=== PATIENT | female | born 1940 | race Caucasian/White ===

== ENCOUNTER → 2020-07-15 12:30 | Outpatient (CLI) | payer MEDICARE, SELFPAY ==
--- NOTE | 2020-07-15 12:41 | XR_ITS ---
PROCEDURE: XR CHEST PORTABLE CLINICAL HISTORY: COVID TESTING COMPARISON: CR CXR CHEST(2 VIEWS-NOT PORTABLE) from 06/22/2014 CR CXR CHEST(2 VIEWS-NOT PORTABLE) from 08/10/2016 FINDINGS: The cardiomediastinal silhouette and pulmonary vascularity are within normal limits. The lungs are clear without infiltrates, suspicious nodules, or pleural effusions. No acute bony abnormalities. There is a metallic plate with multiple threaded screws extending from right humeral head to the proximal humeral shaft IMPRESSION: No acute findings. Dictated by: Dr. Minesh Masters MD 07/15/2020 13:15 Dr. Minesh Masters MD in [place] 07/15/2020 13:15
[2020-07-15 13:06] LABS: Basophils # 0.1 K/mm3 (0-0.2); Basophils % 0.8 % (0.1-2.0); Eosinophils # 0.2 K/mm3 (0.0-0.4); Eosinophils % 2.7 % (0.1-12.0); Hematocrit 47.9 % (37.0-47.0); Hemoglobin 15.1 g/dL (12.2-16.2); Lymphocytes # 2.7 K/mm3 (0.7-4.5); Lymphocytes % 33.4 % (10-50); Mean Corpuscular HGB Conc 31.5 g/dL (31.8-35.4); Mean Corpuscular Hemoglobin 28.3 pg (27.0-31.2); Mean Platelet Volume 7.7 fl (7.4-10.4); Monocytes # 0.6 K/mm3 (0.1-1.0); Neutrophils # 4.5 K/mm3 (1.8-7.8); Neutrophils % 56.1 % (37.0-80.0); Platelet Count 236 K/mm3 (142-424); Red Blood Count 5.33 M/mm3 (4.20-5.40); Red Cell Distribution Width 14.4 % (11.5-17.5)
== END ==
PROVIDERS: PCP Family Medicine; Visit Provider Nurse Practitioner
DX: Z20.822 Contact with and (suspected) exposure to COVID-19 (principal)
CPT/HCPCS: 36415; 71045; 85025; U0003

== ENCOUNTER 2021-01-05 19:22 | Emergency (ER) | payer MEDICARE, SELFPAY ==
[2021-01-05 19:22] VITALS: BP 122/69; PULSE 86; RESP 18; TEMP 36.9; O2SAT 94; BMI 31.1
--- NOTE | 2021-01-05 20:21 | PC.NURSE ---
calling [facility] for Dr. Travis Muniz- ophthalmology.
--- NOTE | 2021-01-05 20:24 | PC.NURSE ---
Dr. Parra s/w Dr. Muniz
--- NOTE | 2021-01-05 20:30 | PC.NURSE ---
Per Dr. Muniz- he'd like pt to do 1drop/hr while awake to R eye of prescribed drops. Pt to see Dr. Muniz's office at 0900 01/06. Pt to use drops up till 1 hr prior to appt.
--- NOTE | 2021-01-05 20:35 | HMH.EDGENADL ---
ED Disposition Clinical Impression: Other acute postprocedural pain Eye pain Qualifiers: Laterality: right Qualified Code(s): H57.11 - Ocular pain, right eye Disposition: Home, Self-Care Condition on Discharge: Good Instructions: DI for Eye Pain Additional Instructions: see opth in am Referrals: Fidel Sabillon MD [Primary Care Provider] - - Critical Care Critical Care Time: No Attestation: On 01/05/21, the high probability of a clinically significant, sudden or life threatening deterioration of the following system(s) required my full and direct attention, intervention and personal management. The time I documented below is in addition to time spent performing reported procedures but includes the following listed in this critical care notation. Medical Decision Making - Medical Records Medical records reviewed: Yes: I reviewed the patient's medical records. - Yandel Inquiry Pt receiving controlled substance: No Vital Signs: 01/05/21 19:22 Temperature 98.4 F Temperature Source Oral Pulse Rate [Apical] 86 Respiratory Rate 18 Blood Pressure [Right Arm] 122/69 Blood Pressure Mean [Right Arm] 86 Blood Pressure Source [Right Arm] Automatic Cuff Blood Pressure Position [Right Arm] Sitting 02 Sat by Pulse Oximetry 94 L Oxygen Delivery Method Room Air - Physician Consults Physician Consulted: eye surg Reason -: Pt condition Medical Decision Narrative: post procedure rt eye pain - use eye drop q1h till asleep and in am and see dr at 0900 General Adult HPI - General Chief complaint: PAIN Stated complaint: R eye pain (laser surgery Dec) Time Seen by Provider: 01/05/21 20:00 Mode of Arrival: Ambulatory Source of Information: Patient, Medical Record Limitations: No Limitations Description of Symptoms (Recalled from ER Triage Doc. by RN): Patient states that she had right sided glaucoma laser surgery today in [place] by . Patient states that her right eye was hurting following the procedure and her vision was blurry so she went to the pharmacy and picked up her prescription eye drops that were ordered and used one. States that the eye drop helped but didn't stop all of her pain. States that she took one of her prescription pain pills that she is ordered, which is a norco 7.5 and it has not alleviated her pain either. States that her vision is also blurry post surgery. - History of Present Illness HPI narrative: had eye procedure this afternoon and about 1 hr later had pain to rt eye with blurred vision and has thrombing pain - has used eye drops- no other sx Onset (ago): hour(s) Location: eyes Severity: moderate Associated symptoms: denies other symptoms Treatments prior to arrival: none - Related Data Home Medications Medication Instructions Recorded Confirmed Amlodipine Besylate [Norvasc 5mg 5 mg PO DAILY 01/05/21 01/05/21 tablet] Amlodipine Besylate [Norvasc 5mg 5 mg PO DAILY 01/05/21 01/05/21 tablet] Beclomethasone Dipropionate [Qvar 10.6 gm IH DAILY 01/05/21 01/05/21 Redihaler] Duloxetine HCl 60 mg PO DAILY 01/05/21 01/05/21 Duloxetine HCl [Cymbalta 30mg 30 mg PO DAILY 01/05/21 01/05/21 capsule] Hydrocodone/Acetaminophen 1 tab PO TID 01/05/21 01/05/21 [Hydrocodone-Acetamin 7.5-325] Montelukast Sodium 10 mg PO DAILY 01/05/21 01/05/21 Pravastatin Sodium 80 mg PO HS 01/05/21 01/05/21 Prednisolone Acetate/Bromfenac 3.5 ml OP QID 01/05/21 01/05/21 [Prednisolone 1%-Bromfen 0.075%] Pregabalin [Lyrica 100mg Cap] 100 mg PO DAILY 01/05/21 01/05/21 lisinopriL [Lisinopril] 20 mg PO DAILY 01/05/21 01/05/21 Allergies Allergy/AdvReac Type Severity Reaction Status Date / Time Sulfa (Sulfonamide Allergy Mild Unverified 02/05/17 14:29 Antibiotics) [SULFA (SULFONAMIDE ANTIBIOTICS)] [facility] History - Hepatitis A Screen Drug use history?: No High risk sexual behaviors?: No History of sexually transmitted infection?: No Curren
[2021-01-05 21:12] VITALS: BP 119/58; PULSE 60; RESP 22; TEMP 36.8; O2SAT 97
== END 2021-01-05 21:15 | disposition home or self-care (01) ==
PROVIDERS: Emergency Provider Emergency Medicine; PCP Family Medicine
DX: G89.18 Other acute postprocedural pain (principal); H57.11 Ocular pain, right eye; H40.9 Unspecified glaucoma; Z88.2 Allergy status to sulfonamides
CPT/HCPCS: 99281

== ENCOUNTER → 2021-07-22 10:21 | Outpatient (CLI) | payer MEDICARE, SELFPAY ==
[2021-07-22 11:06] LABS: Basophils # 0.2 K/mm3 (0-0.2); Basophils % 2.5 % (0.1-2.0); Eosinophils # 0.3 K/mm3 (0.0-0.4); Eosinophils % 3.1 % (0.1-12.0); Lymphocytes # 2.9 K/mm3 (0.7-4.5); Lymphocytes % 33.6 % (10-50); Mean Corpuscular HGB Conc 33.4 g/dL (31.8-35.4); Mean Corpuscular Hemoglobin 29.8 pg (27.0-31.2); Mean Corpuscular Volume 89.1 fl (81-99); Mean Platelet Volume 8.6 fl (7.4-10.4); Monocytes # 0.6 K/mm3 (0.1-1.0); Monocytes % 7.2 % (1.7-9.3); Neutrophils # 4.7 K/mm3 (1.8-7.8); Neutrophils % 53.6 % (37.0-80.0); Platelet Count 227 K/mm3 (142-424); Red Blood Count 5.05 M/mm3 (4.20-5.40); Red Cell Distribution Width 14.7 % (11.5-17.5); White Blood Count 8.7 K/mm3 (4.8-10.8)
[2021-07-22 11:41] LABS: Alanine Aminotransferase 18 U/L (12-78); Albumin Level 4.2 g/dl (3.5-5.0); Albumin/Globulin Ratio 1.8 (1.1-1.8); Alkaline Phosphatase 93 U/L (38-126); Anion Gap 12.3 mEq/L (5-15); Aspartate Amino Transferase 35 U/L (14-36); Blood Urea Nitrogen 19 mg/dl (7-17); Calcium 9.6 mg/dl (8.4-10.2); Carbon Dioxide 29 mmol/L (22.0-30.0); Chloride 102 mmol/L (98-107); Chol/HDL Ratio 2.9 (1-3.5); Cholesterol 159 mg/dl (140-200); Estimated Glomerular Filt Rate 53 ml/min (>60); GFR (African American) 64 ML/MIN (>60); Globulin 2.3 g/dL (1.3-3.2); Glucose 105 mg/dl (74-100); HDL Cholesterol 54 mg/dl (40-60); Potassium 4.3 mmoL/L (3.5-5.1); Sodium 139 mmol/L (136-145); Total Protein,Serum 6.5 g/dl (6.3-8.2); Triglycerides 113 mg/dl (30-150); VLDL Cholesterol 23 mg/dL (0-40)
[2021-07-22 11:43] LABS: Bilirubin,Total 0.1 mg/dl (0.2-1.3)
[2021-07-22 11:52] LABS: Direct LDL Cholesterol 74.76 mg/dL (100-129)
[2021-07-22 11:57] LABS: T4 (Thyroxine) 6.7 ug/dl (5.53-11.0)
[2021-07-22 11:58] LABS: 25-OH Vitamin D, Total 67.3 ng/mL (30-100)
[2021-07-22 12:11] LABS: Thyroid Stimulating Hormone 5.96 uIU/mL (0.465-4.68)
== END ==
PROVIDERS: PCP Family Medicine; Visit Provider Family Medicine
DX: I10 Essential (primary) hypertension (principal); E78.5 Hyperlipidemia, unspecified; E03.9 Hypothyroidism, unspecified; E55.9 Vitamin D deficiency, unspecified; M79.7 Fibromyalgia
CPT/HCPCS: 36415; 80053; 80061; 82306; 84436; 84443; 85025

== ENCOUNTER 2021-09-02 20:48 | Observation (INO) | payer MEDICARE, SELFPAY ==
[2021-09-02 20:48] VITALS: BP 169/78; PULSE 82; RESP 18; TEMP 36.8; O2SAT 95; BMI 30.8
[2021-09-02 20:58] VITALS: BMI 30.8
--- NOTE | 2021-09-02 20:58 | XR_ITS ---
PROCEDURE INFORMATION: Exam: XR Chest Exam date and time: 09/02/2021 10:00 PM Age: 81 years old Clinical indication: Chest pressure; Patient HX: Several recent falls, confusion, neck/back pain; Additional info: Fall TECHNIQUE: Imaging protocol: Radiologic exam of the chest. Views: 4 or more views. COMPARISON: CR XR CHEST PORTABLE 07/15/2020 1:01 PM FINDINGS: Lungs: Well aerated with no evidence of consolidations, interstitial patterns or pulmonary nodules. Pleural spaces: No evidence of effusions or pneumothorax. Heart/Mediastinum: The cardiomediastinal silhouette is normal in size and configuration. There is no evidence of cardiomegaly. Bones/joints: Status post ORIF of the right proximal humerus. No acute fractures identified. IMPRESSION: 1. No radiographic evidence of an acute pulmonary process. 2. Status post ORIF of the right proximal humerus.
--- NOTE | 2021-09-02 20:58 | CT_ITS ---
PROCEDURE INFORMATION: Exam: CT Lumbar Spine Without Contrast Exam date and time: 09/02/2021 9:37 PM Age: 81 years old Clinical indication: Low back pain; Patient HX: Several recent falls, confusion, neck/back pain; Additional info: Fall TECHNIQUE: Imaging protocol: Computed tomography of the lumbar spine without contrast. Radiation optimization: All CT scans at this facility use at least one of these dose optimization techniques: automated exposure control; mA and/or kV adjustment per patient size (includes targeted exams where dose is matched to clinical indication); or iterative reconstruction. COMPARISON: [facility] CT LUMBAR SPINE W/O CONTRAST 03/17/2016 4:57 AM FINDINGS: Bones/joints: No acute fracture. Normal alignment. Levoscoliosis of approximately 31 degrees. Discs/Spinal canal/Neural foramina: Lumbar disc desiccation and bulging annuli. Facet and ligamentum hypertrophy changes, as well as mild dorsal/lateral osteophytes causing multifactorial moderate central canal narrowing at L4-L5 and L5-S1. Foraminal narrowing from the level of L2 to the level of S1. Soft tissues: Unremarkable. IMPRESSION: 1. No acute fractures or listhesis. 2. Levoscoliosis of approximately 31 degrees. 3. Degenerative changes and spondylosis multifactorial moderate central canal narrowing at L4-L5 and L5-S1 and narrowing from the level of L2 to the level of S1.
--- NOTE | 2021-09-02 20:58 | XR_ITS ---
PROCEDURE INFORMATION: Exam: XR Right Knee Exam date and time: 09/02/2021 9:57 PM Age: 81 years old Clinical indication: Knee; Right; Patient HX: Several recent falls, confusion, neck/back pain; Additional info: Fall TECHNIQUE: Imaging protocol: Radiologic exam of the Right knee. Views: 3 views. COMPARISON: No relevant prior studies available. FINDINGS: Bones/joints: The regional bones are intact. No lytic or blastic lesions are identified. There is no evidence of dislocation. Soft tissues: Normal. IMPRESSION: No acute fractures or dislocations.
--- NOTE | 2021-09-02 20:58 | XR_ITS ---
PROCEDURE INFORMATION: Exam: XR Pelvis Exam date and time: 09/02/2021 10:02 PM Age: 81 years old Clinical indication: Pelvic pain; Patient HX: Several recent falls, confusion, neck/back pain; Additional info: Fall TECHNIQUE: Imaging protocol: Radiologic exam of the pelvis. Views: 1 or 2 view. COMPARISON: [facility]/O CT ABD PELVIS W/O CONTRAST 03/17/2016 4:52 AM FINDINGS: Bones/joints: Intact. No acute fractures or dislocations identified. There are no lytic or blastic lesions. Decrease in the hip joint spaces in keeping with the patient's age. Mild lumbar dextroscoliosis, disc desiccation and lumbar spondylosis. Soft tissues: Ortiz catheter in the topography of the urinary bladder. IMPRESSION: 1. No acute fractures or dislocations. 2. Degenerative changes.
--- NOTE | 2021-09-02 20:58 | CT_ITS ---
PROCEDURE INFORMATION: Exam: CT Cervical Spine Without Contrast Exam date and time: 09/02/2021 9:31 PM Age: 81 years old Clinical indication: Neck pain; Patient HX: Several recent falls, confusion, neck/back pain; Additional info: Fall TECHNIQUE: Imaging protocol: Computed tomography of the cervical spine without contrast. Radiation optimization: All CT scans at this facility use at least one of these dose optimization techniques: automated exposure control; mA and/or kV adjustment per patient size (includes targeted exams where dose is matched to clinical indication); or iterative reconstruction. COMPARISON: [facility] CT CERVICAL SPINE W/O CONT 03/17/2016 5:09 AM FINDINGS: Bones/joints: No acute fracture. Normal alignment. Discs/Spinal canal/Neural foramina: Diffuse disc desiccation. Mild dorsal/lateral osteophytes. No evidence of disc herniations, severe spinal canal stenosis. Mild multilevel foraminal narrowing. Lungs: Lung apices are normal. Soft tissues: Unremarkable. IMPRESSION: 1. No acute fractures or listhesis . 2. Degenerative changes.
--- NOTE | 2021-09-02 20:58 | XR_ITS ---
PROCEDURE INFORMATION: Exam: XR Left Knee Exam date and time: 09/02/2021 9:54 PM Age: 81 years old Clinical indication: Knee; Left; Patient HX: Several recent falls, confusion, neck/back pain; Additional info: Fall TECHNIQUE: Imaging protocol: Radiologic exam of the Left knee. Views: 3 views. COMPARISON: No relevant prior studies available. FINDINGS: Bones/joints: The regional bones are intact. No lytic or blastic lesions are identified. There is no evidence of dislocation. Chondrocalcinosis. Soft tissues: Normal. IMPRESSION: 1. No acute fractures or dislocation. 2. Chondrocalcinosis.
--- NOTE | 2021-09-02 20:58 | CT_ITS ---
PROCEDURE INFORMATION: Exam: CT Thoracic Spine Without Contrast Exam date and time: 09/02/2021 9:34 PM Age: 81 years old Clinical indication: Pain in thoracic spine; Patient HX: Several recent falls, confusion, neck/back pain; Additional info: Fall TECHNIQUE: Imaging protocol: Computed tomography of the thoracic spine without contrast. Radiation optimization: All CT scans at this facility use at least one of these dose optimization techniques: automated exposure control; mA and/or kV adjustment per patient size (includes targeted exams where dose is matched to clinical indication); or iterative reconstruction. COMPARISON: [facility] CT THORACIC SPINE W/O CONTRAST 03/17/2016 5:03 AM FINDINGS: Bones/joints: No acute fracture. Normal alignment. Discs/Spinal canal/Neural foramina: No significant disc protrusion. No severe spinal canal stenosis. No significant neural foraminal narrowing. Soft tissues: Unremarkable. IMPRESSION: No acute fractures or listhesis.
--- NOTE | 2021-09-02 20:58 | CT_ITS ---
PROCEDURE INFORMATION: Exam: CT Head Without Contrast Exam date and time: 09/02/2021 9:28 PM Age: 81 years old Clinical indication: Altered mental status/memory loss; Confusion or disorientation; Patient HX: Several recent falls, confusion, neck/back pain; Additional info: Fall TECHNIQUE: Imaging protocol: Computed tomography of the head without contrast. Radiation optimization: All CT scans at this facility use at least one of these dose optimization techniques: automated exposure control; mA and/or kV adjustment per patient size (includes targeted exams where dose is matched to clinical indication); or iterative reconstruction. COMPARISON: [facility] CT CERVICAL SPINE W/O CONT 03/17/2016 5:09 AM FINDINGS: Brain: There is mild enlargement of ventricular system and cortical sulci without evidence of mass effect or midline shift. Patchy areas of hypodensity without mass-effect are noted in the periventricular white matter compatible with chronic microvascular ischemic disease. The monsivais/white matter interfaces are preserved. There are no extra-axial fluid collections.The basal cisterns are patent. Cerebral ventricles: No hydrocephalus. Paranasal sinuses: Well aerated. No fluid levels. Mastoid air cells: Visualized mastoid air cells are well aerated. Bones/joints: Unremarkable. No acute fracture. Soft tissues: Unremarkable. IMPRESSION: 1. No evidence of intracranial hemorrhage, mass effect, midline shift or hydrocephalus. 2. Involutional changes. 3. Findings compatible with chronic microvascular ischemic disease.
--- NOTE | 2021-09-02 21:00 | ECG_ITS ---
APPROVED REPORT Exam: Resting ECG HR:76 bpm ECG Measurements Heart Rate 76 AXES MO 170 P 64 QRSd 89 QRS -5 QT 379 T 67 QTc 410 Conclusion SINUS RHYTHM LOW QRS VOLTAGE IN PRECORDIAL LEADS [QRS DEFLECTION < 1.0 mV IN CHEST LEADS] BORDERLINE ECG UNCONFIRMED REPORT Electronically signed by : Obed Carrington MD 09/03/2021 16:24:15
[2021-09-02 21:01] LABS: Coronavirus 19, PCR Not Detected (NotDetected); Influenza A, PCR Not Detected (NotDetected); Influenza B, PCR Not Detected (NotDetected)
[2021-09-02 21:03] VITALS: BP 172/80; PULSE 76; O2SAT 100
[2021-09-02 21:11] LABS: Basophils # 0.2 K/mm3 (0-0.2); Eosinophils # 0.2 K/mm3 (0.0-0.4); Eosinophils % 3.2 % (0.1-12.0); Hemoglobin 14.8 g/dL (12.2-16.2); Lymphocytes # 2.8 K/mm3 (0.7-4.5); Lymphocytes % 38.2 % (10-50); Mean Corpuscular HGB Conc 32.2 g/dL (31.8-35.4); Mean Corpuscular Hemoglobin 29.4 pg (27.0-31.2); Mean Corpuscular Volume 91.4 fl (81-99); Mean Platelet Volume 8.9 fl (7.4-10.4); Monocytes # 0.5 K/mm3 (0.1-1.0); Monocytes % 6.8 % (1.7-9.3); Neutrophils # 3.7 K/mm3 (1.8-7.8); Neutrophils % 49.8 % (37.0-80.0); Platelet Count 212 K/mm3 (142-424); Red Blood Count 5.03 M/mm3 (4.20-5.40); White Blood Count 7.4 K/mm3 (4.8-10.8)
[2021-09-02 21:24] VITALS: BP 125/105; BP 172/80; BP 177/88; PULSE 76; PULSE 77; PULSE 82
--- NOTE | 2021-09-02 21:28 | PC.NURSE ---
Pt gone to RAD for CT and XRAY
[2021-09-02 21:29] LABS: Alanine Aminotransferase 22 U/L (12-78); Albumin Level 3.9 g/dl (3.5-5.0); Albumin/Globulin Ratio 1.6 (1.1-1.8); Alkaline Phosphatase 82 U/L (38-126); Anion Gap 10.5 mEq/L (5-15); Aspartate Amino Transferase 48 U/L (14-36); Bilirubin,Total 0.2 mg/dl (0.2-1.3); Blood Urea Nitrogen 14 mg/dl (7-17); Calcium 9.1 mg/dl (8.4-10.2); Carbon Dioxide 26 mmol/L (22.0-30.0); Chloride 106 mmol/L (98-107); Creatinine Clearance Estimated 48 mL/min (50-200); Estimated Glomerular Filt Rate 60 ml/min (>60); GFR (African American) 72 ML/MIN (>60); Globulin 2.5 g/dL (1.3-3.2); Glucose 127 mg/dl (74-100); Potassium 4.5 mmoL/L (3.5-5.1); Sodium 138 mmol/L (136-145); Total Protein,Serum 6.4 g/dl (6.3-8.2)
[2021-09-02 21:31] LABS: Microscopic, Urine URINE MICROSCOPIC (MICROSCOPIC)
[2021-09-02 21:32] LABS: Erythrocyte Sedimentation Rate 6 mm/hr (0-30)
[2021-09-02 21:34] LABS: C-Reactive Protein 2.1 mg/L (0-4)
[2021-09-02 21:40] LABS: Lactic Acid 1.1 mmol/L (0.7-2.1)
[2021-09-02 21:44] LABS: Troponin I < 0.01 ng/ml (0.00-0.034)
[2021-09-02 21:44] LABS: Appearance,Urine CLEAR (Clear); Bilirubin,Urine Negative (Negative); Blood, Urine Negative (Negative); Color,Urine YELLOW (Yellow); Glucose,Urine (UA) Negative (Negative); Ketones,Urine Negative (Negative); Leukocyte Esterase,Urine 1+ (Negative); Nitrate,Urine Negative (Negative); Protein,Urine Negative (Negative); Specific Gravity, Urine <= 1.005 (1.005-1.030); Urobilinogen,Urine 0.2 EU/dl (0.2)
[2021-09-02 22:46] VITALS: BP 155/66; PULSE 78; O2SAT 100
--- NOTE | 2021-09-02 22:50 | PC.NURSE ---
[facility]CS 15- NO COMPLAINTS VOICED. NO ACUTE DISTRESS NOTED. FAMILY AT BEDSIDE. PT REPOSITIONED FOR COMFORT.
[2021-09-02 23:00] VITALS: BP 144/73; PULSE 73; O2SAT 97
[2021-09-02 23:30] VITALS: BP 149/68; PULSE 73; O2SAT 95
[2021-09-03] VITALS (16 sets, daily range): BP systolic 105–145; BP diastolic 40–69; PULSE 65–90; RESP 16–18; TEMP 36.6–37; O2SAT 91–96; BMI 31.3
--- NOTE | 2021-09-03 00:48 | HMH.EDFALL ---
ED Disposition Clinical Impression: Weakness Disposition: Admitted as Observation Condition on Discharge: Fair - Critical Care Critical Care Time: No Attestation: On 09/02/21, the high probability of a clinically significant, sudden or life threatening deterioration of the following system(s) required my full and direct attention, intervention and personal management. The time I documented below is in addition to time spent performing reported procedures but includes the following listed in this critical care notation. Medical Decision Making - Medical Records Medical records reviewed: Yes: I reviewed the patient's medical records. - Yandel Inquiry Pt receiving controlled substance: No Vital Signs: 09/02/21 20:48 09/02/21 21:03 09/02/21 21:24 Temperature 98.3 F Temperature Source Oral Pulse Rate 76 Pulse Rate [Left Radial] 82 Pulse Rate [Orthostatic Lying Right] 76 Pulse Rate [Orthostatic Sitting Right] 77 Pulse Rate [Orthostatic Standing Right] 82 Respiratory Rate 18 Blood Pressure 172/80 H Blood Pressure [Orthostatic Lying Right Arm] 172/80 H Blood Pressure [Orthostatic Sitting Right Arm] 177/88 H Blood Pressure [Orthostatic Standing Right Arm] 125/105 H Blood Pressure [Right Arm] 169/78 H Blood Pressure Mean Blood Pressure Mean [Right Arm] 108 Blood Pressure Source [Right Arm] Automatic Cuff Blood Pressure Position Blood Pressure Position [Right Arm] Sitting 02 Sat by Pulse Oximetry 95 100 Oxygen Delivery Method Room Air Room Air 09/02/21 22:46 09/02/21 23:00 09/02/21 23:30 Temperature Temperature Source Pulse Rate 78 73 73 Pulse Rate [Left Radial] Pulse Rate [Orthostatic Lying Right] Pulse Rate [Orthostatic Sitting Right] Pulse Rate [Orthostatic Standing Right] Respiratory Rate Blood Pressure 155/66 H 144/73 H 149/68 H Blood Pressure [Orthostatic Lying Right Arm] Blood Pressure [Orthostatic Sitting Right Arm] Blood Pressure [Orthostatic Standing Right Arm] Blood Pressure [Right Arm] Blood Pressure Mean Blood Pressure Mean [Right Arm] Blood Pressure Source [Right Arm] Blood Pressure Position Blood Pressure Position [Right Arm] 02 Sat by Pulse Oximetry 100 97 95 Oxygen Delivery Method Room Air Room Air Room Air 09/03/21 00:00 09/03/21 00:30 09/03/21 01:00 Temperature Temperature Source Pulse Rate 77 70 73 Pulse Rate [Left Radial] Pulse Rate [Orthostatic Lying Right] Pulse Rate [Orthostatic Sitting Right] Pulse Rate [Orthostatic Standing Right] Respiratory Rate Blood Pressure 144/67 H 145/68 H 145/63 H Blood Pressure [Orthostatic Lying Right Arm] Blood Pressure [Orthostatic Sitting Right Arm] Blood Pressure [Orthostatic Standing Right Arm] Blood Pressure [Right Arm] Blood Pressure Mean Blood Pressure Mean [Right Arm] Blood Pressure Source [Right Arm] Blood Pressure Position Blood Pressure Position [Right Arm] 02 Sat by Pulse Oximetry 94 L 95 95 Oxygen Delivery Method Room Air Room Air Room Air 09/03/21 01:30 09/03/21 02:00 09/03/21 02:30 Temperature 98.3 F Temperature Source Oral Pulse Rate 75 76 74 Pulse Rate [Left Radial] Pulse Rate [Orthostatic Lying Right] Pulse Rate [Orthostatic Sitting Right] Pulse Rate [Orthostatic Standing Right] Respiratory Rate 16 Blood Pressure 117/56 L 105/60 L 130/58 L Blood Pressure [Orthostatic Lying Right Arm] Blood Pressure [Orthostatic Sitting Right Arm] Blood Pressure [Orthostatic Standing Right Arm] Blood Pressure [Right Arm] Blood Pressure Mean 63 Blood Pressure Mean [Right Arm] Blood Pressure Source [Right Arm] Blood Pressure Position Blood Pressure Position [Right Arm] 02 Sat by Pulse Oximetry 94 L 91 L 95 Oxygen Delivery Method Room Air Room Air 09/03/21 02:49 09/03/21 03:31 Temperature 98.3 F Temperature Source Oral Pulse Rate 74 Pulse Rate [Left
[2021-09-03 01:17] LABS: Troponin I 0.02 ng/ml (0.00-0.034)
--- NOTE | 2021-09-03 03:11 | PC.NURSE ---
PT ARRIVED TO FLOOR VIA STRETCHER FROM ED W/STAFF @ [id number]
[2021-09-03 03:51] LABS: Troponin I 0.01 ng/ml (0.00-0.034)
--- NOTE | 2021-09-03 08:27 | P.CONPHA_ITS ---
[facility] Pharmacy VTE Monitoring - Patient Demographics Admission date: 09/03/21 Report Date: 09/03/21 Time: 08:27 Allergies/Adverse Reactions: Patient Allergies Sulfa (Sulfonamide Antibiotics) [SULFA (SULFONAMIDE ANTIBIOTICS)] Allergy (Mild, Verified 01/05/21 21:13) Height: 1.52 m Weight: 72.393 kg Patient Problems: Current Active Problems Weakness (Acute) - VTE Risk Labs: VTE Related Lab Results Hgb 14.8 g/dL (12.2-16.2) 09/02/21 21:03 Hct 46.0 % (37.0-47.0) 09/02/21 21:03 Plt Count 212 K/mm3 (142-424) 09/02/21 21:03 BUN 14 mg/dl (7-17) 09/02/21 21:03 Creatinine 0.90 mg/dl (0.52-1.04) 09/02/21 21:03 Estimated Creat Clear 48 mL/min (50-200) 09/02/21 21:03 Was VTE Risk Assessment Performed: Yes VTE Score: 4 VTE Risk Level: Low Risk Clinical Trial Participant: No - Prophylaxis VTE Prophylaxis Ordered?: Yes Types of VTE Prophylaxis: TEDS Knee High
--- NOTE | 2021-09-03 08:36 | HMH.PHAINT ---
home medication list verified using list from outpatient pharmacy
--- NOTE | 2021-09-03 09:26 | HMH.HP ---
*Admission Date: 09/03/21 *Chief complaint: Fall, leg weakness *History of present illness: Ms. Rizvi is a 81-year-old white female with a history of hypertension, hyperlipidemia, depression, fibromyalgia, and chronic low back pain. She was brought to the emergency room by ambulance in the carbon paper interleafer hours this morning after suffering a fall at home. States she was walking through the house when her legs simply became weak and gave out. She fell forward landing on her knees and thinks she also hit her head. There was no loss of consciousness. She was able to crawl into her chair but could not walk or stand up because of leg weakness. States her arms were also weak at the time. She lives alone but was able to contact her son who arranged for ambulance transport to the ER. She was evaluated in the ER with multiple x-rays, CT scans, and blood work. X-ray showed no acute findings. Laboratory data was within normal limits except her urinalysis showed 1+ leukocytes. She currently is on antibiotics at home for UTI. At the time of my exam this morning, she feels like her arms and legs are getting back to normal although has not been out of bed. She otherwise has no complaints. [facility] History Medical History: Reports:: Asthma, Gastroesophageal Reflux Disease(GERD), Hyperlipidemia, Hypertension Denies:: Cancer, Diabetes Mellitus Type 1, Diabetes Mellitus Type 2, MRSA *Have you ever received a pneumonia vaccine?: Yes *Have you received a flu vaccine this season?: Yes Other Medical History: Reports: Arthritis, Cataracts, Fibromyalgia, Glaucoma, Thyroid Disease, Other (Chronic low back pain, seasonal allergies) Laterality Cases: Bilateral: Cataract Other Surgeries: Yes: Cholecystectomy, Colonoscopy, Hysterectomy-Partial, Other (Right shoulder surgery) Amputation: No Fractures: Yes (both shoulders) - *Social History Last grade of school completed: High school graduate Smoking Status: Never smoker Alcohol Intake: never *Occupational Status:: retired Housing: house Household Members: none *Travel in the last 8 weeks: None Family Hx:: Cancer, Stroke Review of Systems - Constitutional Reports fever(s), Reports weakness, Denies body ache(s) - Eyes Denies change in vision - ENT Denies hearing loss, Denies sore throat - *Cardiovascular Reports rapid, pounding, or irregular heartbeat, Denies chest pain, Denies shortness of breath, Denies leg swelling - *Respiratory Denies chest congestion - *Gastrointestinal Denies abdominal pain, Denies change in bowel habits, Denies black, tarry stools - *Genitourinary Denies difficulty urinating, Denies urinary incontinence - *Musculoskeletal Reports abnormal walking, Reports back pain, Reports muscle weakness - Integumentary/Breasts Denies change in skin color, Denies rash - *Neurologic Reports weakness, Denies dizziness, Denies localized weakness, Denies headache(s), Denies memory loss - Psychiatric Reports anxiety, Denies behavioral changes - Endocrine Denies cold intolerance - Hematologic/Lymphatic Denies easy bruising Meds Home Medications Medication Instructions Recorded Confirmed Type Beclomethasone Dipropionate [Qvar 1 puff IH BID 01/05/21 09/03/21 History Redihaler] Duloxetine HCl 60 mg PO DAILY 01/05/21 09/03/21 History Duloxetine HCl [Cymbalta 30mg 30 mg PO DAILY 01/05/21 09/03/21 History capsule] Hydrocodone/Acetaminophen 1 tab PO TID PRN 01/05/21 09/03/21 History [Hydrocodone-Acetamin 7.5-325] Montelukast Sodium 10 mg PO PM 01/05/21 09/03/21 History Pregabalin [Lyrica 100mg Cap] 100 mg PO TID 01/05/21 09/03/21 History lisinopriL [Lisinopril] 20 mg PO DAILY 01/05/21 09/03/21 History Omeprazole [Omeprazole 20mg 20 mg PO DAILY 09/02/21 09/03/21 History Capsule] Amlodipine Besylate [Norvasc 5mg 5 mg PO DAILY 09/03/21 09/03/21 History tablet] Baclofen [Lioresal 10mg tablet] 10 mg PO TID 09/03/21 09/03/21 History Bimatoprost [Lumigan 0.01%
--- NOTE | 2021-09-03 10:52 | PC.NURSE ---
Rounded on pt, cleaned and straightened room, ice water provided. Pt in bed resting, no needs voiced.
--- NOTE | 2021-09-03 15:58 | HMH.PTEV ---
Physical Therapy Evaluation Rehab PT IP Evaluation Start: 09/03/21 06:29 Freq: ONCE Status: Active Protocol: Document 09/03/21 15:51 PWARIA (Rec: 09/03/21 15:58 PWARIA [id number]) Subjective/History History History This is the initial IP PT evalaution for Dang Rizvi. Pt is an 81 y/o female admitted to [facility] after suffering fall at home. Pt lives alone and became weak at home. Pt reports her legs wouldn't hold her - pt was able to call EMS and was delivered to [facility] ED Subjective Subjective Pt reprots she is feeling better - pt states she uses a chair at to home to ambulate - pt reports she takes a kitchen table chair and turns it around and pushes it to help support her. Rehab PT IP Eval Objective Appearance Patient Behavior Appropriate,Cooperative Patient Orientation Place,Name,Birthday,Year Difficulty following instructions none Speech Pattern Clear,Appropriate Ambulation Patient Able to Ambulate Yes Ambulation Observation IP General Gait Pattern Observation Shuffling Step Ambulation Distance (feet) 10 Ambulation Assistive Device None Ambulation Ability Contact Guard/Hand Hold Balance Ability to Arise Able, uses arms to help Sitting Balance Steady, safe Standing Balance Steady, wide stance Dynamic Sitting Balance Ability Good Dynamic Standing Balance Ability Poor Transfers Bed Transfer Ability Independent Chair Transfer Ability Independent Sit to Stand Bed Transfer Ability Contact Guard/Hand Hold Sit to Stand Chair Transfer Ability Contact Guard/Hand Hold Rehab PT IP prob,goals,plan Problems Date of Evaluation: 09/03/21 PT IP Problems Transfers,Gait,Balance,Self care,Safety Rehab Potential Rehab Potential Fair Equipment Needs Assistive Devices Rolling / Wheeled Walker Plan PT Intervention Plan Transfers,Gait,Balance,Self care,Safety,Therapeutic Exercise PT Plan Frequency BID Duration LOS Discharge Goals Bed Transfer Ability Supervision/Stand by Sit to Stand Chair Transfer Ability Supervision/Stand by Ambulation Assistive Device Rolling Walker Ambulation D
--- NOTE | 2021-09-03 17:34 | PC.NURSE ---
pt was able to transfer with SBA or minor hand holding. She reports being fearful of falling. will continue to monitor.
[2021-09-04] VITALS: BP 109/54; PULSE 87; PULSE 90; RESP 16; TEMP 36.9; O2SAT 91
[2021-09-04 04:00] VITALS: BP 99/54; PULSE 84; PULSE 90; RESP 16; TEMP 37.1; O2SAT 90
[2021-09-04 05:00] VITALS: BMI 31.4
[2021-09-04 06:34] LABS: Basophils % 0.4 % (0.1-2.0); Eosinophils # 0.2 K/mm3 (0.0-0.4); Eosinophils % 2.6 % (0.1-12.0); Hematocrit 40.4 % (37.0-47.0); Hemoglobin 13.1 g/dL (12.2-16.2); Lymphocytes # 2.6 K/mm3 (0.7-4.5); Lymphocytes % 28.8 % (10-50); Mean Corpuscular HGB Conc 32.3 g/dL (31.8-35.4); Mean Corpuscular Hemoglobin 28.2 pg (27.0-31.2); Mean Corpuscular Volume 87.1 fl (81-99); Mean Platelet Volume 8.1 fl (7.4-10.4); Monocytes # 0.7 K/mm3 (0.1-1.0); Monocytes % 7.4 % (1.7-9.3); Neutrophils # 5.4 K/mm3 (1.8-7.8); Neutrophils % 60.9 % (37.0-80.0); Platelet Count 176 K/mm3 (142-424); Red Blood Count 4.64 M/mm3 (4.20-5.40); Red Cell Distribution Width 14.4 % (11.5-17.5); White Blood Count 8.9 K/mm3 (4.8-10.8)
[2021-09-04 06:45] LABS: Anion Gap 6.6 mEq/L (5-15); Blood Urea Nitrogen 10 mg/dl (7-17); Calcium 8.5 mg/dl (8.4-10.2); Carbon Dioxide 27 mmol/L (22.0-30.0); Chloride 110 mmol/L (98-107); Creatinine Clearance Estimated 49 mL/min (50-200); Estimated Glomerular Filt Rate 60 ml/min (>60); GFR (African American) 72 ML/MIN (>60); Glucose 101 mg/dl (74-100); Magnesium 1.9 mg/dl (1.6-2.3); Potassium 3.6 mmoL/L (3.5-5.1); Sodium 140 mmol/L (136-145)
[2021-09-04 08:00] VITALS: BP 146/62; PULSE 87; RESP 16; TEMP 36.6; O2SAT 95
--- NOTE | 2021-09-04 08:59 | PC.NURSE ---
LATE ENTRY - NO ACUTE CHANGES SINCE PREVIOUS ASSESSMENT. PT ALERT AND ORIENTED X 4. MEDICATED PER MAR DURING MY SHIFT FOR PAIN WITH FAVORABLE RESULTS. AROUND BEDTIME - PT RESTLESS AND STATED SHE COULDN'T GO TO SLEEP. MEDICATED PER MAR FOR INSOMNIA. PT ABLE TO REST AFTER MEDICATION ADMINISTRATION. PT HAS BEEN VOIDING PER ABBOTT CATH WITH ADEQUATE URINE OUTPUT. IV INFUSING PER ORDER. PT STATES SHE FEELS MORE RESTED THIS MORNING. NO OTHER NEEDS VOICED AT THIS TIME. CALL LIGHT IN REACH.
--- NOTE | 2021-09-04 09:52 | HMH.ACPN2 ---
<Audrey Joyce - Last Filed: 09/05/21 04:52> Internal Medicine - PN: Subj *Date: 09/05/21 *Time: 04:52 Interval history: She is feeling much better; She is weak but can walk. She is going home. Exam Vital signs and Labs for Last 24 Hours: Temp Pulse Resp BP Pulse Ox 97.9 F 87 16 146/62 H 95 09/04/21 08:00 09/04/21 08:00 09/04/21 08:00 09/04/21 08:00 09/04/21 08:00 Laboratory Results - last 24 hr 09/04/21 06:20: WBC 8.9, RBC 4.64, Hgb 13.1, Hct 40.4, MCV 87.1, MCH 28.2, MCHC 32.3, RDW 14.4, Plt Count 176, MPV 8.1, Neut % (Auto) 60.9, Lymph % (Auto) 28.8, [place] % (Auto) 7.4, Eos % (Auto) 2.6, Baso % (Auto) 0.4, Neut # (Auto) 5.4, Lymph # (Auto) 2.6, [place] # (Auto) 0.7, Eos # (Auto) 0.2, Baso # (Auto) 0.0 09/04/21 06:20: Sodium 140, Potassium 3.6, Chloride 110 H, Carbon Dioxide 27, Anion Gap 6.6, BUN 10 D, Creatinine 0.90, Estimated Creat Clear 49, Estimated GFR 60, Est GFR ( Amer) 72, Glucose 101 H, Calcium 8.5, Magnesium 1.9 I & O for Last 24 hours: Intake & Output 09/01/21 09/02/21 09/03/21 09/04/21 11:59 11:59 11:59 11:59 Intake Total 1000 / 1000 1200 / 1200 Output Total 1400 / 1400 1999 / 1999 Balance -400 / -400 -800 / -800 Weight 159 lb 9.6 oz 160 lb Microbiology Reports for the Last 24 Hours: Microbiology 09/02/21 21:24 Urine,Clean Catch Urine Culture - Preliminary NO GROWTH AFTER 24 HOURS - Constitutional no acute distress Comments: getting in wheelchair to go home - *Routine Respiratory Exam Present: CTA bilaterally (A&P) - *Routine Cardiovascular Exam Present: RRR - *Routine Abdominal Exam Present: soft, normoactive bowel sounds. Absent: tenderness - *Routine Extremities Exam Absent: edema, calf tenderness - *Routine Neurological Exam Present: alert, oriented X3 Assessment and Plan (1) Muscle weakness Status: Acute Category: Medical Code(s): M62.81 - Muscle weakness (generalized) (2) UTI (urinary tract infection) Status: Acute Category: Medical Code(s): N39.0 - Urinary tract infection, site not specified (3) Hypothyroidism Status: Acute Category: Medical Code(s): E03.9 - Hypothyroidism, unspecified (4) Fibromyalgia Status: Acute Category: Medical Code(s): M79.7 - Fibromyalgia (5) Chronic back pain Status: Acute Category: Medical Code(s): M54.9 - Dorsalgia, unspecified; G89.29 - Other chronic pain (6) Depression Status: Acute Category: Medical Code(s): F32.A - Depression, unspecified (7) Hypertension Status: Acute Category: Medical Code(s): I10 - Essential (primary) hypertension - Assessment and plan all Dx Assessment and Plan for all problems:: Discharged to home <Fidel Sabillon - Last Filed: 09/05/21 08:07> Internal Medicine - PN: Subj *Date: 09/04/21 *Time: 08:05 Exam Vital signs and Labs for Last 24 Hours: Temp Pulse Resp BP Pulse Ox 97.9 F 87 16 146/62 H 95 09/04/21 08:00 09/04/21 08:00 09/04/21 08:00 09/04/21 08:00 09/04/21 08:00 I & O for Last 24 hours: Intake & Output 09/02/21 09/03/21 09/04/21 09/05/21 11:59 11:59 11:59 11:59 Intake Total 1000 / 1000 1200 / 1200 Output Total 1400 / 1400 1999 / 1999 Balance -400 / -400 -800 / -800 Weight 159 lb 9.6 oz 159 lb 15.831 oz Microbiology Reports for the Last 24 Hours: Microbiology 09/02/21 21:24 Urine,Clean Catch Urine Culture - Final NO GROWTH AFTER 48 HOURS 09/02/21 21:12 Blood Blood Culture - Preliminary NO GROWTH AFTER 48 HOURS 07/16/22 21:12 Blood Blood Culture - Preliminary NO GROWTH AFTER 48 HOURS Assessment and Plan (1) Muscle weakness Status: Acute Category: Medical Code(s): M62.81 - Muscle weakness (generalized) (2) UTI (urinary tract infection) Status: Acute Category: Medical Code(s): N39.0 - Urinary tract i
[2021-09-04 10:10] VITALS: BMI 31.4
--- NOTE | 2021-09-04 10:14 | SW/DCPLANNER ---
I spoke with this patient this AM regarding plans. Patient lives at home alone and her son checks on her often. I explained options of placement vs home with home health. Patient and son agreed that patient could return home with home health services. Patient prefers to use [facility]: patient information/order has been faxed. Patient has also requested a rollator walker and this will be ordered through [facility]. The plan is for this patient to discharge home today.
--- NOTE | 2021-09-05 22:40 | HMH.DCSUM ---
General - General Admission date:: 09/03/21 <Fidel Sabillon - 09/14/21 22:38> 09/03/21 <Shirley Dean - 09/05/21 22:43> Discharge date: 09/04/21 <Shirley Dean - 09/05/21 22:43> HPI HPI: Ms. Rizvi is a 81-year-old white female with a history of hypertension, hyperlipidemia, depression, fibromyalgia, and chronic low back pain. 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 States she was walking through the house when her legs simply became weak and gave out. She fell forward landing on her knees and thinks she also hit her head. There was no loss of consciousness. She was able to crawl into her chair but could not walk or stand up because of leg weakness. States her arms were also weak at the time. She lives alone but was able to contact her son who arranged for ambulance transport to the ER. She was evaluated in the ER with multiple x-rays, CT scans, and blood work. X-ray showed no acute findings. Laboratory data was within normal limits except her urinalysis showed 1+ leukocytes. She currently is on antibiotics at home for UTI. At the time of my exam this morning, she feels like her arms and legs are getting back to normal although has not been out of bed. She otherwise has no complaints. <Shirley Dean - 09/05/21 22:43> Hospital Course Hospital Course: The patient was admitted for monitoring and further work-up. The etiology of her weakness and fall were not clear. Her work-up was unremarkable for anything except pyuria with a pending urine culture. All of her x-rays were negative. A PT evaluation was ordered and her home medications were resumed. By 09/05/2021, she was feeling much better. She was weak but could walk and wanted to go home. Her urine and blood cultures showed no growth. Dr. Sabillon discussed the need for ongoing therapy with the option of a intermediate facility versus home health, and the patient preferred home health. This was arranged. <Shirley Dean - 09/05/21 22:43> Objective Vital signs: Temp Pulse Resp BP Pulse Ox 97.9 F 87 16 146/62 H 95 09/04/21 08:00 09/04/21 08:00 09/04/21 08:00 09/04/21 08:00 09/04/21 08:00 <RidgeFidel Inocente - 09/14/21 22:38> Temp Pulse Resp BP Pulse Ox 97.9 F 87 16 146/62 H 95 09/04/21 08:00 09/04/21 08:00 09/04/21 08:00 09/04/21 08:00 09/04/21 08:00 <Shirley Dean - 09/05/21 22:43> Narrative: - Constitutional no acute distress Comments: getting in wheelchair to go home - *Routine Respiratory Exam Present: CTA bilaterally (A&P) - *Routine Cardiovascular Exam Present: RRR - *Routine Abdominal Exam Present: soft, normoactive bowel sounds. Absent: tenderness - *Routine Extremities Exam Absent: edema, calf tenderness - *Routine Neurological Exam Present: alert, oriented X3 <Shirley Dean - 09/05/21 22:43> Results Labs on day of discharge: Preliminary micro results at discharge 09/02/21 21:12 Blood Culture - Preliminary Blood NO GROWTH AFTER 48 HOURS 09/02/21 21:12 Blood Culture - Preliminary Blood NO GROWTH AFTER 48 HOURS <Shirley Dean - 09/05/21 22:43> DS: Diagnosis - Discharge Diagnosis (1) Muscle weakness Status: Acute (2) UTI (urinary tract infection) Status: Acute (3) Hypothyroidism Status: Acute (4) Fibromyalgia Status: Acute (5) Chronic back pain Status: Acute (6) Depression Status: Acute (7) Hypertension Status: Acute <Shirley Dean - 09/05/21 22:40> (1) Muscle weakness Status: Acute (2) UTI (urinary tract infection) Status: Acute (3) Hypothyroidism Status: Acute (4) Fibromyalgia Status: Acute (5) Chronic back pain Status: Acute (6) Depression Status: Acute (7) Hypertension Status: Acute <RidgeFidel Inocente - 09/14/21 22:38> Discharge Plan - Mo
== END 2021-09-04 10:05 | disposition home health service (06) ==
LOC: ER 21:54 → 2ND 09-03 04:04
PROVIDERS: Admitting Provider Family Medicine; Emergency Provider Emergency Medicine; PCP Family Medicine; Visit Provider Family Medicine
DX: R53.1 Weakness (principal); I10 Essential (primary) hypertension; N39.0 Urinary tract infection, site not specified; E03.9 Hypothyroidism, unspecified; Z79.899 Other long term (current) drug therapy; Z88.8 Allergy status to other drugs, medicaments and biological substances; K21.9 Gastro-esophageal reflux disease without esophagitis; E78.5 Hyperlipidemia, unspecified; Z20.822 Contact with and (suspected) exposure to COVID-19
CPT/HCPCS: G0378; 51702; 70450; 71045; 72125; 72128; 72131; 72170; 73562; 80048; 80053; 81001; 83605; 83735; 84443; 84484; 85025; 85651; 86140; 87040; 87086; 93005; 97162; 99285; C9803; U0003; U0005

== ENCOUNTER → 2022-01-30 15:03 | Outpatient (CLI) | payer MEDICARE, SELFPAY ==
[2022-01-30 17:27] LABS: Anion Gap 14.1 mEq/L (5-15); Blood Urea Nitrogen 19 mg/dl (7-17); Calcium 10.1 mg/dl (8.4-10.2); Carbon Dioxide 29 mmol/L (22.0-30.0); Chloride 100 mmol/L (98-107); Estimated Glomerular Filt Rate 43 ml/min (>60); GFR (African American) 52 ML/MIN (>60); Glucose 97 mg/dl (74-100); Potassium 5.1 mmoL/L (3.5-5.1); Sodium 138 mmol/L (136-145)
[2022-01-30 18:29] LABS: Vitamin B12 258 pg/mL (239-931)
[2022-01-30 18:33] LABS: Folate 9.13 ng/mL
== END ==
PROVIDERS: PCP Family Medicine; Visit Provider Nurse Practitioner Family
DX: R42 Dizziness and giddiness (principal)
CPT/HCPCS: 36415; 80048; 82607; 82746

== ENCOUNTER → 2022-02-05 13:28 | Outpatient (CLI) | payer MEDICARE, SELFPAY ==
--- NOTE | 2022-02-05 13:29 | MR_ITS ---
FINAL REPORT CLINICAL HISTORY: Eval posterior circ for occlusion, stenosis, aneur. DIZZINESS AND HEADACHE 15ML PROHANCE GIVEN. FINDINGS: Multiple projection images of the neck arterial vasculature were obtained without contrast. The raw data images were also reviewed. The right common carotid artery has an unremarkable appearance without evidence of stenosis or occlusion. The right internal carotid artery has an unremarkable appearance without evidence of stenosis or occlusion. The right external carotid artery is patent. The right vertebral artery is patent without evidence of stenosis. The left common carotid artery has an unremarkable appearance without evidence of stenosis or occlusion. The left internal carotid artery is patent without evidence of stenosis or occlusion. The left external carotid artery is patent. The left vertebral artery is patent without evidence of stenosis. IMPRESSION: Unremarkable MR angiogram of the neck without evidence of stenosis or occlusion. Reviewed, Interpreted and Dictated by Aryan Mckeon III, MD Transcribed by Rambo Tsang Authenticated and [facility]
--- NOTE | 2022-02-05 13:29 | MR_ITS ---
FINAL REPORT CLINICAL HISTORY: Weakness, Fall, Vertigo. DIZZINESS AND HEADACHE 15ML PROHANCE GIVEN. FINDINGS: Multiplanar MR imaging of the brain was performed without and with contrast. There is mild age-appropriate atrophy. Scattered foci of increased T2 signal are seen in the cerebral white matter that have a nonspecific appearance but likely represent mild chronic ischemic/gliotic changes. There is no evidence of intracranial hemorrhage or mass. No abnormal ventricular dilatation is identified. There is no evidence of shift of the midline structures. No abnormal extra-axial fluid collection is seen. No area of abnormal restricted diffusion is identified. The posterior fossa and brainstem have an unremarkable appearance. No abnormal contrast enhancement is seen. Normal major vessel vascular flow voids are seen. IMPRESSION: Mild atrophy and chronic ischemic/gliotic changes. No acute intracranial abnormality. Reviewed, Interpreted and Dictated by Aryan Mckeon III, MD Transcribed by Rambo Tsang Authenticated and [facility]
--- NOTE | 2022-02-05 13:29 | MR_ITS ---
FINAL REPORT CLINICAL HISTORY: Eval posterior circ for occlusion, stenosis, aneur. DIZZINESS AND HEADACHE 15ML PROHANCE GIVEN. FINDINGS: Multiple projection images of the brain arterial vasculature were obtained without contrast. The raw data images were also reviewed. The distal internal carotid, distal vertebral and basilar arteries have an unremarkable appearance without evidence of significant stenosis or occlusion. The proximal anterior, middle and posterior cerebral arteries have an unremarkable appearance. There is no evidence of significant stenosis or major branch occlusion. No aneurysm or vascular malformation is identified. IMPRESSION: Unremarkable MR angiogram of the head. Reviewed, Interpreted and Dictated by Aryan Mckeon III, MD Transcribed by Rambo Tsang Authenticated and [facility]
[2022-02-05 16:53] LABS: Anion Gap 12.3 mEq/L (5-15); Blood Urea Nitrogen 15 mg/dl (7-17); Calcium 9.6 mg/dl (8.4-10.2); Carbon Dioxide 28 mmol/L (22.0-30.0); Chloride 103 mmol/L (98-107); Estimated Glomerular Filt Rate 53 ml/min (>60); GFR (African American) 64 ML/MIN (>60); Glucose 96 mg/dl (74-100); Potassium 4.3 mmoL/L (3.5-5.1); Sodium 139 mmol/L (136-145)
[2022-02-05 18:00] LABS: Vitamin B12 245 pg/mL (239-931)
[2022-02-05 18:12] LABS: Folate 8.51 ng/mL
[2022-02-07 10:20] LABS: Homocyst(e)ine 13.6 umol/L (0.0-21.3)
[2022-02-11 03:05] LABS: Methylmalonic Acid 183 nmol/L (0-378)
== END ==
PROVIDERS: PCP Family Medicine; Visit Provider Nurse Practitioner Family
DX: H02.409 Unspecified ptosis of unspecified eyelid (principal); H91.93 Unspecified hearing loss, bilateral; R25.9 Unspecified abnormal involuntary movements; R42 Dizziness and giddiness; R53.1 Weakness; H93.13 Tinnitus, bilateral; E53.8 Deficiency of other specified B group vitamins; I10 Essential (primary) hypertension
CPT/HCPCS: 36415; 70544; 70547; 70553; 80048; 82131; 82607; 82746; 83090; A9576

== ENCOUNTER 2022-10-16 10:46 | Observation (INO) | payer MEDICARE, SELFPAY ==
[2022-10-16] VITALS (12 sets, daily range): BP systolic 131–178; BP diastolic 66–91; PULSE 66–89; RESP 14–19; TEMP 36.3–36.8; O2SAT 95–98; BMI 25.0; BMI 26.3
--- NOTE | 2022-10-16 | ECG_ITS ---
APPROVED REPORT Exam: Resting ECG HR:85 bpm ECG Measurements Heart Rate 85 AXES [place] 162 P 71 QRSd 73 QRS -16 QT 351 T 46 QTc 394 Conclusion SINUS RHYTHM LOW QRS VOLTAGE IN PRECORDIAL LEADS [QRS DEFLECTION < 1.0 mV IN CHEST LEADS] POSSIBLE ANTERIOR MYOCARDIAL INFARCTION , PROBABLY OLD [30 ms Q WAVE IN V3/V4, OR R < 0.2 mV IN V4] ABNORMAL ECG UNCONFIRMED REPORT Electronically signed by : Obed Carrington MD 10/18/2022 18:45:30
--- NOTE | 2022-10-16 10:41 | XR_ITS ---
FINAL REPORT CLINICAL HISTORY: AMS COMPARISON: 09/03/2019 FINDINGS: The heart size is mildly enlarged. The mediastinum is normal. The lungs are underinflated. There is no focal infiltrate or edema. There are no pleural effusions. There is no pneumothorax. There is a sideplate and screws securing healed fracture deformity of the proximal right humerus. IMPRESSION: No acute cardiopulmonary process Reviewed, Interpreted and Dictated by Jose Allred MD Transcribed by Kamille Purvis Authenticated and [facility]
--- NOTE | 2022-10-16 10:48 | ECG_ITS ---
APPROVED REPORT Exam: Resting ECG HR:83 bpm ECG Measurements Heart Rate 83 AXES [place] 157 P 49 QRSd 69 QRS -22 QT 347 T 40 QTc 387 Conclusion SINUS RHYTHM LOW QRS VOLTAGE IN PRECORDIAL LEADS [QRS DEFLECTION < 1.0 mV IN CHEST LEADS] ABNORMAL ECG UNCONFIRMED REPORT Electronically signed by : Obed Carrington MD 10/18/2022 18:47:12
--- NOTE | 2022-10-16 10:56 | CT_ITS ---
PROCEDURE INFORMATION: Exam: CT Head Without Contrast Exam date and time: 10/16/2022 1:06 PM Age: 82 years old Clinical indication: Altered mental status/memory loss; Confusion or disorientation; Patient HX: AMS, lethargy; Additional info: Episode of AMS TECHNIQUE: Imaging protocol: Computed tomography of the head without contrast. Total images: 267 Radiation optimization: All CT scans at this facility use at least one of these dose optimization techniques: automated exposure control; mA and/or kV adjustment per patient size (includes targeted exams where dose is matched to clinical indication); or iterative reconstruction. REPORTING DATA: Count of CT and Cardiac NM exams in prior 12 months: This patient has received 0 known CTs and 0 known cardiac nuclear medicine studies in the 12 months prior to the current study. COMPARISON: MR HEAD/BRAIN WO/W CON 02/05/2022 1:46 PM FINDINGS: Brain: Area of low attenuation noted within the anterior aspect of the left temporal lobe. 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 Age-related atrophy and chronic white matter ischemic changes, with no evidence of an acute intracranial abnormality. Low attenuation noted within the left basal ganglia consistent with chronic area of infarction. No hemorrhage, mass effect or midline shift. Cerebral ventricles: No ventriculomegaly. Paranasal sinuses: Postoperative changes of the right maxillary sinus. Mastoid air cells: Visualized mastoid air cells are well aerated. Orbital cavities: Postoperative changes of both eyes. Bones/joints: No acute fracture. Soft tissues: No acute changes IMPRESSION: 1. Area of low attenuation noted within the anterior aspect of the left temporal lobe. 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 2. Age-related atrophy and chronic white matter ischemic changes, with no evidence of an acute intracranial abnormality. 3. No hemorrhage, mass effect or midline shift.
[2022-10-16 10:59] LABS: POC Glucose,Bedside 117 (70-110)
[2022-10-16 11:17] LABS: Microscopic, Urine URINE MICROSCOPIC (MICROSCOPIC)
--- NOTE | 2022-10-16 11:18 | PC.NURSE ---
attempted multiple IV with no success at this time. HS attempting US IV
[2022-10-16 11:20] LABS: Appearance,Urine CLEAR (Clear); Bilirubin,Urine Negative (Negative); Blood, Urine Negative (Negative); Color,Urine YELLOW (Yellow); Glucose,Urine (UA) Negative (Negative); Ketones,Urine Negative (Negative); Leukocyte Esterase,Urine Negative (Negative); Nitrate,Urine Negative (Negative); PH,Urine 6.5 (5.0-8.5); Protein,Urine Negative (Negative); Specific Gravity, Urine 1.015 (1.005-1.030)
[2022-10-16 11:34] LABS: Bacteria,Urine Trace /lpf
--- NOTE | 2022-10-16 13:00 | PC.NURSE ---
Assumed patient care
--- NOTE | 2022-10-16 13:22 | PC.NURSE ---
back from CT
--- NOTE | 2022-10-16 14:50 | PC.NURSE ---
spoke with lab
--- NOTE | 2022-10-16 15:00 | PC.NURSE ---
Rounded on patient call ernandez within reach.
[2022-10-16 16:12] LABS: Alanine Aminotransferase 26 U/L (12-78); Albumin Level 3.4 g/dl (3.5-5.0); Albumin/Globulin Ratio 1.2 (1.1-1.8); Alkaline Phosphatase 147 U/L (38-126); Anion Gap 10.4 mEq/L (5-15); Aspartate Amino Transferase 35 U/L (14-36); Bilirubin,Total 0.3 mg/dl (0.2-1.3); Blood Urea Nitrogen 21 mg/dl (7-17); Calcium 8.9 mg/dl (8.4-10.2); Carbon Dioxide 31 mmol/L (22.0-30.0); Chloride 103 mmol/L (98-107); Creatinine Clearance Estimated 41 mL/min (50-200); Estimated Glomerular Filt Rate 47 ml/min (>60); Free T4 (Free Thyroxine) 1.05 ng/dl (0.78-2.19); GFR (African American) 57 ML/MIN (>60); Globulin 2.9 g/dL (1.3-3.2); Glucose 120 mg/dl (74-100); Magnesium 1.9 mg/dl (1.6-2.3); Phosphorous 3.7 mg/dl (2.5-4.5); Potassium 4.4 mmoL/L (3.5-5.1); Sodium 140 mmol/L (136-145); Thyroid Stimulating Hormone 3.38 uIU/mL (0.465-4.68); Total Protein,Serum 6.3 g/dl (6.3-8.2)
[2022-10-16 16:13] LABS: Troponin I 0.04 ng/ml (0.00-0.034)
[2022-10-16 16:18] LABS: Troponin I < 0.01 ng/ml (0.00-0.034)
--- NOTE | 2022-10-16 16:36 | ECG_ITS ---
APPROVED REPORT Exam: Resting ECG HR:88 bpm ECG Measurements Heart Rate 88 AXES [place] 165 P 63 QRSd 69 QRS -19 QT 339 T 38 QTc 384 Conclusion SINUS RHYTHM LOW QRS VOLTAGE IN PRECORDIAL LEADS [QRS DEFLECTION < 1.0 mV IN CHEST LEADS] POSSIBLE ANTERIOR MYOCARDIAL INFARCTION , PROBABLY OLD [30 ms Q WAVE IN V3/V4, OR R < 0.2 mV IN V4] INFERIOR MYOCARDIAL INFARCTION , PROBABLY OLD [40+ ms Q WAVE AND/OR ST/T ABNORMALITY IN II/aVF] ABNORMAL ECG UNCONFIRMED REPORT Electronically signed by : Obed Carrington MD 10/18/2022 18:45:53
--- NOTE | 2022-10-16 16:38 | PC.NURSE ---
Addendum entered by Sarah Herring, EMT 10/16/22 16:39: at 1353 Original Note: Dr Lombardo speaking with Radiologist
--- NOTE | 2022-10-16 16:51 | EXP.HP ---
[facility] Disclaimer: The information contained in this section may have been updated after the patient was seen, as this information can be updated by other users. Family History Other Cancer Coronary artery disease Diabetes Hypertension Social History Smoking Status: Never smoker alcohol intake: never current occupational status: retired Travel in the last 8 weeks: None household members: none housing: house caffeine: Yes Meds Home Medications and Allergies Home Medications Medication Instructions Recorded Confirmed Type beclomethasone dipropionate 40 1 puff inhalation BID Asthma 01/05/21 07/31/22 History mcg/actuation HFA breath activated aerosol lisinopril 20 mg tablet 20 mg PO DAILY High blood pressure 01/05/21 07/31/22 History montelukast 10 mg tablet 10 mg PO PM Allergy symptoms 01/05/21 07/31/22 History omeprazole 20 mg capsule,delayed 20 mg PO DAILY acid reflux 09/02/21 07/31/22 History release bimatoprost 0.01 % eye drops 1 drp ophthalmic (eye) HS 09/03/21 07/31/22 History intraocular pressure levothyroxine 25 mcg tablet 25 mcg PO DAILY hypothyroidism 09/03/21 07/31/22 History pravastatin 80 mg tablet 80 mg PO HS Cholesterol 09/03/21 07/31/22 History ropinirole 0.25 mg tablet 0.25 mg PO HS restless leg syndrome 09/03/21 07/31/22 History albuterol sulfate 90 mcg/actuation 2 puff inhalation Q6H PRN 01/30/22 07/31/22 History aerosol inhaler (ProAir HFA) beclomethasone dipropionate 80 1 inh inhalation Q12H 01/30/22 07/31/22 History mcg/actuation HFA breath activated aerosol (Qvar RediHaler) estradiol 0.01% (0.1 mg/gram) 1 g vaginal PRN 01/30/22 07/31/22 History vaginal cream linaclotide 72 mcg capsule 72 mcg PO DAILY 01/30/22 07/31/22 History (Linzess) meclizine 12.5 mg tablet 12.5 mg PO PRN 01/30/22 07/31/22 History multivitamin 1 tab PO DAILY 01/30/22 07/31/22 History triamcinolone acetonide 0.025 % 1 applic topical DAILY 01/30/22 07/31/22 History topical cream vitamins A,C,I-famn-vttwll 2,148 2 tab PO BID 01/30/22 07/31/22 History mcg-113 mg-45 mg-17.4 mg tablet (PreserVision AREDS) amlodipine 5 mg tablet 5 mg PO QAM Hypertension #90 tabs 09/27/22 Rx aspirin 81 mg chewable tablet 81 mg PO DAILY #90 tabs 09/27/22 Rx atorvastatin 40 mg tablet 40 mg PO QHS #90 tabs 09/27/22 Rx baclofen 10 mg tablet 10 mg PO QHS muscle spasms #90 tabs 09/27/22 Rx brimonidine 0.1 % eye drops 1 drp Eye-Both BID #15 mL 09/27/22 Rx (Alphagan P) duloxetine 30 mg capsule,delayed 30 mg PO DAILY Depression #90 caps 09/27/22 Rx release duloxetine 60 mg capsule,delayed 60 mg PO DAILY Depression #90 caps 09/27/22 Rx release hydrocodone 7.5 mg-acetaminophen 1 tab PO TID PRN pain #90 tabs 09/27/22 Rx 325 mg tablet zolpidem 5 mg tablet 5 mg PO QHS PRN Insomnia #30 tabs 09/27/22 Rx pregabalin 100 mg capsule (Lyrica) 100 mg PO TID #90 caps 09/29/22 Rx New Prescriptions to Start Prescriptions: Allergies Allergy/AdvReac Type Severity Reaction Status Date / Time Sulfa (Sulfonamide Allergy Mild Verified 07/31/22 15:18 Antibiotics) [SULFA (SULFONAMIDE ANTIBIOTICS)] Exam Data for Last 24 hours Vital signs and Labs for Last 24 Hours: Temp Pulse Resp BP Pulse Ox O2 Del Method 97.4 F L 87 19 131/66 97 Room Air 10/16/22 10:55 10/16/22 11:34 10/16/22 10:55 10/16/22 11:34 10/16/22 11:34 10/16/22 11:34 Laboratory Results - last 24 hr 10/16/22 10:52: POC Glucose 117 H 10/16/22 11:08: Urine Color Yellow, Urine Appearance Clear, Urine pH 6.5, Ur Specific [place] 1.015, Urine Protein Negative, Urine Glucose (UA) Negative, Urine Ketones Negative, Urine Blood Negative, Urine Nitrate Negative, Urine Bilirubin Negative, Urine Urobilinogen 1.0, Ur Leukocyte Esterase Negative, Urine RBC None, Urine WBC None, Ur Squamous Epith C
[2022-10-16 17:39] LABS: Hemoglobin 13.1 g/dL (12.2-16.2); Mean Corpuscular HGB Conc 33.7 g/dL (31.8-35.4); Mean Corpuscular Hemoglobin 30.7 pg (27.0-31.2); Mean Corpuscular Volume 91.2 fl (81-99); Mean Platelet Volume 8.7 fl (7.4-10.4); Platelet Count 107 K/mm3 (142-424); Red Blood Count 4.27 M/mm3 (4.20-5.40); Red Cell Distribution Width 16.7 % (11.5-17.5); White Blood Count 8.7 K/mm3 (4.8-10.8)
[2022-10-16 17:40] LABS: Basophils % 0.5 % (0.1-2.0); Eosinophils # 0.2 K/mm3 (0.0-0.4); Eosinophils % 2.7 % (0.1-12.0); Lymphocytes # 2.1 K/mm3 (0.7-4.5); Lymphocytes % 24.3 % (10-50); Monocytes # 0.6 K/mm3 (0.1-1.0); Neutrophils # 5.6 K/mm3 (1.8-7.8)
--- NOTE | 2022-10-16 18:09 | HMH.EDGENADL ---
Discharge Plan Disposition Patient Disposition: Admitted Chief Complaint: Neuro Symptoms/Deficit Clinical Impressions Clinical Impression: Weakness, Elevated troponin Discharge ED Provider: Benjamin Lombardo General Adult HPI <Benjamin Lombardo MD - Last Filed: 10/16/22 18:26> General Chief complaint: Neuro Symptoms/Deficit Stated complaint: weakness Time Seen by Provider: 10/16/22 10:56 Mode of Arrival: EMS Source of Information: EMS Limitations: Physical Limitations Description of Symptoms (Recalled from ER Triage Doc. by RN): 82 yo F presents to ED via EMS. pt is resident at [facility]. EMS staff reports last known well time approx 8 am this morning. nursing staff state they went to get pts medications and come back to pts room and pt was slumped over in her wheelchair and was unresponsive. upaon arrival to ED pt is alert and able to answer questions. pt does have baseline difficulties talking. and does have residual deficits on right side from previous stroke History of Present Illness HPI narrative: Patient presents for evaluation of episode of unresponsiveness which occurred earlier this morning, resolved spontaneously, history is limited as patient is minimally verbal at baseline however additional history was obtained by son who presents later at bedside. Patient is a shelter patient with last known well approximately 8:00 this morning, patient was in her normal state of health at that time, was rounded on later that morning and was found reportedly unresponsive in wheelchair. Symptoms of since resolved spontaneously. It is unclear whether patient recollects this incident but denies any pain at this time or pain during that time. Present at bedside patient has had similar episodes before attributed to her stroke or fibromyalgia. No new motor weakness or sensory deficits. Roard-qk-imrd glucose at that time was within normal limits. No reported head trauma. No changes in medications or new medications. No associated fevers or chills or nausea or vomiting. No associated fevers or chills or nausea or vomiting. No visual complaints at this time. No reported blood thinner usage. Of note, this history was initially obtained during downtime of electronic medical record so I was unable to verify patient's medical history with those on record. Related Data Home Medications Medication Instructions Recorded Confirmed beclomethasone dipropionate 40 1 puff inhalation BID Asthma 01/05/21 07/31/22 mcg/actuation HFA breath activated aerosol lisinopril 20 mg tablet 20 mg PO DAILY High blood pressure 01/05/21 07/31/22 montelukast 10 mg tablet 10 mg PO PM Allergy symptoms 01/05/21 07/31/22 omeprazole 20 mg capsule,delayed 20 mg PO DAILY acid reflux 09/02/21 07/31/22 release bimatoprost 0.01 % eye drops 1 drp ophthalmic (eye) HS 09/03/21 07/31/22 intraocular pressure levothyroxine 25 mcg tablet 25 mcg PO DAILY hypothyroidism 09/03/21 07/31/22 pravastatin 80 mg tablet 80 mg PO HS Cholesterol 09/03/21 07/31/22 ropinirole 0.25 mg tablet 0.25 mg PO HS restless leg syndrome 09/03/21 07/31/22 albuterol sulfate 90 mcg/actuation 2 puff inhalation Q6H PRN 01/30/22 07/31/22 aerosol inhaler (ProAir HFA) beclomethasone dipropionate 80 1 inh inhalation Q12H 01/30/22 07/31/22 mcg/actuation HFA breath activated aerosol (Qvar RediHaler) estradiol 0.01% (0.1 mg/gram) 1 g vaginal PRN 01/30/22 07/31/22 vaginal cream linaclotide 72 mcg capsule 72 mcg PO DAILY 01/30/22 07/31/22 (Linzess) meclizine 12.5 mg tablet 12.5 mg PO PRN 01/30/22 07/31/22 multivitamin 1 tab PO DAILY 01/30/22 07/31/22 triamcinolone acetonide 0.025 % 1 applic topical DAILY 01/30/22 07/31/22 topical cream vitamins A,C,G-bhkb-pvuyrk 2,148 2 tab PO BID 01/30/22 07/31/22 mcg-113 mg-45 mg-17.4 mg tablet (PreserVision AREDS) Previous Rx's Medication Instructions Recorded amlodipine 5 mg tablet 5 mg PO QAM Hypertension #90 tabs
--- NOTE | 2022-10-16 18:30 | PC.NURSE ---
ROUNDED ON PATIENT; CALL BEAL WITHIN REACH
[2022-10-16 19:41] LABS: Troponin I < 0.01 ng/ml (0.00-0.034)
--- NOTE | 2022-10-16 19:41 | PC.NURSE ---
pt arrived to floor at this time
--- NOTE | 2022-10-16 20:33 | EXP.HP ---
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 Pt is resident at [facility]. Because of history of dementia, history is very limited. Data was obtained by EMS staff who reported last known well time approx 8 am this morning. Nursing staff stated they went to get pts medications and come back to pts room and pt was slumped over in her wheelchair and was unresponsive. Upon arrival to ED pt is alert and able to answer questions. pt does have baseline difficulties talking. and does have residual deficits on right side from previous stroke. Admitted for further work up. [facility] Disclaimer: The information contained in this section may have been updated after the patient was seen, as this information can be updated by other users. Medical History (Updated 10/16/22 @ 21:09 by Neal Gonzalez APRN) Anxiety Aphasia Cerebral infarction due to thrombosis of left middle cerebral artery Dysphasia Polyneuropathy Family History Other Cancer Coronary artery disease Diabetes Hypertension Social History (Updated 10/16/22 @ 20:41 by Lavonne Maguire RN) Smoking Status: Never smoker alcohol intake: never current occupational status: retired Travel in the last 8 weeks: None household members: none housing: house caffeine: Yes Review of Systems Review of Systems Review of systems:: unable to obtain Meds Home Medications and Allergies Home Medications Medication Instructions Recorded Confirmed Type lisinopril 20 mg tablet 20 mg PO DAILY High blood pressure 01/05/21 10/16/22 History montelukast 10 mg tablet 10 mg PO HS Allergy symptoms 01/05/21 10/16/22 History levothyroxine 25 mcg tablet 25 mcg PO DAILY hypothyroidism 09/03/21 10/16/22 History pravastatin 80 mg tablet 20 mg PO HS Cholesterol 09/03/21 10/16/22 History ropinirole 0.25 mg tablet 0.25 mg PO HS restless leg syndrome 09/03/21 10/16/22 History albuterol sulfate 90 mcg/actuation 2 puff inhalation Q6H PRN Asthma 01/30/22 10/16/22 History aerosol inhaler (ProAir HFA) multivitamin 1 tab PO DAILY Supplement 01/30/22 10/16/22 History amlodipine 5 mg tablet 5 mg PO QAM Hypertension #90 tabs 09/27/22 10/16/22 Rx baclofen 10 mg tablet 10 mg PO QHS muscle spasms #90 tabs 09/27/22 10/16/22 Rx duloxetine 30 mg capsule,delayed 30 mg PO DAILY Depression #90 caps 09/27/22 10/16/22 Rx release aspirin 81 mg chewable tablet 81 mg PO DAILY heat health 10/16/22 10/16/22 History atorvastatin 40 mg tablet 40 mg PO QHS Cholesterol 10/16/22 10/16/22 History brimonidine 0.1 % eye drops 1 drp Eye-Both BID Glaucoma 10/16/22 10/16/22 History (Alphagan P) duloxetine 60 mg capsule,delayed 60 mg PO HS Depression 10/16/22 10/16/22 History release enoxaparin 40 mg/0.4 mL 40 mg SQ DAILY Blood Thinner 10/16/22 10/16/22 History subcutaneous syringe kit pantoprazole 40 mg tablet,delayed 40 mg PO DAILY GERD 10/16/22 10/16/22 History release pregabalin 100 mg capsule (Lyrica) 100 mg PO TID nerve bay 10/16/22 10/16/22 History New Prescriptions to Start Prescriptions: Allergies Allergy/AdvReac Type Severity Reaction Status Date / Time Sulfa (Sulfonamide Allergy Mild Verified 07/31/22 15:18 Antibiotics) [SULFA (SULFONAMIDE ANTIBIOTICS)] Exam Data for Last 24 hours Vital signs and Labs for Last 24 Hours: Temp Pulse Resp BP Pulse Ox O2 Del Method 97.4 F L 79 16 163/77 H 97 Room Air 10/16/22 19:15 10/16/22 19:15 10/16/22 19:15 10/16/22 19:15 10/16/22 18:00 10/16/22 19:15 Laboratory Results - last 24 hr 10/16/22 10:52: POC Glucose 117 H 0
--- NOTE | 2022-10-16 20:52 | PC.NURSE ---
Pt son states pt is a pureed diet with honey thick liquids at half-way.
[2022-10-17] VITALS: BP 150/66; PULSE 80; PULSE 88; RESP 17; TEMP 36.7; O2SAT 94
[2022-10-17 04:00] VITALS: BP 148/78; PULSE 80; RESP 18; TEMP 36.7; O2SAT 96; BMI 26.3
--- NOTE | 2022-10-17 04:30 | PC.NURSE ---
Patient slept well this shift. No complaints voiced. Patient remains on RA and NSR on tele. Bed alarm on and call ernandez and personal items in reach. POC ongoing.
[2022-10-17 05:00] VITALS: PULSE 80
[2022-10-17 07:17] LABS: Basophils % 0.4 % (0.1-2.0); Eosinophils # 0.4 K/mm3 (0.0-0.4); Eosinophils % 5.4 % (0.1-12.0); Hematocrit 39.8 % (37.0-47.0); Hemoglobin 12.9 g/dL (12.2-16.2); Lymphocytes # 2.2 K/mm3 (0.7-4.5); Lymphocytes % 33.5 % (10-50); Mean Corpuscular HGB Conc 32.4 g/dL (31.8-35.4); Mean Corpuscular Hemoglobin 29.4 pg (27.0-31.2); Mean Platelet Volume 8.8 fl (7.4-10.4); Monocytes # 0.5 K/mm3 (0.1-1.0); Monocytes % 7.5 % (1.7-9.3); Neutrophils # 3.5 K/mm3 (1.8-7.8); Neutrophils % 53.1 % (37.0-80.0); Platelet Count 226 K/mm3 (142-424); Red Blood Count 4.38 M/mm3 (4.20-5.40); Red Cell Distribution Width 16.7 % (11.5-17.5); White Blood Count 6.6 K/mm3 (4.8-10.8)
[2022-10-17 07:20] LABS: Blood Urea Nitrogen 19 mg/dl (7-17); Calcium 9.2 mg/dl (8.4-10.2); Carbon Dioxide 31 mmol/L (22.0-30.0); Chloride 104 mmol/L (98-107); Creatinine Clearance Estimated 47 mL/min (50-200); Estimated Glomerular Filt Rate 53 ml/min (>60); GFR (African American) 64 ML/MIN (>60); Glucose 98 mg/dl (74-100); Sodium 142 mmol/L (136-145)
--- NOTE | 2022-10-17 07:50 | HMH.PHAINT1 ---
Pharmacy Intervention Comments: Medication history complete, medications verified with list from facility - Kenia Castellon PharmD Candidate 2023
[2022-10-17 08:00] VITALS: BP 153/73; PULSE 90; PULSE 94; RESP 16; TEMP 36.7; O2SAT 95
--- NOTE | 2022-10-17 08:01 | SW/DCPLANNER ---
Addendum entered by Carmen Emanuel 10/17/22 13:21: I have updated Delia garg/ ROMAIN that patient will return today. Addendum entered by Carmen Emanuel 10/17/22 08:27: Updated patient information has been faxed to Delia garg/ ROMAIN. Original Note: This patient currently resides at [facility]. Delia HOYOS confirmed patient is SNF level of care. I will continue to follow up with patient, [facility] and [facility] until patient is medically stable for discharge. Discharge date is unknown at this time.
--- NOTE | 2022-10-17 08:16 | CA_ITS ---
APPROVED REPORT EXAM: Limited 2D Echocardiogram Spacecraft Systems Engineer: Kathy Pereira RVT Ht: 5 ft 4 in Wt: 158lbs BSA: 1.77 BP: 163/77 mmHg Indications: ELEVATED TROP,HTN,HLD,GERD VERY TDS-VERY LIMITED WINDOWS, NO APICAL WINDOWS,SCANNED BY 2 TECHS 2D Dimensions IVSd 0.78 cm F: 0.6-1.0 LVEF (Visual) 77.70 % PWd 0.61 cm F: 0.6 - 1.0 LVDd 3.48 cm F: 3.9 - 5.3 LVDs 1.90 cm F: 2.2 - 3.5 LVOT 2.08 cm (M/F) 1.5-2.5 M-Mode Dimensions LA Diam 2.72 cm (1.9-4.0) Ao Diam 3.01 cm (2.0-3.7) Pulmonary Valve PV Peak Velocity 114.00 (50-150 cm/s) Left Ventricle The left ventricle is normal size. The left ventricular systolic function is normal. The left ventricular ejection fraction is within the normal range. There is increased LV wall thickness. LV garvin motion is difficult to estimate due to technically difficult study, but grossly there is normal LV segmental wall motion. Diastolic function is not evaluated in this study. LVEF is 60%. Right Ventricle The right ventricle is difficult to visualize, but is grossly normal in size. The right ventricular systolic function is grossly normal. There is increased RV wall thickness. Atria The left atrium size is normal. The right atrium size is normal. Aortic Valve The aortic valve opens well. There is no aortic valvular stenosis. No aortic regurgitation is present. Mitral Valve The mitral valve is normal in structure. No evidence of mitral valve stenosis. There is no mitral valve regurgitation noted. Tricuspid Valve The tricuspid valve leaflets are thin and pliable. Trace tricuspid regurgitation.There is insufficient TR jet to estimate RVSP. Pulmonic Valve The pulmonary valve is normal in structure. Trace pulmonic regurgitation. Great Vessels The aortic root is normal in size. The ascending aorta is not well visualized. The IVC is not well visualized. Pericardium There is no pericardial effusion. Other Information Study Quality: Technically Difficult Conclusion This was a technically difficult study due to poor accoustic windows. Normal biventricular systolic function. No significant valvular disease. Electronically signed by : Kaila Sims, 10/17/2022 13:15:41
--- NOTE | 2022-10-17 08:31 | EXP.CARD.CON ---
History of Present Illness History of Present Illness Consult date: 10/17/22 Requesting physician: Modesto Magaña Chief complaint: elevated troponin, transient unresponsiveness Additional Medical History:: 1. History of CVA 2. History of dementia 3. intermediate resident 4. Hypertension 5. Hyperlipidemia 6. History of GERD 7. Hypothyroidism 8. History of asthma 9. Chronic back pain History of present illness: Patient unable to provide history. Information obtained from the chart. 82-year-old white female resident of [facility] reportedly found unresponsive in wheelchair. Patient was jqedj-ea-[id number] glucose noted to be unremarkable. Patient was transferred to the emergency department for further evaluation please see those notes. Work-up in the ER essentially unremarkable including MRI of the head and neck arteries with notation of patient returning to baseline status prior to arrival in the ER. No complaints of chest pain. Single elevated troponin was noted on the second draw with third troponin being back to normal. Patient was admitted for observation and evaluation. Cardiology consulted for evaluation. EKGs shows sinus rhythm with low voltage, poor R wave progression anteriorly and nonspecific ST-T abnormalities with questionable evidence of inferior infarct unchanged compared to 2021 tracing. Patient knows she is in the hospital but thinks it is 1976 and is unable to answer who is the president [facility] Disclaimer: The information contained in this section may have been updated after the patient was seen, as this information can be updated by other users. Medical History (Updated 10/17/22 @ 08:39 by JUANPABLO Metzger) Anxiety Aphasia Cerebral infarction due to thrombosis of left middle cerebral artery Dysphasia Polyneuropathy Family History Other Cancer Coronary artery disease Diabetes Hypertension Social History (Updated 10/16/22 @ 20:41 by Lavonne Maguire RN) Smoking Status: Never smoker alcohol intake: never current occupational status: retired Travel in the last 8 weeks: None household members: none housing: house caffeine: Yes Review of Systems Review of Systems Review of systems:: unable to obtain Exam Data for Last 24 hours Vital signs and Labs for Last 24 Hours: Temp Pulse Resp BP Pulse Ox O2 Del Method 98.1 F 94 H 16 153/73 H 95 Room Air 10/17/22 08:00 10/17/22 08:00 10/17/22 08:00 10/17/22 08:00 10/17/22 08:00 10/17/22 08:00 Laboratory Results - last 24 hr 10/16/22 10:52: POC Glucose 117 H 10/16/22 10:56: WBC 8.7, RBC 4.27, Hgb 13.1, Hct 39.0, MCV 91.2, MCH 30.7, MCHC 33.7, RDW 16.7, Plt Count 107 L, MPV 8.7, Neut % (Auto) 64.0, Lymph % (Auto) 24.3, [place] % (Auto) 7.0, Eos % (Auto) 2.7, Baso % (Auto) 0.5, Neut # (Auto) 5.6, Lymph # (Auto) 2.1, [place] # (Auto) 0.6, Eos # (Auto) 0.2, Baso # (Auto) 0.0 10/16/22 11:08: Urine Color Yellow, Urine Appearance Clear, Urine pH 6.5, Ur Specific [place] 1.015, Urine Protein Negative, Urine Glucose (UA) Negative, Urine Ketones Negative, Urine Blood Negative, Urine Nitrate Negative, Urine Bilirubin Negative, Urine Urobilinogen 1.0, Ur Leukocyte Esterase Negative, Urine RBC None, Urine WBC None, Ur Squamous Epith Cells 3-5, Urine Bacteria Trace 10/16/22 12:00: Sodium 140, Potassium 4.4, Chloride 103, Carbon Dioxide 31 H, Anion Gap 10.4, BUN 21 H, Creatinine 1.10 H, Estimated Creat Clear 41, Estimated GFR 47 L, Est GFR ( Amer) 57 L, Glucose 120 H, Calcium 8.9, Phosphorus 3.7, Magnesium 1.9, Total Bilirubin 0.3, AST 35, ALT 26, Alkaline Phosphatase 147 H, Troponin I < 0.01, Total Protein 6.3, Albumin 3.4 L, Globulin 2.9, Albumin/Globulin Ratio 1.2, TSH 3.38, Free T4 1.05 10/16/22 14:30: Troponin I 0.04 H 10/16/22 18:50: Troponin I < 0.01 10/17/22 06:37: WBC 6.6, RBC 4.38, Hgb 12.9, Hct 39.8, MCV 91.0, MCH 29.4, MCHC 32.4, RDW 16.7, Plt Count 226 D, MPV 8.8,
[2022-10-17 08:45] LABS: VBG Base Excess 1.1 mmol/L (-2.4-2.3); VBG Oxygen Saturation 94.6 % (50-70); VBG PH 7.39 mmol/L (7.31-7.41); VBG Total CO2 27.4 mmol/L (23-27)
--- NOTE | 2022-10-17 09:44 | HMH.SLDYSPHA ---
Speech & Language Evaluation Speech/Language Dysphagia Evaluation Start: 10/17/22 09:32 Freq: ONCE Status: Active Protocol: Document 10/17/22 09:32 IMMANUEL (Rec: 10/17/22 09:44 BALDEMAROCTAVIABRITTANI [id number]) Dysphagia Assess/Goals/Plan Assessment Date of Evaluation: 10/17/22 Evaluation Type Initial Certification Assessment/Problems dysphagia hx per MD order. Does Patient Qualify for Service No Qualify/Failure Comment Based on results of clinical bedside swallow evaluation, Ms Tom Rizvi is tolerate her diet well and oropharyngeal phase of the swallow is functional, swallowing and mastication are WFL given age. Skilled speech therapy services are not warranted at this time. Recommendations PHYSICIAN CERTIFICATION: The specified therapy services are required, authorized, and reviewed every 30 days. Diet Recommendations Pureed Liquid Type Recommendations Honey Consistency SL Swallow Guidelines Standard Aspiration Prec. Dysphagia Swallow Precautions/Strategies Sitting Upright (90 deg),Small Bites and Sips,Alternate Liquids/Solids Plan Pt/Guardian verbally ack understanding Yes of dx/prognosis/goals G -code Required No Education Instructions provided Discussed CSE results and continuing current diet with nursing,pt, and care management all of which expressed understanding. 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 Per ER report, nursing staff at [facility] stated they went to get pts medications and come back to pts room and pt was slumped over in her wheelchair and was unresponsive. At baseline, pt has facial droop,
[2022-10-17 10:22] VITALS: BMI 26.3
--- NOTE | 2022-10-17 10:59 | HMH.PTEV ---
Physical Therapy Evaluation Rehab PT IP Evaluation Start: 10/16/22 21:23 Freq: ONCE Status: Active Protocol: Document 10/17/22 10:50 DEREK (Rec: 10/17/22 10:59 PHOKARTHIKEYAN [id number]) Subjective/History History History 82 yowf adm to [facility] after being found unresponsive at the SNF where she resides. 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 She remains very confused at this time and unknown baseline mental status. Subjective Subjective Pt appears alert, but is unable to answer any history questions at this time. Rehab PT IP Eval Objective Appearance Patient Behavior Confused Difficulty following instructions moderate Speech Pattern Clear Ambulation Patient Able to Ambulate No Balance Ability to Arise Unable Sitting Balance Leans or slides in chair Dynamic Sitting Balance Ability Poor Transfers Bed Transfer Ability Maximum x 2 (75% assist) MMT RLE PT MMT ABN Abnormal MMT Grade flaccid RUE PT MMT ABN Abnormal MMT Grade flaccid Rehab PT IP prob,goals,plan Problems Date of Evaluation: 10/17/22 PT IP Problems Bed Mobility,Transfers Rehab Potential Rehab Potential Fair Plan PT Intervention Plan Bed Mobility,Transfers, Therapeutic Exercise PT Plan Frequency Daily Duration LOS Discharge Goals Bed Transfer Ability Maximum x 1 (75% assist) Sit to Stand Chair Transfer Ability Maximum x 2 (75% assist) Discharge Plan PT Discharge Plan Pt is currently most appropriate to return to SNF for rehab placement once medically stable for d/c. G -code Required No Eval Complexity Eval Charge Codes 66755 - High Complexity PHYSICIAN CERTIFICATION: I certify the specified therapy services for Dang Rizvi are required, authorized, and reviewed every 30 days.
[2022-10-17 11:29] VITALS: BP 120/58; PULSE 99; RESP 17; TEMP 36.8; O2SAT 95
[2022-10-17 12:00] VITALS: PULSE 100
--- NOTE | 2022-10-17 13:09 | EXP.DC.SUM ---
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 Pt is resident at [facility]. Because of history of dementia, history is very limited. Data was obtained by EMS staff who reported last known well time approx 8 am this morning. Nursing staff stated they went to get pts medications and come back to pts room and pt was slumped over in her wheelchair and was unresponsive. Upon arrival to ED pt is alert and able to answer questions. pt does have baseline difficulties talking. and does have residual deficits on right side from previous stroke. Admitted for further work up. Hospital Course Hospital Course Hospital Course: The patient's troponin level trended <0.01 - 0.04 - <0.01. EKG did not reveal any significant acute change when compared to EKG from 2021. Cardiology was consulted and decreased the dose of the patient's lisinopril and started metoprolol. A limited echocardiogram was obtained, which revealed normal biventricular systolic function and no significant valvular disease; the study was technically difficult due to poor acoustic windows. The patient's transient unresponsiveness may be related to her severe dementia. On day of discharge son at bedside stated that the patient's mental status is at baseline and states that she often cannot recognize family members. The patient will discharge back to [facility]. Exam Data for Last 24 hours Vital signs and Labs for Last 24 Hours: Temp Pulse Resp BP Pulse Ox O2 Del Method 98.2 F 99 H 17 120/58 L 95 Room Air 10/17/22 11:29 10/17/22 11:29 10/17/22 11:29 10/17/22 11:29 10/17/22 11:29 10/17/22 11:29 Laboratory Results - last 24 hr 10/16/22 10:56: WBC 8.7, RBC 4.27, Hgb 13.1, Hct 39.0, MCV 91.2, MCH 30.7, MCHC 33.7, RDW 16.7, Plt Count 107 L, MPV 8.7, Neut % (Auto) 64.0, Lymph % (Auto) 24.3, [place] % (Auto) 7.0, Eos % (Auto) 2.7, Baso % (Auto) 0.5, Neut # (Auto) 5.6, Lymph # (Auto) 2.1, [place] # (Auto) 0.6, Eos # (Auto) 0.2, Baso # (Auto) 0.0 10/16/22 12:00: Sodium 140, Potassium 4.4, Chloride 103, Carbon Dioxide 31 H, Anion Gap 10.4, BUN 21 H, Creatinine 1.10 H, Estimated Creat Clear 41, Estimated GFR 47 L, Est GFR ( Amer) 57 L, Glucose 120 H, Calcium 8.9, Phosphorus 3.7, Magnesium 1.9, Total Bilirubin 0.3, AST 35, ALT 26, Alkaline Phosphatase 147 H, Troponin I < 0.01, Total Protein 6.3, Albumin 3.4 L, Globulin 2.9, Albumin/Globulin Ratio 1.2, TSH 3.38, Free T4 1.05 10/16/22 12:50: VBG pH 7.39, VBG pCO2 44.0, VBG pO2 70.0 H, VBG HCO3 26.0, VBG Total CO2 27.4 H, VBG O2 Saturation 94.6 H, VBG Base Excess 1.1 10/16/22 14:30: Troponin I 0.04 H 10/16/22 18:50: Troponin I < 0.01 10/17/22 06:37: WBC 6.6, RBC 4.38, Hgb 12.9, Hct 39.8, MCV 91.0, MCH 29.4, MCHC 32.4, RDW 16.7, Plt Count 226 D, MPV 8.8, Neut % (Auto) 53.1, Lymph % (Auto) 33.5, [place] % (Auto) 7.5, Eos % (Auto) 5.4, Baso % (Auto) 0.4, Neut # (Auto) 3.5, Lymph # (Auto) 2.2, [place] # (Auto) 0.5, Eos # (Auto) 0.4, Baso # (Auto) 0.0, Sodium 142, Potassium 4.0, Chloride 104, Carbon Dioxide 31 H, Anion Gap 11.0, BUN 19 H, Creatinine 1.00, Estimated Creat Clear 47, Estimated GFR 53 L, Est GFR ( Amer) 64, Glucose 98, Calcium 9.2 I & O for Last 24 hours: Intake & Output 10/14/22 10/15/22 10/16/22 10/17/22 23:59 23:59 23:59 23:59 Intake Total 470 / 470 Balance 470 / 470 Weight 71.668 kg 71.6 kg Constitutional Constitutional: no acute distress *Routine HEENT Exam Head: Present normocephalic Eye: Present EOMI and PERRL ENT: Present mucous membranes moist *Routine Neck Exam Neck: Present supple; Absent lymphadenopathy *Routine Respiratory Exam Respiratory: Present CTA bilaterally *Routine Cardiov
--- NOTE | 2022-10-17 13:23 | HMH.OTEV ---
OT Inpatient Evaluation Rehab OT IP Evaluation Start: 10/16/22 21:23 Freq: ONCE Status: Active Protocol: Document 10/17/22 12:59 BRENDA (Rec: 10/17/22 13:19 [email or web address] [id number]) Rehab OT IP Assessment Subjective History 69 yowm adm to [facility] with general weakness and several recent falls. Hx of IDDM, hypertension, Heart failure, Afib, HLD, CAD status post stenting, lung/ esophageal cancer status post radiation therapy. He reports he is generally independent with all mobility without AD and is independent with all ADLs. He lives with his spouse. Subjective Yeah. 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 Unknown the level of independence with ADLs and fx'l mobility. Hx of R UE/LE CVA. Objective Patient Orientation Person Upper Extremity Gross ROM Sev Limitation >75% Bed Mobility bed mobility - supine/sit Assist Level Maximum x 2 (75% assist) Rehab OT IP prob,goals,plan Problems Date of Evaluation: 10/17/22 OT IP Problems Bed Mobility,Transfers,Balance ,Self care,Safety Rehab Potential Rehab Potential Good Plan OT intervention Plan Bed Mobility,Transfers,Balance ,Self care,Safety,Therapeutic Exercise OT Plan Frequency Daily Duration LOS Discharge Goals Bed Mobility Ability Assistance x1 Sit to Stand Chair Transfer Ability Maximum x 1 (75% assist) Chair Transfer Ability Maximum x 1 (75% assist) Chair Transfer Technique Sit to/from Ambulatory Discharge Plan OT Discharge Plan Once patient is medically stable, Patient may return back to SNF for skilled rehabiitation and nursing assistance. Patient will continue to be seen here for skilled IP services til return back to SNF. Eval Complexity Eval Charge Codes 58611 - Low Complexity G Codes G -code Required No PHYSICIAN CERTIFICATI
== END 2022-10-17 14:35 ==
LOC: ER 11:03 → 2ND 18:46
PROVIDERS: Admitting Provider Internal Medicine; Emergency Provider Emergency Medicine; PCP Family Medicine; Visit Provider Internal Medicine
DX: G20 Parkinson's disease (principal); R77.8 Other specified abnormalities of plasma proteins; F02.80 Dementia in other diseases classified elsewhere, unspecified severity, without behavioral disturbance, psychotic disturbance, mood disturbance, and anxiety; R53.1 Weakness; I10 Essential (primary) hypertension; E78.5 Hyperlipidemia, unspecified; K21.9 Gastro-esophageal reflux disease without esophagitis; E03.9 Hypothyroidism, unspecified; R25.9 Unspecified abnormal involuntary movements; I69.319 Unspecified symptoms and signs involving cognitive functions following cerebral infarction; Z79.899 Other long term (current) drug therapy; I69.322 Dysarthria following cerebral infarction; I69.391 Dysphagia following cerebral infarction; I69.351 Hemiplegia and hemiparesis following cerebral infarction affecting right dominant side; R13.10 Dysphagia, unspecified
CPT/HCPCS: 36415; 70450; 71045; 80048; 80053; 81001; 82803; 82962; 83735; 84100; 84439; 84443; 84484; 85025; 92610; 93005; 93306; 93308; 97163; 97165; 99285; G0378; J2405; Q9967

== ENCOUNTER 2023-01-18 02:33 | Emergency (ER) | payer MEDICARE, SELFPAY ==
--- NOTE | 2023-01-18 02:27 | CT_ITS ---
PROCEDURE INFORMATION: Exam: CTA Neck With Contrast Exam date and time: 01/18/2023 2:44 AM Age: 82 years old Clinical indication: Stroke-like symptoms; Altered mental status/memory loss; Additional info: EVELIN, lnk 0000 TECHNIQUE: Imaging protocol: Computed tomographic angiography of the neck with contrast. Exam focused on the cervical segments of the vasculature. 3D rendering (Not supervised by radiologist): MIP and/or 3D reconstructed images were created by the technologist. Radiation optimization: All CT scans at this facility use at least one of these dose optimization techniques: automated exposure control; mA and/or kV adjustment per patient size (includes targeted exams where dose is matched to clinical indication); or iterative reconstruction. Contrast material: ISOUVE; Contrast volume: 90 ml; Contrast route: INTRAVENOUS (IV); REPORTING DATA: Count of CT and Cardiac NM exams in prior 12 months: This patient has received [address] and 0 known cardiac nuclear medicine studies in the 12 months prior to the current study. COMPARISON: MR ANGIO NECK WO CON 02/05/2022 1:46 PM FINDINGS: Right common carotid artery: No stenosis. No dissection or occlusion. Right internal carotid artery: No stenosis of the extracranial segment. No dissection or occlusion. Right external carotid artery: No occlusion or stenosis of the origin. Left common carotid artery: No stenosis. No dissection or occlusion. Left internal carotid artery: No stenosis of the extracranial segment. No dissection or occlusion. Left external carotid artery: No occlusion or stenosis of the origin. Right vertebral artery: No stenosis. No dissection or occlusion. Left vertebral artery: No stenosis. No dissection or occlusion. Soft tissues: Normal. No significant soft tissue swelling. Bones/joints: No acute fracture. IMPRESSION: No occlusion or hemodynamically significant stenosis of the extracranial carotid systems and vertebral arteries. REFERENCES: NASCET CRITERIA. The degree of stenosis in the cervical segment of the internal carotid artery is based on NASCET criteria. Normal is no stenosis. Mild is less than 50% stenosis. Moderate is 50-69% stenosis. Severe is 70% to 99% stenosis. Total occlusion is no detectable patent lumen.
--- NOTE | 2023-01-18 02:27 | CT_ITS ---
PROCEDURE INFORMATION: Exam: CT Head Without Contrast Exam date and time: 01/18/2023 2:31 AM Age: 82 years old Clinical indication: Stroke-like symptoms; Altered mental status/memory loss; Additional info: AMS, lnk 0000 TECHNIQUE: Imaging protocol: Computed tomography of the head without contrast. Radiation optimization: All CT scans at this facility use at least one of these dose optimization techniques: automated exposure control; mA and/or kV adjustment per patient size (includes targeted exams where dose is matched to clinical indication); or iterative reconstruction. Other technique: STROKE PROTOCOL was implemented. REPORTING DATA: Count of CT and Cardiac NM exams in prior 12 months: This patient has received [address] and 0 known cardiac nuclear medicine studies in the 12 months prior to the current study. COMPARISON: CT HEAD/BRAIN WO CON 10/16/2022 1:06 PM FINDINGS: Brain: There is mild enlargement of the cortical sulci compatible with compatible with involutional changes . No evidence of mass effect or midline shift. Chronic lacunar infarcts on the left thalamus, basal ganglia and left jarrett radiata unchanged. Patchy areas of hypodensity without mass-effect are noted in the periventricular white matter . The monsivais/white matter interfaces are preserved. There are no extra-axial fluid collections.The basal cisterns are patent. Cerebral ventricles: No hydrocephalus. Paranasal sinuses: Well aerated. No fluid levels. Mastoid air cells: Visualized mastoid air cells are well aerated. Orbital cavities: Postsurgical changes in the right ocular globe. Bones/joints: Unremarkable. No acute fracture. Soft tissues: Unremarkable. IMPRESSION: 1. No evidence of intracranial hemorrhage, mass effect, midline shift or hydrocephalus. 2. Involutional changes. 3. Chronic lacunar infarcts on the left , basal ganglia and left jarrett radiata unchanged. Findings are non-specific but compatible with chronic microvascular ischemic disease. 4. No acute, discernible, transcortical territorial infarction identified. 5. Postsurgical changes in the right ocular globe. ASSESSMENT: ASPECTS ([place] Stroke Program Early CT Score) is 10.
--- NOTE | 2023-01-18 02:27 | CT_ITS ---
PROCEDURE INFORMATION: Exam: CTA Head With Contrast, Arteriography Exam date and time: 01/18/2023 2:44 AM Age: 82 years old Clinical indication: Stroke-like symptoms; Altered mental status/memory loss; Additional info: AMS, lnk 0000 TECHNIQUE: Imaging protocol: Computed tomographic angiography of the head with contrast. Exam focused on the arteries. 3D rendering (Not supervised by radiologist): MIP and/or 3D reconstructed images were created by the technologist. Radiation optimization: All CT scans at this facility use at least one of these dose optimization techniques: automated exposure control; mA and/or kV adjustment per patient size (includes targeted exams where dose is matched to clinical indication); or iterative reconstruction. Contrast material: ISOVUE; Contrast volume: 90 ml; Contrast route: INTRAVENOUS (IV); REPORTING DATA: Count of CT and Cardiac NM exams in prior 12 months: This patient has received [address] and 0 known cardiac nuclear medicine studies in the 12 months prior to the current study. COMPARISON: MR ANGIO HEAD WO CON 02/05/2022 1:46 PM FINDINGS: ANTERIOR CIRCULATION: Right internal carotid artery: Intracranial segment is patent with no significant stenosis. No aneurysm. Right middle cerebral artery: No occlusion or significant stenosis. No aneurysm. Right anterior cerebral artery: No occlusion or significant stenosis. No aneurysm. Left internal carotid artery: Intracranial segment is patent with no significant stenosis. No aneurysm. Left middle cerebral artery: No occlusion or significant stenosis. No aneurysm. Left anterior cerebral artery: No occlusion or significant stenosis. No aneurysm. POSTERIOR CIRCULATION: Right vertebral artery: No occlusion or significant stenosis. No aneurysm. Left vertebral artery: No occlusion or significant stenosis. No aneurysm. Basilar artery: No occlusion or significant stenosis. No aneurysm. Right posterior cerebral artery: No occlusion or significant stenosis. No aneurysm. Left posterior cerebral artery: No occlusion or significant stenosis. No aneurysm. Brain: Involutional changes. No evidence of mass effect or midline shift. Chronic lacunar infarcts on the left thalamus, basal ganglia and left jarrett radiata unchanged. Patchy areas of hypodensity without mass-effect are noted in the periventricular white matter . The monsivais/white matter interfaces are preserved. There are no extra-axial fluid collections.The basal cisterns are patent. Cerebral ventricles: No ventriculomegaly. Bones/joints: Unremarkable. No acute fracture. Soft tissues: Unremarkable. IMPRESSION: 1. No large vessel stenosis or occlusion. 2. Chronic lacunar infarcts on the left , basal ganglia and left jarrett radiata unchanged. Findings are non-specific but compatible with chronic microvascular ischemic disease.
--- NOTE | 2023-01-18 02:29 | PC.NURSE ---
stroke alert @ 0228 and BGL of 117mL/dL
[2023-01-18 02:36] LABS: POC Glucose,Bedside 117 (70-110)
--- NOTE | 2023-01-18 02:43 | XR_ITS ---
PROCEDURE INFORMATION: Exam: XR Chest Exam date and time: 01/18/2023 3:01 AM Age: 82 years old Clinical indication: Other: AMS TECHNIQUE: Imaging protocol: Radiologic exam of the chest. Views: 1 view. COMPARISON: CR XR CHEST PORTABLE 10/16/2022 1:13 PM FINDINGS: Lungs: Unremarkable. No consolidation. Pleural spaces: Unremarkable. No pleural effusion. No pneumothorax. Heart/Mediastinum: Unremarkable. No cardiomegaly. Bones/joints: Unremarkable. IMPRESSION: No acute findings.
[2023-01-18 02:46] VITALS: BMI 32.3
--- NOTE | 2023-01-18 02:55 | HMH.ITSTN ---
Stroke Alert; GFR completion/results were overrode for the use of contrast media by the Physician on a risk vs. benefit situation with this patient.
--- NOTE | 2023-01-18 03:01 | ECG_ITS ---
APPROVED REPORT Exam: Resting ECG HR:67 bpm ECG Measurements Heart Rate 67 AXES SD 173 P 49 QRSd 75 QRS 5 QT 378 T 28 QTc 393 Conclusion SINUS RHYTHM LOW QRS VOLTAGE IN PRECORDIAL LEADS [QRS DEFLECTION < 1.0 mV IN CHEST LEADS] BORDERLINE ECG UNCONFIRMED REPORT Electronically signed by : Obed Carrington MD 01/18/2023 16:29:49
[2023-01-18 03:05] VITALS: BP 137/68; PULSE 67; RESP 14; TEMP 36.1; O2SAT 100; BMI 30.4
[2023-01-18 03:15] VITALS: BP 137/68; PULSE 62; RESP 14; O2SAT 100
[2023-01-18 03:24] LABS: Microscopic, Urine URINE MICROSCOPIC (MICROSCOPIC)
[2023-01-18 03:25] LABS: Appearance,Urine CLEAR (Clear); Bilirubin,Urine Negative (Negative); Blood, Urine Negative (Negative); Color,Urine YELLOW (Yellow); Glucose,Urine (UA) Negative (Negative); Ketones,Urine TRACE (Negative); Leukocyte Esterase,Urine Negative (Negative); Nitrate,Urine Negative (Negative); Protein,Urine Negative (Negative); Specific Gravity, Urine 1.025 (1.005-1.030); Urobilinogen,Urine 0.2 EU/dl (0.2)
--- NOTE | 2023-01-18 03:26 | PC.NURSE ---
[address] Provider at bedside. Reassessment complete. See NIH scale.
[2023-01-18 03:33] LABS: VBG Base Excess 2.3 mmol/L (-2.4-2.3); VBG HCO3 27.9 mmol/L (23-30); VBG Oxygen Saturation 71.5 % (50-70); VBG PH 7.35 mmol/L (7.31-7.41); VBG PO2 38.4 mmol/L (28-40); VBG Total CO2 29.5 mmol/L (23-27)
[2023-01-18 03:34] VITALS: PULSE 59; PULSE 60
[2023-01-18 03:38] LABS: VBG PCO2 51.7 mmol/L (35-51)
[2023-01-18 03:40] LABS: Mucus,Urine Trace /lpf
--- NOTE | 2023-01-18 03:44 | HMH.EDGENADL ---
Discharge Plan Disposition Patient Disposition: Home, Self-Care Condition: Good Prescriptions Prescriptions: No Action albuterol sulfate [ProAir HFA] 90 mcg/actuation HFA aerosol inhaler 2 puff inhalation Q4HP PRN (Reason: Asthma) multivitamin Tablet 1 tab PO DAILY aripiprazole [Abilify] 5 mg tablet 5 mg PO DAILY Alphagan P 0.1 % drops 1 drp ophthalmic (eye) Q8H menthol-zinc oxide [Calmoseptine] 0.44-20.6 % ointment 1 applic topical QID PRN docusate sodium [Colace] 100 mg capsule 100 mg PO DAILY omeprazole 20 mg capsule,delayed release(DR/EC) 20 mg PO DAILY lisinopril 20 mg tablet 20 mg PO DAILY Qty: 30 2RF baclofen 10 mg tablet 10 mg PO QHS Qty: 90 0RF duloxetine 30 mg capsule,delayed release(DR/EC) 30 mg PO DAILY Qty: 90 0RF pregabalin [Lyrica] 100 mg capsule 100 mg PO TID Qty: 90 5RF hydrocodone-acetaminophen 7.5-325 mg tablet 1 tab PO Q6H Qty: 120 0RF zolpidem [Ambien] 5 mg tablet 5 mg PO HS Qty: 30 5RF montelukast 10 MG tablet 10 mg PO HS levothyroxine 25 MCG tablet 25 mcg PO DAILY ropinirole 0.25 MG tablet 0.25 mg PO HS enoxaparin 40 mg/0.4 mL Syringe Kit 40 mg SQ DAILY atorvastatin 40 mg tablet 40 mg PO QHS aspirin 81 mg tablet,chewable 81 mg PO DAILY duloxetine 60 mg capsule,delayed release(DR/EC) 60 mg PO HS polyethylene glycol 3350 17 gram Powder In Packet 17 g PO DAILY acetaminophen 500 mg Tablet 500 mg PO Q6HP PRN (Reason: Pain or fever) metoprolol succinate 25 mg capsule,sprinkle,ER 24hr 25 mg PO DAILY Qty: 30 1RF Referrals Follow up/Referrals: Provider,Referral, MD [Primary Care Provider] - See instructions Activity Restrictions/Add. Instructions Additional Instructions/Restrictions: You were evaluated in the emergency department today. Please follow-up closely with your primary care provider. Return to the emergency department for new or worsening symptoms. Avoid sedating medications. Clinical Impressions Clinical Impression: Transient alteration of awareness Discharge ED Provider: Morales,Delia N General Adult HPI General Chief complaint: Neuro Symptoms/Deficit Stated complaint: AMS Time Seen by Provider: 01/18/23 02:35 Mode of Arrival: EMS Source of Information: EMS and Medical Record Limitations: Physical Limitations Description of Symptoms (Recalled from ER Triage Doc. by RN): Per nurse @ Nursing facility, Pt last known normal was at 1900 last night. Nurse reports she went into pts room around 0030 to give scheduled [place] and reported pt was lethargic at that time. Pt took 1/2 dose Highwood at that time. [facility] called stroke alert. Pt was assessed immediately upon arrival. FSBS 117. Pt taken to CT on EMS stretcher. Provider at bedside. 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 According to the nursing facility, she was last seen normal at 1900 last night. They went back into check on her around 12:30 AM to give her her scheduled [place], and they noted that she was lethargic at that time. They only gave her half the dose of Highwood given this. [facility] brought in the patient by EMS with concern for stroke alert with an acute change in her mental status. Per them, she was hemodynamically stable en route with a normal blood glucose, however she was unresponsive. She would open her eyes to verbal stimulation but would not communicate or follow commands. Patient does not contribute to history given altered mental status. Related Data Home Medications Medication Instructions Recorded Confirmed montelukast 10 mg tablet 10 mg PO HS Asthma 01/05/21 11/15/22 levothyroxine 25 mcg t
[2023-01-18 03:59] LABS: Basophils # 0.1 K/mm3 (0-0.2); Basophils % 0.7 % (0.1-2.0); Eosinophils # 0.7 K/mm3 (0.0-0.4); Eosinophils % 9.7 % (0.1-12.0); Hematocrit 42.5 % (37.0-47.0); Hemoglobin 13.8 g/dL (12.2-16.2); Lymphocytes # 2.9 K/mm3 (0.7-4.5); Lymphocytes % 38.4 % (10-50); Mean Corpuscular HGB Conc 32.5 g/dL (31.8-35.4); Mean Corpuscular Hemoglobin 29.9 pg (27.0-31.2); Mean Corpuscular Volume 91.9 fl (81-99); Mean Platelet Volume 8.8 fl (7.4-10.4); Monocytes # 0.6 K/mm3 (0.1-1.0); Monocytes % 7.7 % (1.7-9.3); Neutrophils # 3.3 K/mm3 (1.8-7.8); Neutrophils % 43.5 % (37.0-80.0); Platelet Count 185 K/mm3 (142-424); Red Blood Count 4.62 M/mm3 (4.20-5.40); Red Cell Distribution Width 15.1 % (11.5-17.5); White Blood Count 7.5 K/mm3 (4.8-10.8)
[2023-01-18 04:05] LABS: Alanine Aminotransferase 34 U/L (12-78); Albumin/Globulin Ratio 1.4 (1.1-1.8); Alkaline Phosphatase 92 U/L (38-126); Anion Gap 10.1 mEq/L (5-15); Aspartate Amino Transferase 39 U/L (14-36); Bilirubin,Total 0.3 mg/dl (0.2-1.3); Blood Urea Nitrogen 17 mg/dl (7-17); Carbon Dioxide 29 mmol/L (22.0-30.0); Chloride 103 mmol/L (98-107); Creatinine Clearance Estimated 60 mL/min (50-200); Estimated Glomerular Filt Rate 60 ml/min (>60); GFR (African American) 72 ML/MIN (>60); Globulin 2.9 g/dL (1.3-3.2); Glucose 113 mg/dl (74-100); Potassium 4.1 mmoL/L (3.5-5.1); Sodium 138 mmol/L (136-145); Total Protein,Serum 6.9 g/dl (6.3-8.2)
[2023-01-18 04:09] LABS: Lactic Acid 2.1 mmol/L (0.7-2.1)
[2023-01-18 04:21] LABS: Activated Partial Thrombo Time 20.2 seconds (22.8-30.6); Prothrombin Time 9.8 seconds (10.1-12.5); Troponin I < 0.01 ng/ml (0.00-0.034)
[2023-01-18 04:22] LABS: T4 (Thyroxine) 8.1 ug/dl (5.53-11.0)
--- NOTE | 2023-01-18 04:33 | PC.NURSE ---
notified [facility] that pt is ready for transport to [facility]
[2023-01-18 04:35] VITALS: BP 168/97; PULSE 61; RESP 20; TEMP 36.6; O2SAT 98
[2023-01-18 04:36] LABS: Thyroid Stimulating Hormone 4.52 uIU/mL (0.465-4.68)
== END 2023-01-18 05:00 | disposition home or self-care (01) ==
PROVIDERS: Emergency Provider Emergency Medicine
DX: R41.82 Altered mental status, unspecified (principal); I69.351 Hemiplegia and hemiparesis following cerebral infarction affecting right dominant side; I69.320 Aphasia following cerebral infarction; I10 Essential (primary) hypertension; E78.5 Hyperlipidemia, unspecified; E03.9 Hypothyroidism, unspecified; E66.9 Obesity, unspecified; M79.7 Fibromyalgia; F41.9 Anxiety disorder, unspecified; G62.9 Polyneuropathy, unspecified; Z79.01 Long term (current) use of anticoagulants
CPT/HCPCS: 36415; 70450; 70496; 70498; 71045; 80053; 81001; 82803; 82962; 83605; 84436; 84443; 84484; 85025; 85610; 85730; 93005; 99285; Q9967

== ENCOUNTER 2024-03-08 14:23 | Observation (INO) | payer MEDICARE, SELFPAY ==
[2024-03-08] VITALS (10 sets, daily range): BP systolic 114–146; BP diastolic 48–75; PULSE 72–100; RESP 16–25; TEMP 36.7–37; O2SAT 92–100; BMI 29.9
--- NOTE | 2024-03-08 14:26 | XR_ITS ---
PROCEDURE INFORMATION: Exam: XR Chest Exam date and time: 03/08/2024 2:36 PM Age: 83 years old Clinical indication: Shortness of breath; Additional info: Cough, SOA TECHNIQUE: Imaging protocol: Radiologic exam of the chest. Views: 1 view. Total images: 1 COMPARISON: CR XR CHEST PORTABLE 01/18/2023 3:01 AM FINDINGS: Lungs: Atelectatic changes within both lung bases. No focal pneumonia. Pleural spaces: PICC no effusions No evidence of pneumothorax. Heart/Mediastinum: Heart demonstrates mild diffuse enlargement. Diaphragm: There is nonspecific elevation of the right hemidiaphragm. Bones/joints: Postoperative changes of the right proximal humerus. IMPRESSION: 1. Mild cardiomegaly. 2. Atelectatic changes within both lung bases. 3. No focal pneumonia.
--- NOTE | 2024-03-08 14:31 | ECG_ITS ---
APPROVED REPORT Exam: Resting ECG HR:86 bpm ECG Measurements Heart Rate 86 AXES ND 164 P 44 QRSd 84 QRS -24 QT 350 T 8 QTc 393 Conclusion SINUS RHYTHM LOW QRS VOLTAGE IN PRECORDIAL LEADS [QRS DEFLECTION < 1.0 mV IN CHEST LEADS] POSSIBLE ANTERIOR MYOCARDIAL INFARCTION , PROBABLY OLD [30 ms Q WAVE IN V3/V4, OR R < 0.2 mV IN V4] No STEMI Electronically signed by : KAE BORDEN, 03/08/2024 15:40:46
--- NOTE | 2024-03-08 14:38 | [facility].EDGENADL ---
Discharge Plan Disposition Patient Disposition: Admitted Prescriptions Prescriptions: No Action albuterol sulfate [ProAir HFA] 90 mcg/actuation HFA aerosol inhaler 2 puff inhalation Q4HP PRN (Reason: Asthma) multivitamin Tablet 1 tab PO DAILY Alphagan P 0.1 % drops 1 drp ophthalmic (eye) Q8H menthol-zinc oxide [Calmoseptine] 0.44-20.6 % ointment 1 applic topical QID PRN docusate sodium [Colace] 100 mg capsule 100 mg PO DAILY omeprazole 20 mg capsule,delayed release(DR/EC) 20 mg PO DAILY lisinopril 10 mg tablet 10 mg PO DAILY Qty: 90 3RF clopidogrel [Plavix] 75 mg tablet 75 mg PO DAILY Qty: 90 3RF escitalopram oxalate 10 mg tablet 10 mg PO DAILY aripiprazole 2 mg tablet 2 mg PO DAILY Qty: 30 2RF baclofen 10 mg tablet 10 mg PO QHS Qty: 90 0RF duloxetine 30 mg capsule,delayed release(DR/EC) 30 mg PO DAILY Qty: 90 0RF diphenhydramine HCl [Benadryl Allergy] 12.5 mg/5 mL liquid 12.5 mg PO Q6H PRN (Reason: rash) pregabalin [Lyrica] 100 mg capsule 100 mg PO TID Qty: 90 5RF tobramycin-dexamethasone [TobraDex] 0.3-0.1 % drops,suspension 1 drp ophthalmic (eye) QID Qty: 5 0RF prednisone 20 mg tablet 20 mg PO DAILY Qty: 3 0RF codeine-guaifenesin 10-100 mg/5 mL liquid 5 ml PO Q6H PRN (Reason: cough) Qty: 120 1RF tramadol 50 mg tablet 50 mg PO QID Qty: 120 0RF montelukast 10 MG tablet 10 mg PO HS levothyroxine 25 MCG tablet 25 mcg PO DAILY ropinirole 0.25 MG tablet 0.25 mg PO HS atorvastatin 40 mg tablet 40 mg PO QHS aspirin 81 mg tablet,chewable 81 mg PO DAILY polyethylene glycol 3350 17 gram Powder In Packet 17 g PO DAILY acetaminophen 500 mg Tablet 500 mg PO Q6HP PRN (Reason: Pain or fever) metoprolol succinate 25 mg capsule,gurpreet,ER 24hr 25 mg PO DAILY Qty: 30 1RF Referrals Follow up/Referrals: Blanco,Jb [Primary Care Provider] - See instructions Clinical Impressions Clinical Impression: Asthma exacerbation, Arm pain, left, Pulmonary embolism, Cellulitis of arm, left, Acute encephalopathy Print Language Print Language: Maori Discharge ED Provider: Delia Morales General Adult HPI <Delia Morales DO - Last Filed: 03/08/24 15:20> General Chief complaint: Shortness of Breath/Dyspnea Stated complaint: SOA, cellulitis LA Time Seen by Provider: 03/08/24 14:26 History of Present Illness HPI narrative: This patient is an 83-year-old female with a history of asthma not on home oxygen, 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 She arrives from [facility] via EMS. According to nursing facility report that was called, the patient was started on antibiotics for cellulitis at this left upper extremity. They sent a current medication list for the patient, and it looks like the patient was started on Keflex. This was initiated 03/06/2024. According to EMS, they were called to the nursing facility with regards to the patient's wheezing and respiratory difficulties. They note that she was hypoxic on room air requiring 2 L nasal cannula en route. They also note the patient felt very warm and diaphoretic. Patient does not contribute to history given her cognitive impairment. Related Data Home Medications ?Medication ?Instructions ?Recorded ?Confirmed montelukast 10 mg tablet 10 mg PO HS Asthma 01/05/21 12/03/23 levothyroxine 25 mcg tablet 25 mcg PO DAILY Thyroid 09/03/21 12/03/23 ropinirole 0.25 mg tablet 0.25 mg PO HS restless leg syndrome 09/03/21 12/03/23 albuterol sulfate 90 mcg/actuation 2 puff inhalation Q4HP PRN Asthma 01/30/22 12/03/23 aerosol inhaler (ProAir HFA) multivitamin 1 tab PO DAILY Supplement 01/30/22 12/03/23 aspirin 81 mg chewable tablet 81 mg PO DAILY heat health 10/16/22 12/03/23 atorvastatin 40 mg tablet 40 mg PO QHS Cholesterol 10/16/22 12/03/23 acetaminophen 500 mg tablet 500 mg PO Q6HP PRN Pain or fever 10/17/22 12/03/23 polyethylene glycol 3350 17 gram 17 g PO DAILY Constipation 10/17/22 12/03/23 oral powder packet brimonidine 0.1 % eye drops 1 drp ophthalmic (eye) Q8H 11/15/22 12/03/23 (Alphagan P) docusate sodium 100 mg capsule 100 mg PO DAILY 11/15/22 12/03/23 (Colace) menthol 0.44 %-zinc oxide 20.6 % 1 applic topical QID PRN 11/15/22 12/03/23 topical ointment (Calmoseptine) omeprazole 20 mg capsule,delayed 20 mg PO DAILY 11/15/22 12/03/23 release diphenhydramine HCl 12.5 mg/5 mL 12.5 mg PO Q6H PRN rash 02/08/23 12/03/23 oral liquid (Benadryl Allergy) escitalopram oxalate 10 mg tablet 10 mg PO DAILY 03/27/23 12/03/23 Previous Rx's ?Medication ?Instructions ?Recorded baclofen 10 mg tablet 10 mg PO QHS muscle spasms #90 tabs 09/27/22 duloxetine 30 mg capsule,delayed 30 mg PO DAILY Depression #90 caps 09/27/22 release metoprolol succinate 25 mg capsule 25 mg PO DAILY #30 ea 10/17/22 sprinkle, ext. release 24 hr lisinopril 10 mg tablet 10 mg PO DAILY #90 tabs 05/28/23 clopidogrel 75 mg tablet (Plavix) 75 mg PO DAILY #90 tabs 05/29/23 pregabalin 100 mg capsule (Lyrica) 100 mg PO TID nerve bay #90 caps 10/05/23 tobramycin 0.3 %-dexamethasone 0.1 1 drp ophthalmic (eye) QID #5 mL 11/07/23 % eye drops,suspension (TobraDex) aripiprazole 2 mg tablet 2 mg PO DAILY #30 tabs 12/05/23 prednisone 20 mg tablet 20 mg PO DAILY wheezing #3 tabs 12/12/23 codeine 10 mg-guaifenesin 100 mg/5 5 ml PO Q6H PRN cough #120 mL 12/13/23 mL oral liquid tramadol 50 mg tablet 50 mg PO QID pain #120 tabs 12/16/23 Allergies Allergy/AdvReac Type Severity Reaction Status Date / Time Sulfa (Sulfonamide Allergy Mild unkno Verified 03/08/24 15:06 Antibiotics) (SULFA (SULFONAMIDE ANTIBIOTICS)) <Jose Patel MD - Last Filed: 03/08/24 16:46> History of Present Illness HPI narrative: This patient is an 83-year-old female with a history of asthma not on home oxygen, 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 She arrives from [facility] via EMS. According to nursing facility report that was called, the patient was started on antibiotics for cellulitis at this left upper extremity. They sent a current medication list for the patient, and it looks like the patient was started on Keflex. This was initiated 03/06/2024. According to EMS, they were called to the nursing facility with regards to the patient's wheezing and respiratory difficulties. They note that she was hypoxic on room air requiring 2 L nasal cannula en route. They also note the patient felt very warm and diaphoretic. Patient does not contribute to history given her cognitive impairment. [facility] <Delia Morales DO - Last Filed: 03/08/24 15:20> [facility] Disclaimer: The information contained in this section may have been updated after the patient was seen, as this information can be updated by other users. Medical History Cerebral infarction due to thrombosis of left middle cerebral artery Polyneuropathy Anxiety Aphasia Dysphasia Family History Other Cancer Coronary artery disease Diabetes Hypertension Social History Smoking Status: Never smoker second hand exposure: No alcohol intake: never substance use type: denies use current occupational status: retired Travel in the last 8 weeks: None household members: none housing: senior living caffeine: Yes Have you lived/traveled outside [place] in past 30 days?: No Contact w/someone who lives/traveled outside US past 30 days?: No Exposure to someone with infectious disease in past 14 days?: No Do you have a fever (greater than 100.4 F or 38 C)?: No Have you tested positive for COVID-19: No Exposed to someone with COVID-19 in past 14 days?: No Do you have a sore throat?: No Do you have a cough?: No Do you have any weakness?: No Do you have any diarrhea?: No Are you experiencing any unusual bleeding?: No Do you have any muscle aches/pain?: No Do you have any abdominal pain?: No Are you experiencing loss of taste or smell?: No Other Medical History Have you received the Flu Vaccine for this season: No Have you received the Pneumonia Vaccine: Yes <Delia Morales DO - Last Filed: 03/08/24 15:20> ROS Obtained: Yes All systems reviewed & no additional complaints except as documented Physical Exam <Delia Morales DO - Last Filed: 03/08/24 15:20> General General appearance: alert Comment: Ill-appearing, diaphoretic Head Head exam: atraumatic and normocephalic Eye Eye exam: Present normal appearance, PERRL and EOMI ENT ENT exam: Present normal exam, normal oropharynx, mucous membranes moist and normal external ear exam Neck Neck exam: Present normal inspection, full ROM and trachea midline; Absent tenderness Chest Chest inspection: Present normal inspection and symmetric chest wall rise; Absent tenderness Respiratory Respiratory exam: Present respiratory distress, wheezes, accessory muscle use, prolonged expiratory phase and other (Bilateral inspiratory and expiratory wheezing noted from across the room. Tachypnea with accessory muscle use and prolonged expiratory phase.); Absent stridor Cardiovascular Cardiovascular exam: Present regular rate and normal rhythm Abdominal Exam Abdominal exam: Present soft; Absent distention, tenderness or guarding Extremities Exam Extremities exam: Present tenderness, normal capillary refill, edema and other (Redness, warmth, and tenderness to the left upper extremity with good pulses distally. All compartments soft.) Neurological Exam Neurological exam: Present alert and other (Reportedly at her neurologic baseline) Skin Skin exam: Present warm and diaphoresis Medical Decision Making <Delia Morales DO - Last Filed: 03/08/24 15:20> Medical Records Medical records reviewed: Yes I reviewed the patient's medical records. Screening: Per USPSTF and CDC recommendations, given the prevalence of disease in our region, it is our hospital?s policy to screen for HIV and viral Hepatitis for all patients aged 18 and over and those with ongoing risk factors. Yandel Inquiry Pt receiving controlled substance: No Vital Signs: 03/08/24 14:23 03/08/24 14:54 03/08/24 15:00 Temperature 98.4 F Temperature Source Oral Pulse Rate 85 87 Pulse Rate [Left Radial] 88 Respiratory Rate 20 16 25 H Blood Pressure 139/69 136/68 Blood Pressure [Right Arm] 146/74 H Blood Pressure Mean Blood Pressure Mean [Right Arm] 98 Blood Pressure Source [Right Arm] Automatic Cuff Blood Pressure Position [Right Arm] Sitting 02 Sat by Pulse Oximetry 92 L 97 96 Oxygen Delivery Method Room Air Nasal Cannula Nasal Cannula Oxygen Flow Rate (LPM) 2 2 03/08/24 15:15 03/08/24 15:30 03/08/24 16:00 Temperature Temperature Source Pulse Rate 84 84 88 Pulse Rate [Left Radial] Respiratory Rate 23 23 18 Blood Pressure 130/75 142/75 H Blood Pressure [Right Arm] Blood Pressure Mean 97 Blood Pressure Mean [Right Arm] Blood Pressure Source [Right Arm] Blood Pressure Position [Right Arm] 02 Sat by Pulse Oximetry 100 100 100 Oxygen Delivery Method Nasal Cannula Oxygen Flow Rate (LPM) 2 03/08/24 16:30 Temperature Temperature Source Pulse Rate 91 H Pulse Rate [Left Radial] Respiratory Rate 18 Blood Pressure 114/48 L Blood Pressure [Right Arm] Blood Pressure Mean 70 Blood Pressure Mean [Right Arm] Blood Pressure Source [Right Arm] Blood Pressure Position [Right Arm] 02 Sat by Pulse Oximetry 93 L Oxygen Delivery Method Oxygen Flow Rate (LPM) Lab Data Lab results reviewed: Yes I reviewed the patient's lab results. Lab Results 03/08/24 14:35: WBC 10.4, RBC 4.09 L, Hgb 11.4 L, Hct 35.9 L, MCV 87.8, MCH 27.9, MCHC 31.8, RDW 17.0, Plt Count 296, MPV 10.4, Neut % (Auto) 59.0, Lymph % (Auto) 22.7, Lyon % (Auto) 12.7 H, Eos % (Auto) 4.7, Baso % (Auto) 0.5, Neut # (Auto) 6.1, Lymph # (Auto) 2.4, Lyon # (Auto) 1.3 H, Eos # (Auto) 0.5 H, Baso # (Auto) 0.1, D-Dimer 1.15 H, Sodium 141, Potassium 4.0, Chloride 104, Carbon Dioxide 31 H, Anion Gap 10.0, BUN 23 H, Creatinine 0.90, Estimated Creat Clear 53, Estimated GFR 60, Est GFR ( Amer) 72, Glucose 121 H, Lactate 1.1, Calcium 8.8, Magnesium 2.1, Total Bilirubin 0.2, AST 37 H, ALT 21, Alkaline Phosphatase 116, Troponin I < 0.01, C-Reactive Protein 131.2 H, NT-Pro-B Natriuret Pep 929 H, Total Protein 6.4, Albumin 3.2 L, Globulin 3.2, Albumin/Globulin Ratio 1.0 L, Procalcitonin 0.188, TSH 2.18 03/08/24 14:44: VBG pH 7.41, VBG pCO2 41.3, VBG pO2 96.1 H, VBG HCO3 25.7, VBG Total CO2 26.9, VBG O2 Saturation 97.1 H, VBG Base Excess 1.0, VBG Lactic Acid 1.1 03/08/24 14:47: Urine Color Yellow, Urine Appearance Clear, Urine pH 6.0, Ur Specific [place] >= 1.030, Urine Protein Trace, Urine Glucose (UA) Negative, Urine Ketones Negative, Urine Blood Negative, Urine Nitrate Negative, Urine Bilirubin Negative, Urine Urobilinogen 0.2, Ur Leukocyte Esterase Negative, Urine RBC None, Urine WBC 5-10, Ur Squamous Epith Cells 3-5, Urine Bacteria Trace 03/08/24 14:35 03/08/24 14:35 Orders (Tests/Meds): ED MEDICATIONS Generic Name Dose Route Start Last Admin Trade Name Freq PRN Reason Stop Dose Admin Enoxaparin Sodium 80 mg 03/08/24 16:45 Enoxaparin 100mg/Ml Syringe 1 mg/kg (80 mg) 04/07/24 16:44 SUBCUT Q12H ANJU Ceftriaxone Sodium 1 gm/ 50 mls @ 100 mls/hr 03/08/24 16:37 Sodium Chloride IV 03/08/24 17:06 ONCE ONE Vancomycin HCl 2,000 mg/ 250 mls @ 125 mls/hr 03/08/24 16:45 Sodium Chloride IV 03/08/24 18:44 ONCE ONE Miscellaneous 1 each 03/08/24 16:45 Vancomycin Consult Request NOTAPPLIC 04/07/24 16:44 CONSULT PHARMACY [facility] Sodium Chloride 10 ml 03/08/24 16:09 03/08/24 16:11 Sodium Chloride 0.9% 10ml Syr (Rad Only) IV 04/07/24 16:08 10 ml NEEDED PRN Administration Maintain IV Site Discontinued Medications Generic Name Dose Route Start Last Admin Trade Name Freq PRN Reason Stop Dose Admin Albuterol/Ipratropium 9 ml 03/08/24 14:28 03/08/24 15:02 Ipratropium/Albuterol 3 Ml Neb IH 03/08/24 14:29 9 ml ONCE ONE Administration Magnesium Sulfate 2 gm in 50 mls @ 50 mls/hr 03/08/24 14:42 03/08/24 15:02 Magnesium Sulfate 2gm/50ml Premix IV 03/08/24 15:41 50 mls/hr ONCE ONE Administration Azithromycin 500 mg/ Sodium 250 mls @ 250 mls/hr 03/08/24 16:37 Chloride IV 03/08/24 16:38 ONCE ONE Iopamidol 70 ml 03/08/24 16:09 03/08/24 16:11 Iopamidol-370 (76%);100ml Bottle IV 03/08/24 16:10 70 ml ONCE ONE Administration Methylprednisolone Sodium Succinate 125 mg 03/08/24 14:42 03/08/24 15:02 Methylprednisolone Sod Succ 125mg Vial IV 03/08/24 14:43 125 mg ONCE ONE Administration Sodium Chloride 50 ml 03/08/24 16:09 03/08/24 16:10 0.9 % Sodium Chloride 50 Ml Vial IV 03/08/24 16:10 50 ml ONCE ONE Administration ORDERS Category Date Time Status CT angio chest PE protocol Stat Cat Scan 03/08/24 15:19 Completed CXR --portable [XR chest portable] Stat Exams 03/08/24 14:26 Completed Elbow XR left mininum 3 views [XR elbow LT min 3V] Stat Exams 03/08/24 15:13 Completed Forearm XR left 2 views [XR forearm LT 2V] Stat Exams 03/08/24 15:13 Completed POCUS Point of Care (ER Only) Stat Exams 03/08/24 14:50 Taken Wrist XR left minimum 3 views [XR wrist LT min 3V] Stat Exams 03/08/24 15:13 Completed BNP [NT Pro Brain Natriuretic Pep.] Stat Lab 03/08/24 14:35 Completed CRP [C-Reactive Protein] Stat Lab 03/08/24 14:35 Completed Complete Blood Count Auto Diff Stat Lab 03/08/24 14:35 Completed Comprehensive Metabolic Panel Stat Lab 03/08/24 14:35 Completed D-Dimer Stat Lab 03/08/24 14:35 Completed Full Resp Panel w/COVID ([facility]) Routine Lab 03/08/24 16:43 Ordered HIV Combo Stat Lab 03/08/24 14:35 Received Hepatitis C Ab Qual. W/ RFX Stat Lab 03/08/24 14:35 Received Lactic Acid Stat Lab 03/08/24 14:35 Completed Magnesium Stat Lab 03/08/24 14:35 Completed Procalcitonin Stat Lab 03/08/24 14:35 Completed TSH [Thyroid Stimulating Hormone] Stat Lab 03/08/24 14:35 Completed Trop I [Troponin I] Stat Lab 03/08/24 14:35 Completed Troponin I Q3H Lab 03/08/24 17:30 Ordered Troponin I Q3H Lab 03/08/24 20:30 Ordered UA [Urinalysis and Microscopic] Stat Lab 03/08/24 14:47 Completed Blood Culture Stat Micro 03/08/24 14:38 Received Urine Culture Stat Micro 03/08/24 14:50 Received VBG [Venous Blood Gas] Stat RT 03/08/24 14:44 Completed ECG Data Tracing #1: I reviewed this ECG and interpreted as documented below: Normal sinus rhythm with a ventricular rate of 86 bpm. Nonspecific T wave changes without acute STEMI. Normal intervals ECG initial impression date: 03/08/24 ECG initial impression time: 14:45 Medical Decision Narrative: In summary, this patient is a 83-year-old female presenting to the Emergency Department for evaluation of increased work of breathing and redness, warmth, and swelling of her left upper extremity with recent initiation of treatment for cellulitis. Differential diagnoses considered include but are not limited to cellulitis, sepsis, pneumonia, PE, asthma exacerbation, respiratory failure. Ruling out the most morbid conditions drove assessment. It should be noted patient's history includes asthma, hypertension, hyperlipidemia, hypothyroidism which may or may not be at goal therapy. This complicates all aspects of care by increasing patient's risk for morbidity. I reviewed patient's past medical records and noted most recent evaluation which was from the senior living visit November 2023. I also reviewed the packet that came with her and noted that she is currently on Keflex to treat the cellulitis of her left upper extremity. On exam, the patient is ill-appearing, diaphoretic, and in mild respiratory distress. She has wheezing audible from across the room. She is in acute respiratory failure requiring 2 L nasal cannula. She has redness, warmth, and tenderness of her left upper extremity but all compartments are soft and she is neurovascularly intact distally. No open wounds. Workup included broad lab evaluation to evaluate for infectious, metabolic, cardiac causes of the patient's symptoms including blood cultures, troponins, BNP. I also obtained a chest x-ray. Given the redness, warmth, and swelling of her left upper extremity as well as the respiratory failure, I did order a D-dimer to risk stratify for DVT/ PE, however I feel infection is much more likely given current clinical presentation. I cannot use PERC criteria to exclude given the patient's age greater than 50. I had an interactive discussion with EMS who brought the patient to obtain history, as detailed in HPI. EKG obtained is reassuring without acute ST changes concerning for ischemia. Interventions included DuoNebs x 3, IV methylprednisolone, and IV magnesium with concern for asthma with acute exacerbation and acute respiratory distress. I performed a DVT ultrasound and soft tissue ultrasound of the left upper extremity and noted cobblestoning consistent with cellulitis, however I did not see a large focal abscess, subcutaneous gas, or evidence of DVT. Patient did have significant pain with range of motion of the left upper extremity, so I did order x-rays of the left elbow, forearm, wrist. Initial labs are significant for elevated D-dimer at 1.15. CBC demonstrates a mild anemia at 11.4 from a baseline of 13.8. Patient's white blood cell count is not significantly elevated at 10.4. Chemistry demonstrates no significant changes from the patient's baseline. Her inflammatory markers are elevated, again supporting infectious etiology of the patient's left upper extremity pain/swelling. Patient's son arrived and I did have a discussion with him regarding her care, and he states that she does not seem all from her baseline, and she typically has more difficulty communicating when sick. He also notes that when her lung sounds bad, it usually an asthma flare as opposed to pneumonia. He states that she typically looks worse than she is as far as her respiratory status goes. Patient care signed out to the oncoming provider, Dr. Patel, at 1515 at shift change. CTA PE protocol for elevated D-dimer and respiratory failure as well as reassessment after interventions pending at time of signout. <Jose Patel MD - Last Filed: 03/08/24 16:46> Vital Signs: 03/08/24 14:23 03/08/24 14:54 03/08/24 15:00 Temperature 98.4 F Temperature Source Oral Pulse Rate 85 87 Pulse Rate [Left Radial] 88 Respiratory Rate 20 16 25 H Blood Pressure 139/69 136/68 Blood Pressure [Right Arm] 146/74 H Blood Pressure Mean Blood Pressure Mean [Right Arm] 98 Blood Pressure Source [Right Arm] Automatic Cuff Blood Pressure Position [Right Arm] Sitting 02 Sat by Pulse Oximetry 92 L 97 96 Oxygen Delivery Method Room Air Nasal Cannula Nasal Cannula Oxygen Flow Rate (LPM) 2 2 03/08/24 15:15 03/08/24 15:30 03/08/24 16:00 Temperature Temperature Source Pulse Rate 84 84 88 Pulse Rate [Left Radial] Respiratory Rate 23 23 18 Blood Pressure 130/75 142/75 H Blood Pressure [Right Arm] Blood Pressure Mean 97 Blood Pressure Mean [Right Arm] Blood Pressure Source [Right Arm] Blood Pressure Position [Right Arm] 02 Sat by Pulse Oximetry 100 100 100 Oxygen Delivery Method Nasal Cannula Oxygen Flow Rate (LPM) 2 03/08/24 16:30 Temperature Temperature Source Pulse Rate 91 H Pulse Rate [Left Radial] Respiratory Rate 18 Blood Pressure 114/48 L Blood Pressure [Right Arm] Blood Pressure Mean 70 Blood Pressure Mean [Right Arm] Blood Pressure Source [Right Arm] Blood Pressure Position [Right Arm] 02 Sat by Pulse Oximetry 93 L Oxygen Delivery Method Oxygen Flow Rate (LPM) Lab Data Lab results reviewed: Yes I reviewed the patient's lab results. Lab Results 03/08/24 14:35: WBC 10.4, RBC 4.09 L, Hgb 11.4 L, Hct 35.9 L, MCV 87.8, MCH 27.9, MCHC 31.8, RDW 17.0, Plt Count 296, MPV 10.4, Neut % (Auto) 59.0, Lymph % (Auto) 22.7, Lyon % (Auto) 12.7 H, Eos % (Auto) 4.7, Baso % (Auto) 0.5, Neut # (Auto) 6.1, Lymph # (Auto) 2.4, [place] # (Auto) 1.3 H, Eos # (Auto) 0.5 H, Baso # (Auto) 0.1, D-Dimer 1.15 H, Sodium 141, Potassium 4.0, Chloride 104, Carbon Dioxide 31 H, Anion Gap 10.0, BUN 23 H, Creatinine 0.90, Estimated Creat Clear 53, Estimated GFR 60, Est GFR ( Amer) 72, Glucose 121 H, Lactate 1.1, Calcium 8.8, Magnesium 2.1, Total Bilirubin 0.2, AST 37 H, ALT 21, Alkaline Phosphatase 116, Troponin I < 0.01, C-Reactive Protein 131.2 H, NT-Pro-B Natriuret Pep 929 H, Total Protein 6.4, Albumin 3.2 L, Globulin 3.2, Albumin/Globulin Ratio 1.0 L, Procalcitonin 0.188, TSH 2.18 03/08/24 14:44: VBG pH 7.41, VBG pCO2 41.3, VBG pO2 96.1 H, VBG HCO3 25.7, VBG Total CO2 26.9, VBG O2 Saturation 97.1 H, VBG Base Excess 1.0, VBG Lactic Acid 1.1 03/08/24 14:47: Urine Color Yellow, Urine Appearance Clear, Urine pH 6.0, Ur Specific [place] >= 1.030, Urine Protein Trace, Urine Glucose (UA) Negative, Urine Ketones Negative, Urine Blood Negative, Urine Nitrate Negative, Urine Bilirubin Negative, Urine Urobilinogen 0.2, Ur Leukocyte Esterase Negative, Urine RBC None, Urine WBC 5-10, Ur Squamous Epith Cells 3-5, Urine Bacteria Trace Orders (Tests/Meds): ED MEDICATIONS Generic Name Dose Route Start Last Admin Trade Name Freq PRN Reason Stop Dose Admin Enoxaparin Sodium 80 mg 03/08/24 16:45 Enoxaparin 100mg/Ml Syringe 1 mg/kg (80 mg) 04/07/24 16:44 SUBCUT Q12H [facility] Ceftriaxone Sodium 1 gm/ 50 mls @ 100 mls/hr 03/08/24 16:37 Sodium Chloride IV 03/08/24 17:06 ONCE ONE Vancomycin HCl 2,000 mg/ 250 mls @ 125 mls/hr 03/08/24 16:45 Sodium Chloride IV 03/08/24 18:44 ONCE ONE Miscellaneous 1 each 03/08/24 16:45 Vancomycin Consult Request NOTAPPLIC 04/07/24 16:44 CONSULT PHARMACY [facility] Sodium Chloride 10 ml 03/08/24 16:09 03/08/24 16:11 Sodium Chloride 0.9% 10ml Syr (Rad Only) IV 04/07/24 16:08 10 ml NEEDED PRN Administration Maintain IV Site Discontinued Medications Generic Name Dose Route Start Last Admin Trade Name Freq PRN Reason Stop Dose Admin Albuterol/Ipratropium 9 ml 03/08/24 14:28 03/08/24 15:02 Ipratropium/Albuterol 3 Ml Neb IH 03/08/24 14:29 9 ml ONCE ONE Administration Magnesium Sulfate 2 gm in 50 mls @ 50 mls/hr 03/08/24 14:42 03/08/24 15:02 Magnesium Sulfate 2gm/50ml Premix IV 03/08/24 15:41 50 mls/hr ONCE ONE Administration Azithromycin 500 mg/ Sodium 250 mls @ 250 mls/hr 03/08/24 16:37 Chloride IV 03/08/24 16:38 ONCE ONE Iopamidol 70 ml 03/08/24 16:09 03/08/24 16:11 Iopamidol-370 (76%);100ml Bottle IV 03/08/24 16:10 70 ml ONCE ONE Administration Methylprednisolone Sodium Succinate 125 mg 03/08/24 14:42 03/08/24 15:02 Methylprednisolone Sod Succ 125mg Vial IV 03/08/24 14:43 125 mg ONCE ONE Administration Sodium Chloride 50 ml 03/08/24 16:09 03/08/24 16:10 0.9 % Sodium Chloride 50 Ml Vial IV 03/08/24 16:10 50 ml ONCE ONE Administration ORDERS Category Date Time Status CT angio chest PE protocol Stat Cat Scan 03/08/24 15:19 Completed CXR --portable [XR chest portable] Stat Exams 03/08/24 14:26 Completed Elbow XR left mininum 3 views [XR elbow LT min 3V] Stat Exams 03/08/24 15:13 Completed Forearm XR left 2 views [XR forearm LT 2V] Stat Exams 03/08/24 15:13 Completed POCUS Point of Care (ER Only) Stat Exams 03/08/24 14:50 Taken Wrist XR left minimum 3 views [XR wrist LT min 3V] Stat Exams 03/08/24 15:13 Completed BNP [NT Pro Brain Natriuretic Pep.] Stat Lab 03/08/24 14:35 Completed CRP [C-Reactive Protein] Stat Lab 03/08/24 14:35 Completed Complete Blood Count Auto Diff Stat Lab 03/08/24 14:35 Completed Comprehensive Metabolic Panel Stat Lab 03/08/24 14:35 Completed D-Dimer Stat Lab 03/08/24 14:35 Completed Full Resp Panel w/COVID ([facility]) Routine Lab 03/08/24 16:43 Ordered HIV Combo Stat Lab 03/08/24 14:35 Received Hepatitis C Ab Qual. W/ RFX Stat Lab 03/08/24 14:35 Received Lactic Acid Stat Lab 03/08/24 14:35 Completed Magnesium Stat Lab 03/08/24 14:35 Completed Procalcitonin Stat Lab 03/08/24 14:35 Completed TSH [Thyroid Stimulating Hormone] Stat Lab 03/08/24 14:35 Completed Trop I [Troponin I] Stat Lab 03/08/24 14:35 Completed Troponin I Q3H Lab 03/08/24 17:30 Ordered Troponin I Q3H Lab 03/08/24 20:30 Ordered UA [Urinalysis and Microscopic] Stat Lab 03/08/24 14:47 Completed Blood Culture Stat Micro 03/08/24 14:38 Received Urine Culture Stat Micro 03/08/24 14:50 Received VBG [Venous Blood Gas] Stat RT 03/08/24 14:44 Completed Medical Decision Narrative: In summary, this patient is a 83-year-old female presenting to the Emergency Department for evaluation of increased work of breathing and redness, warmth, and swelling of her left upper extremity with recent initiation of treatment for cellulitis. Differential diagnoses considered include but are not limited to cellulitis, sepsis, pneumonia, PE, asthma exacerbation, respiratory failure. Ruling out the most morbid conditions drove assessment. It should be noted patient's history includes asthma, hypertension, hyperlipidemia, hypothyroidism which may or may not be at goal therapy. This complicates all aspects of care by increasing patient's risk for morbidity. I reviewed patient's past medical records and noted most recent evaluation which was from the senior living visit November 2023. I also reviewed the packet that came with her and noted that she is currently on Keflex to treat the cellulitis of her left upper extremity. On exam, the patient is ill-appearing, diaphoretic, and in mild respiratory distress. She has wheezing audible from across the room. She is in acute respiratory failure requiring 2 L nasal cannula. She has redness, warmth, and tenderness of her left upper extremity but all compartments are soft and she is neurovascularly intact distally. No open wounds. Workup included broad lab evaluation to evaluate for infectious, metabolic, cardiac causes of the patient's symptoms including blood cultures, troponins, BNP. I also obtained a chest x-ray. Given the redness, warmth, and swelling of her left upper extremity as well as the respiratory failure, I did order a D-dimer to risk stratify for DVT/ PE, however I feel infection is much more likely given current clinical presentation. I cannot use PERC criteria to exclude given the patient's age greater than 50. I had an interactive discussion with EMS who brought the patient to obtain history, as detailed in HPI. EKG obtained is reassuring without acute ST changes concerning for ischemia. Interventions included DuoNebs x 3, IV methylprednisolone, and IV magnesium with concern for asthma with acute exacerbation and acute respiratory distress. I performed a DVT ultrasound and soft tissue ultrasound of the left upper extremity and noted cobblestoning consistent with cellulitis, however I did not see a large focal abscess, subcutaneous gas, or evidence of DVT. Patient did have significant pain with range of motion of the left upper extremity, so I did order x-rays of the left elbow, forearm, wrist. Initial labs are significant for elevated D-dimer at 1.15. CBC demonstrates a mild anemia at 11.4 from a baseline of 13.8. Patient's white blood cell count is not significantly elevated at 10.4. Chemistry demonstrates no significant changes from the patient's baseline. Her inflammatory markers are elevated, again supporting infectious etiology of the patient's left upper extremity pain/swelling. Patient's son arrived and I did have a discussion with him regarding her care, and he states that she does not seem all from her baseline, and she typically has more difficulty communicating when sick. He also notes that when her lung sounds bad, it usually an asthma flare as opposed to pneumonia. He states that she typically looks worse than she is as far as her respiratory status goes. Patient care signed out to the oncoming provider, Dr. Patel, at 1515 at shift change. CTA PE protocol for elevated D-dimer and respiratory failure as well as reassessment after interventions pending at time of signout. Reassessment this is Dr. Patel took over from Dr. Morales following outpatient CT PE. I personally interpreted the patient's CT scan and I do not appreciate a pulmonary embolism there is some atelectasis versus pneumonia on the right dependent areas of the lung. With her respiratory symptoms we will go ahead and treat for possible infectious etiologies and azithromycin and Rocephin have been administered. Additionally with a left upper extremity swelling and erythema and tenderness we will treat this as cellulitis particularly with Dr. Morales seeing cobblestoning on the bedside ultrasound and no definitive DVT. However radiology called me regarding the PE study and stated that they do feel that there is a filling defect consistent with a pulmonary embolism therefore we will further anticoagulate with Lovenox. I discussed this with the patient's son who is at the bedside and he is agreeable. I also spoke to hospital medicine who agreed to admit the patient for worsening encephalopathy on top of her chronic mental status in addition to cellulitis versus left upper extremity DVT and pulmonary embolism. Procedures <Delia Morales, DO - Last Filed: 03/08/24 15:20> Limited Ultrasound Findings:: Limited soft tissue ultrasound Indication: Left upper extremity swelling, redness, pain Identified structures: Location: Left upper extremity soft tissue Findings: Cobblestoning consistent with cellulitis, no obvious subcutaneous air, no obvious foreign body or abscess Impression: Cellulitis of soft tissue Images were saved to permanent archive The study was technically adequate Soft Tissue CPT Codes: CPT Upper extremity: 29019-61 This study was performed by me, and I personally interpreted all images/videos. Based on my clinical judgement, these images were adequate and did not necessitate further imaging. Interpretation:: Limited DVT ultrasound Indication: Limited compression ultrasonography of the left upper extremity was performed to evaluate for non-compressibility of the deep veins in the patient. The ultrasound was performed with the following indications, as noted in the H&P: Left arm pain and swelling Identified structures: Left [Ulnar vein, radial vein, cephalic vein, basilic vein, axillary vein.] Findings: Upper extremity: Left UV good compressibility Left RV: Good compressibility Left Cephalic vein: Good compressibility Left Basilic vein: Good compressibility Left Axillary vein: Good compressibility Impression: Normal left upper extremity DVT ultrasound Images were saved to permanent archive The study was technically adequate [id number] This study was performed by me, and I personally interpreted all images/videos. Based on my clinical judgement, these images were adequate and did not necessitate further imaging. Critical Care <Delia Morales DO - Last Filed: 03/08/24 15:20> Critical Care Time Critical Care Time: Yes Attestation: On 03/08/24, the high probability of a clinically significant, sudden or life threatening deterioration of the following system(s) required my full and direct attention, intervention and personal management. The time I documented below is in addition to time spent performing reported procedures but includes the following listed in this critical care notation. Total Time Total Critical Care Time: 30 <Jose Patel MD - Last Filed: 03/08/24 16:46> Total Time Total Critical Care Time: 35
[2024-03-08 14:45] LABS: Lactate Venous 1.1 mmol/L (0.4-2.0); VBG HCO3 25.7 mmol/L (23-30); VBG Oxygen Saturation 97.1 % (50-70); VBG PCO2 41.3 mmol/L (35-51); VBG PH 7.41 mmol/L (7.31-7.41); VBG PO2 96.1 mmol/L (28-40); VBG Total CO2 26.9 mmol/L (23-27)
[2024-03-08 14:49] LABS: Basophils # 0.1 K/mm3 (0-0.2); Basophils % 0.5 % (0.1-2.0); Eosinophils # 0.5 K/mm3 (0.0-0.4); Eosinophils % 4.7 % (0.1-12.0); Hematocrit 35.9 % (37.0-47.0); Hemoglobin 11.4 g/dL (12.2-16.2); Lymphocytes # 2.4 K/mm3 (0.7-4.5); Lymphocytes % 22.7 % (10-50); Mean Corpuscular HGB Conc 31.8 g/dL (31.8-35.4); Mean Corpuscular Hemoglobin 27.9 pg (27.0-31.2); Mean Corpuscular Volume 87.8 fl (81-99); Mean Platelet Volume 10.4 fl (7.4-10.4); Monocytes # 1.3 K/mm3 (0.1-1.0); Monocytes % 12.7 % (1.7-9.3); Neutrophils # 6.1 K/mm3 (1.8-7.8); Platelet Count 296 K/mm3 (142-424); Red Blood Count 4.09 M/mm3 (4.20-5.40); White Blood Count 10.4 K/mm3 (4.8-10.8)
[2024-03-08 14:53] LABS: Microscopic, Urine URINE MICROSCOPIC (MICROSCOPIC)
[2024-03-08] MEDS: IPRATROPIUM/ALBUTEROL 3 ML NEB 9 ML IH (15:02)
[2024-03-08] MEDS: METHYLPREDNISOLONE SOD SUCC 125MG VIAL 125 MG IV (15:02)
[2024-03-08] MEDS: MAGNESIUM SULFATE IN WATER 2 GM/50 ML PIGGYBACK IV (15:02)
[2024-03-08 15:06] LABS: Alanine Aminotransferase 21 U/L (12-78); Albumin Level 3.2 g/dl (3.5-5.0); Alkaline Phosphatase 116 U/L (38-126); Aspartate Amino Transferase 37 U/L (14-36); Bilirubin,Total 0.2 mg/dl (0.2-1.3); Blood Urea Nitrogen 23 mg/dl (7-17); Calcium 8.8 mg/dl (8.4-10.2); Carbon Dioxide 31 mmol/L (22.0-30.0); Chloride 104 mmol/L (98-107); Creatinine Clearance Estimated 53 mL/min (50-200); Estimated Glomerular Filt Rate 60 ml/min (>60); GFR (African American) 72 ML/MIN (>60); Globulin 3.2 g/dL (1.3-3.2); Glucose 121 mg/dl (74-100); Lactic Acid 1.1 mmol/L (0.7-2.1); Sodium 141 mmol/L (136-145); Total Protein,Serum 6.4 g/dl (6.3-8.2)
[2024-03-08 15:11] LABS: C-Reactive Protein 131.2 mg/L (0-4); D-Dimer 1.15 ug/mL (0.0-0.5)
--- NOTE | 2024-03-08 15:13 | XR_ITS ---
PROCEDURE INFORMATION: Exam: XR Left Forearm Exam date and time: 03/08/2024 4:14 PM Age: 83 years old Clinical indication: Other: Pain, limited rom TECHNIQUE: Imaging protocol: Radiologic exam of the left forearm. Views: 2 views. Total images: 2 COMPARISON: CR XR FOREARM LT 2V 03/08/2024 4:14 PM FINDINGS: Bones/joints: No evidence of acute fracture or dislocation. Soft tissues: Soft tissues are within normal limits. IMPRESSION: No evidence of acute fracture or dislocation.
--- NOTE | 2024-03-08 15:13 | XR_ITS ---
PROCEDURE INFORMATION: Exam: XR Left Elbow Exam date and time: 03/08/2024 4:14 PM Age: 83 years old Clinical indication: Other: Pain, limited rom TECHNIQUE: Imaging protocol: Radiologic exam of the left elbow. Views: 3 or more views. Total images: 3 COMPARISON: CR XR ELBOW LT MIN 3V 03/08/2024 4:14 PM FINDINGS: Bones/joints: No evidence of acute fracture or dislocation. Soft tissues: Soft tissues are within normal limits. IMPRESSION: No evidence of acute fracture or dislocation.
--- NOTE | 2024-03-08 15:13 | XR_ITS ---
PROCEDURE INFORMATION: Exam: XR Left Wrist Exam date and time: 03/08/2024 4:14 PM Age: 83 years old Clinical indication: Other: Pain, limited rom TECHNIQUE: Imaging protocol: Radiologic exam of the left wrist. Views: 3 or more views. Total images: 3 COMPARISON: CR XR FOREARM LT 2V 03/08/2024 4:14 PM FINDINGS: Bones/joints: Cystic changes noted within the proximal 1st metacarpal with moderate degenerative changes of the 1st carpometacarpal joint. No evidence of acute fracture or dislocation. Soft tissues: Mild soft tissue swelling. IMPRESSION: 1. Cystic changes noted within the proximal 1st metacarpal with moderate degenerative changes of the 1st carpometacarpal joint. 2. Mild soft tissue swelling. 3. No evidence of acute fracture or dislocation.
--- NOTE | 2024-03-08 15:19 | CT_ITS ---
PROCEDURE INFORMATION: Exam: CTA Chest With Contrast Exam date and time: 03/08/2024 4:09 PM Age: 83 years old Clinical indication: Other: Resp failure, elevated d-dimer TECHNIQUE: Imaging protocol: Computed tomographic angiography of the chest with contrast. Exam focused on the arteries. 3D rendering (Not supervised by radiologist): MIP and/or 3D reconstructed images were created by the technologist. Total images: 795 Radiation optimization: All CT scans at this facility use at least one of these dose optimization techniques: automated exposure control; mA and/or kV adjustment per patient size (includes targeted exams where dose is matched to clinical indication); or iterative reconstruction. Contrast material: ISO 370; Contrast volume: 70 ml; Contrast route: INTRAVENOUS (IV); COMPARISON: CR XR CHEST PORTABLE 03/08/2024 2:36 PM FINDINGS: Pulmonary arteries: Filling defect is present (series 1003, image 94 through 99) within the pulmonary artery to the right middle lobe consistent with pulmonary embolism. Aorta: Unremarkable. No aortic aneurysm. No aortic dissection. Lungs: Atelectatic changes noted within the right middle lobe. Granulomatous calcification noted within the left lung. Atelectatic changes left lung base. Pleural spaces: Unremarkable. No pneumothorax. No pleural effusion. Heart: No evidence of right heart strain. Heart size is within normal limits. Lymph nodes: Unremarkable. No enlarged lymph nodes. Diaphragm: There is nonspecific elevation of the right hemidiaphragm. Bones/joints: The thoracic spine demonstrates mild degenerative changes at multiple levels. Soft tissues: Unremarkable. IMPRESSION: 1. Filling defect within the pulmonary artery to the right middle lobe consistent with pulmonary embolism. 2. Atelectatic changes noted within the right middle lobe. 3. No evidence of right heart strain.
[2024-03-08 15:21] LABS: NT Pro Brain Natriuretic Pep. 929 pg/mL (0-450); Troponin I < 0.01 ng/ml (0.00-0.034)
[2024-03-08 15:25] LABS: Procalcitonin 0.188 ng/mL (0.0-2.0)
[2024-03-08 15:35] LABS: Appearance,Urine CLEAR (Clear); Bilirubin,Urine Negative (Negative); Blood, Urine Negative (Negative); Color,Urine YELLOW (Yellow); Glucose,Urine (UA) Negative (Negative); Ketones,Urine Negative (Negative); Leukocyte Esterase,Urine Negative (Negative); Nitrate,Urine Negative (Negative); Protein,Urine TRACE (Negative); Specific Gravity, Urine >= 1.030 (1.005-1.030); Urobilinogen,Urine 0.2 EU/dl (0.2)
[2024-03-08 15:38] LABS: Magnesium 2.1 mg/dl (1.6-2.3)
[2024-03-08 15:49] LABS: Bacteria,Urine Trace /lpf
--- NOTE | 2024-03-08 16:01 | PC.NURSE ---
pt transported to radiology via stretcher
[2024-03-08 16:04] LABS: Thyroid Stimulating Hormone 2.18 uIU/mL (0.465-4.68)
[2024-03-08] MEDS: 0.9 % SODIUM CHLORIDE 50 ML VIAL IV (16:10)
[2024-03-08] MEDS: IOPAMIDOL-370 (76%);100ML BOTTLE 70 ML IV (16:11)
[2024-03-08] MEDS: SODIUM CHLORIDE 0.9% 10ML SYR (RAD ONLY) 10 ML IV (16:11)
--- NOTE | 2024-03-08 16:20 | PC.NURSE ---
pt returned from radiology
--- NOTE | 2024-03-08 16:32 | PC.NURSE ---
dr east is speaking to [employer]ad
--- NOTE | 2024-03-08 16:35 | PC.NURSE ---
dr east at bedside
--- NOTE | 2024-03-08 16:40 | PC.NURSE ---
dr east is speaking to hospitalist at this time
[2024-03-08] MEDS: AZITHROMYCIN 500 MG in 0.9 % SODIUM CHLORIDE 250 ML 250 MG IV (16:46)
[2024-03-08] MEDS: ENOXAPARIN 100MG/ML SYRINGE 80 MG SUBCUT (16:46)
[2024-03-08] MEDS: CEFTRIAXONE SODIUM 1 GM in 0.9 % SODIUM CHLORIDE 50 ML IV (16:46)
[2024-03-08 17:04] LABS: Adenovirus,PCR Not Detected (NotDetected); Bordetella Pertussis Not Detected (NotDetected); Chlamydophila Pneumoniae, PCR Not Detected (NotDetected); Coronavirus 19, PCR Not Detected (NotDetected); Coronavirus 229E Not Detected (NotDetected); Coronavirus NL63 Not Detected (NotDetected); Coronavirus OC43 Not Detected (NotDetected); Coronovirus HKU1,PCR Not Detected (NotDetected); Human Metapneumovirus Not Detected (NotDetected); Influenza A, PCR Not Detected (NotDetected); Influenza AH1, 2009 Not Detected (NotDetected); Influenza AH1, PCR Not Detected (NotDetected); Influenza AH3,PCR Not Detected (NotDetected); Influenza B, PCR Not Detected (NotDetected); Mycoplasma Pneumoniae, PCR Not Detected (NotDetected); Parainfluenza 1, PCR Not Detected (NotDetected); Parainfluenza 2, PCR Not Detected (NotDetected); Parainfluenza 3, PCR Not Detected (NotDetected); Parainfluenza 4, PCR Not Detected (NotDetected); Respiratory Syncytial Virus Not Detected (NotDetected); Rhinovirus/Enterovirus Not Detected (NotDetected)
--- NOTE | 2024-03-08 17:07 | PC.NURSE ---
called report to adrianna roldan
--- NOTE | 2024-03-08 17:19 | EXP.HP ---
History of Present Illness *History of present illness: Adapted from Dr. 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 She arrives from [facility] via EMS. According to nursing facility report that was called, the patient was started on antibiotics for cellulitis at this left upper extremity. They sent a current medication list for the patient, and it looks like the patient was started on Keflex. This was initiated 03/06/2024. According to EMS, they were called to the nursing facility with regards to the patient's wheezing and respiratory difficulties. They note that she was hypoxic on room air requiring 2 L nasal cannula en route. They also note the patient felt very warm and diaphoretic. Patient does not contribute to history given her cognitive impairment. CTA chest in the ED revealed pulmonary embolism in the right middle lobe with no evidence of heart strain. Upon my examination of the patient, she was having spells where she had increased work of breathing with wheezing that self resolved. Oxygen saturation was normal at this time. Case discussed with ED provider and decision was made to admit patient for PE, left arm swelling, and possible asthma exacerbation. [facility] Disclaimer: The information contained in this section may have been updated after the patient was seen, as this information can be updated by other users. Medical History Cerebral infarction due to thrombosis of left middle cerebral artery Polyneuropathy Anxiety Aphasia Dysphasia Family History Other Cancer Coronary artery disease Diabetes Hypertension Social History Smoking Status: Never smoker second hand exposure: No alcohol intake: never substance use type: denies use current occupational status: retired Travel in the last 8 weeks: None household members: none housing: long term caffeine: Yes Have you lived/traveled outside [place] in past 30 days?: No Contact w/someone who lives/traveled outside US past 30 days?: No Exposure to someone with infectious disease in past 14 days?: No Do you have a fever (greater than 100.4 F or 38 C)?: No Have you tested positive for COVID-19: No Exposed to someone with COVID-19 in past 14 days?: No Do you have a sore throat?: No Do you have a cough?: No Do you have any weakness?: No Do you have any diarrhea?: No Are you experiencing any unusual bleeding?: No Do you have any muscle aches/pain?: No Do you have any abdominal pain?: No Are you experiencing loss of taste or smell?: No Other Medical History Have you received the Flu Vaccine for this season: No Have you received the Pneumonia Vaccine: Yes Meds Home Medications and Allergies Home Medications ?Medication ?Instructions ?Recorded ?Confirmed ?Type montelukast 10 mg tablet 10 mg PO HS 01/05/21 03/08/24 History levothyroxine 25 mcg tablet 25 mcg PO DAILY 09/03/21 03/08/24 History ropinirole 0.25 mg tablet 0.25 mg PO HS 09/03/21 03/08/24 History albuterol sulfate 90 mcg/actuation 2 puff inhalation Q4HP PRN Asthma 01/30/22 03/08/24 History aerosol inhaler (ProAir HFA) multivitamin 1 tab PO DAILY 01/30/22 03/08/24 History aspirin 81 mg chewable tablet 81 mg PO DAILY 10/16/22 03/08/24 History atorvastatin 40 mg tablet 40 mg PO HS 10/16/22 03/09/24 History acetaminophen 500 mg tablet 500 mg PO Q6HP PRN Pain or fever 10/17/22 03/08/24 History metoprolol succinate 25 mg capsule 25 mg PO DAILY #30 ea 10/17/22 03/08/24 Rx sprinkle, ext. release 24 hr polyethylene glycol 3350 17 gram 17 g PO DAILY 10/17/22 03/08/24 History oral powder packet brimonidine 0.1 % eye drops 1 drp ophthalmic (eye) BID 11/15/22 03/09/24 History (Alphagan P) docusate sodium 100 mg capsule 100 mg PO DAILY 11/15/22 03/08/24 History (Colace) menthol 0.44 %-zinc oxide 20.6 % 1 applic topical QID PRN MOISTURE 11/15/22 03/08/24 History topical ointment (Calmoseptine) omeprazole 20 mg capsule,delayed 20 mg PO DAILY 11/15/22 03/08/24 History release lisinopril 10 mg tablet 10 mg PO DAILY #90 tabs 05/28/23 03/08/24 Rx clopidogrel 75 mg tablet (Plavix) 75 mg PO DAILY #90 tabs 05/29/23 03/08/24 Rx tramadol 50 mg tablet 50 mg PO QID pain #120 tabs 12/16/23 03/08/24 Rx nystatin 100,000 unit/gram topical 100,000 unit topical BID 03/08/24 03/08/24 History powder ondansetron 4 mg disintegrating 4 mg PO Q6HP PRN Nausea 03/08/24 03/09/24 History tablet allopurinol 100 mg tablet 100 mg PO DAILY #30 tabs 03/09/24 Rx amoxicillin 500 mg-potassium 1 tab PO TID 3 days #9 tabs 03/09/24 Rx clavulanate 125 mg tablet (Augmentin) apixaban 5 mg tablet (Eliquis) 5 mg PO BID #30 tabs 03/09/24 Rx apixaban 5 mg tablet (Eliquis) 10 mg (2 x 5 mg) PO BID 9 days #36 03/09/24 Rx tabs aripiprazole 5 mg tablet 2.5 mg PO DAILY 03/09/24 03/09/24 History baclofen 10 mg tablet 10 mg PO HS 03/09/24 03/09/24 History duloxetine 30 mg capsule,delayed 30 mg PO DAILY 03/09/24 03/08/24 History release escitalopram oxalate 5 mg tablet 5 mg PO DAILY 03/09/24 03/09/24 History loratadine 10 mg tablet 10 mg PO DAILY 03/09/24 03/09/24 History prednisone 10 mg tablet 30 mg (3 x 10 mg) PO DAILY 3 days 03/09/24 Rx #9 tabs pregabalin 100 mg capsule 100 mg PO TID 03/09/24 03/09/24 History vit C 250 mg-vit E 90 mg-zinc 40 1 tab PO DAILY 03/09/24 03/09/24 History mg-copper 1 [id number] capsule (PreserVision AREDS-2) New Prescriptions to Start Prescriptions: allopurinol [place] amoxicillin-pot clavulanate [Augmentin] [place] apixaban [Eliquis] [place] apixaban [Eliquis] [place] prednisone [place] Allergies Allergy/AdvReac Type Severity Reaction Status Date / Time Sulfa (Sulfonamide Allergy Mild unkno Verified 03/08/24 15:06 Antibiotics) (SULFA (SULFONAMIDE ANTIBIOTICS)) Exam Data for Last 24 hours Vital signs and Labs for Last 24 Hours: Temp Pulse Resp BP Pulse Ox O2 Del Method O2 Flow Rate 98.0 F 72 20 130/67 94 L Nasal Cannula 2 03/08/24 17:08 03/08/24 17:08 03/08/24 17:08 03/08/24 17:08 03/08/24 17:00 03/08/24 17:08 03/08/24 17:08 Laboratory Results - last 24 hr 03/08/24 14:35: WBC 10.4, RBC 4.09 L, Hgb 11.4 L, Hct 35.9 L, MCV 87.8, MCH 27.9, MCHC 31.8, RDW 17.0, Plt Count 296, MPV 10.4, Neut % (Auto) 59.0, Lymph % (Auto) 22.7, [place] % (Auto) 12.7 H, Eos % (Auto) 4.7, Baso % (Auto) 0.5, Neut # (Auto) 6.1, Lymph # (Auto) 2.4, [place] # (Auto) 1.3 H, Eos # (Auto) 0.5 H, Baso # (Auto) 0.1, D-Dimer 1.15 H, Sodium 141, Potassium 4.0, Chloride 104, Carbon Dioxide 31 H, Anion Gap 10.0, BUN 23 H, Creatinine 0.90, Estimated Creat Clear 53, Estimated GFR 60, Est GFR ( Amer) 72, Glucose 121 H, Lactate 1.1, Calcium 8.8, Magnesium 2.1, Total Bilirubin 0.2, AST 37 H, ALT 21, Alkaline Phosphatase 116, Troponin I < 0.01, C-Reactive Protein 131.2 H, NT-Pro-B Natriuret Pep 929 H, Total Protein 6.4, Albumin 3.2 L, Globulin 3.2, Albumin/Globulin Ratio 1.0 L, Procalcitonin 0.188, TSH 2.18 03/08/24 14:44: VBG pH 7.41, VBG pCO2 41.3, VBG pO2 96.1 H, VBG HCO3 25.7, VBG Total CO2 26.9, VBG O2 Saturation 97.1 H, VBG Base Excess 1.0, VBG Lactic Acid 1.1 03/08/24 14:47: Urine Color Yellow, Urine Appearance Clear, Urine pH 6.0, Ur Specific [place] >= 1.030, Urine Protein Trace, Urine Glucose (UA) Negative, Urine Ketones Negative, Urine Blood Negative, Urine Nitrate Negative, Urine Bilirubin Negative, Urine Urobilinogen 0.2, Ur Leukocyte Esterase Negative, Urine RBC None, Urine WBC 5-10, Ur Squamous Epith Cells 3-5, Urine Bacteria Trace I & O for Last 24 hours: Intake & Output 03/05/24 03/06/24 03/07/24 03/08/24 23:59 23:59 23:59 23:59 Weight 81.556 kg Constitutional Constitutional: no acute distress Comments: Pleasantly demented. *Routine HEENT Exam Head: Present normocephalic Eye: Present EOMI and PERRL ENT: Present mucous membranes moist *Routine Neck Exam Neck: Present supple; Absent lymphadenopathy *Routine Respiratory Exam Respiratory: Present CTA bilaterally *Routine Cardiovascular Exam Cardiovascular: Present RRR *Routine Abdominal Exam Abdominal: Present soft and normoactive bowel sounds; Absent tenderness *Routine Rectal Exam Rectal:: deferred *Routine Genitalia Exam Genitalia:: deferred *Routine Extremities Exam Extremities: Absent cyanosis, clubbing or edema *Routine Skin Exam Skin: Present warm; Absent rash *Routine Neurological Exam Neurological: Present alert Comments: Right upper and lower extremity residual weakness from CVA. 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 She arrives from [facility] via EMS. According to nursing facility report that was called, the patient was started on antibiotics for cellulitis at this left upper extremity. They sent a current medication list for the patient, and it looks like the patient was started on Keflex. This was initiated 03/06/2024. According to EMS, they were called to the nursing facility with regards to the patient's wheezing and respiratory difficulties. They note that she was hypoxic on room air requiring 2 L nasal cannula en route. They also note the patient felt very warm and diaphoretic. Patient does not contribute to history given her cognitive impairment. CTA chest in the ED revealed pulmonary embolism in the right middle lobe with no evidence of heart strain. Upon my examination of the patient, she was having spells where she had increased work of breathing with wheezing that self resolved. Oxygen saturation was normal at this time. Case discussed with ED provider and decision was made to admit patient for PE, left arm swelling, and possible asthma exacerbation. #Right middle lobe pulmonary embolism #Acute hypoxic respiratory failure ? CTA revealed PE in the right middle lobe. Currently requiring 2 L nasal cannula. ? Does have intermittent episodes of increased work of breathing with wheezing that self resolved. - Continue therapeutic Lovenox. #Left upper extremity swelling, erythema ? Seems to be more consistent with DVT than cellulitis. ? Follow-up venous Doppler to rule out DVT. ? Ceftriaxone until then. #History of CVA with right-sided weakness #Functional paraplegic ? Cognitive decline since stroke. Bedbound at long term. - Aspirin, statin. FULL CODE Lovenox 40mg
--- NOTE | 2024-03-08 17:40 | PC.NURSE ---
pt arrived on floor by stretcher from ed
[2024-03-08 18:55] LABS: Troponin I < 0.01 ng/ml (0.00-0.034)
[2024-03-08] MEDS: PANTOPRAZOLE 40MG TABLET 40 MG PO (20:00)
[2024-03-08] MEDS: TRAMADOL 50MG TABLET 50 MG PO (20:00)
[2024-03-08] MEDS: PREGABALIN 100MG CAPSULE 100 MG PO (20:01)
[2024-03-08] MEDS: ROPINIROLE HCL 0.25 MG TABLET PO (20:01)
[2024-03-08 20:49] LABS: Troponin I < 0.01 ng/ml (0.00-0.034)
[2024-03-09] VITALS (8 sets, daily range): BP systolic 102–144; BP diastolic 50–70; PULSE 70–92; RESP 16–20; TEMP 36.6–36.7; O2SAT 95–99; BMI 30.2
[2024-03-09 04:21] LABS: HIV Combo NEGATIVE (Negative)
[2024-03-09 04:28] LABS: Hepatitis C Ab Qual. W/ RFX NEGATIVE (Negative)
[2024-03-09] MEDS: ENOXAPARIN 100MG/ML SYRINGE 80 MG SUBCUT (05:52)
--- NOTE | 2024-03-09 06:53 | PC.NURSE ---
Pt. alert to self, cognitive impairment at baseline from previous CVA. Pt.sleept well overnight. Ortiz cath in place. Pt. on 2 liters O2 via NC. VSS. call light in reach but pt. not able to use, checked frequently for any needs.
[2024-03-09 07:39] LABS: Basophils % 0.2 % (0.1-2.0); Lymphocytes # 1.6 K/mm3 (0.7-4.5); Lymphocytes % 19.2 % (10-50); Mean Corpuscular HGB Conc 30.6 g/dL (31.8-35.4); Mean Corpuscular Hemoglobin 26.7 pg (27.0-31.2); Mean Corpuscular Volume 87.4 fl (81-99); Mean Platelet Volume 10.3 fl (7.4-10.4); Monocytes # 0.4 K/mm3 (0.1-1.0); Monocytes % 4.8 % (1.7-9.3); Neutrophils # 6.1 K/mm3 (1.8-7.8); Neutrophils % 75.4 % (37.0-80.0); Platelet Count 313 K/mm3 (142-424); Red Blood Count 4.12 M/mm3 (4.20-5.40); Red Cell Distribution Width 16.7 % (11.5-17.5); White Blood Count 8.1 K/mm3 (4.8-10.8)
[2024-03-09 07:59] LABS: Alanine Aminotransferase 22 U/L (12-78); Albumin Level 3.2 g/dl (3.5-5.0); Alkaline Phosphatase 123 U/L (38-126); Aspartate Amino Transferase 32 U/L (14-36); Blood Urea Nitrogen 23 mg/dl (7-17); Calcium 9.2 mg/dl (8.4-10.2); Carbon Dioxide 29 mmol/L (22.0-30.0); Chloride 105 mmol/L (98-107); Creatinine Clearance Estimated 54 mL/min (50-200); Estimated Glomerular Filt Rate 68 ml/min (>60); GFR (African American) 82 ML/MIN (>60); Globulin 3.3 g/dL (1.3-3.2); Glucose 154 mg/dl (74-100); Magnesium 2.8 mg/dl (1.6-2.3); Sodium 141 mmol/L (136-145); Total Protein,Serum 6.5 g/dl (6.3-8.2)
[2024-03-09 08:07] LABS: Bilirubin,Total 0.1 mg/dl (0.2-1.3)
[2024-03-09 08:19] LABS: Anion Gap 11.3 mEq/L (5-15); Potassium 4.3 mmoL/L (3.5-5.1)
--- NOTE | 2024-03-09 08:21 | HMH.PHAINT1 ---
Pharmacy Intervention Comments: HOME MEDICATION LIST VERIFIED USING LIST FROM [facility]
--- NOTE | 2024-03-09 08:48 | DIET.NUTRFU ---
Verified diet with nursing staff- low sodium, CCD, regular thin. She does take gravy with meats and supervision with meals. Added to order. Wt hx indicates gaining weight. Nursing at indicated she has improved since RD last saw her in 2022
--- NOTE | 2024-03-09 09:10 | SW/DCPLANNER ---
Addendum entered by Carmen Emanuel 03/09/24 10:38: I have updated Rhonda garg/ [facility] that patient could return today I[facility] level of care. Original Note: Patient currently resides at [facility] I[facility] level of care. Updated patient information has been faxed to Angelika garg/ [facility]. I will continue to follow up until patient is medically stable for discharge. Discharge date is unknown at this time.
[2024-03-09] MEDS: BRIMONIDINE 0.2% OPHTH SOLN 5ML BOTTLE OP (09:24)
[2024-03-09] MEDS: LISINOPRIL 10MG TABLET 10 MG PO (09:25)
[2024-03-09] MEDS: LEVOTHYROXINE 25MCG (0.025MG) TAB 25 MCG PO (09:25)
[2024-03-09] MEDS: CITALOPRAM 10MG TABLET 10 MG PO (09:25)
[2024-03-09] MEDS: DOCUSATE SODIUM 100 MG CAPSULE PO (09:25)
[2024-03-09] MEDS: METOPROLOL SUCCINATE XL 25MG TABLET 25 MG PO (09:25)
[2024-03-09] MEDS: CLOPIDOGREL 75MG TAB 75 MG PO (09:25)
[2024-03-09] MEDS: ASPIRIN 81MG CHEWABLE TABLET 81 MG PO (09:25)
[2024-03-09] MEDS: ARIPiprazole 10MG TABLET 2.5 MG PO (09:26)
[2024-03-09] MEDS: POLYETHYLENE GLYCOL 3350 17 GM PACKET PO (09:26)
[2024-03-09] MEDS: PREGABALIN 100MG CAPSULE 100 MG PO (09:47)
[2024-03-09] MEDS: TRAMADOL 50MG TABLET 50 MG PO ×2 (09:48→15:02)
[2024-03-09] MEDS: CEFTRIAXONE SODIUM 1 GM in 0.9 % SODIUM CHLORIDE 50 ML IV (11:44)
--- NOTE | 2024-03-09 12:07 | CT_ITS ---
FINAL REPORT TECHNIQUE: Thin section axial images were obtained of the left forearm after the administration of contrast. This study was performed with techniques to keep radiation doses as low as reasonably achievable, (ALARA). Individualized dose reduction techniques using automated exposure control or adjustment of mA and/or kV according to the patient's size were employed. CLINICAL HISTORY: Erythema, swelling COMPARISON: None FINDINGS: There is subcutaneous soft tissue edema posterior to the olecranon. Subcutaneous soft tissue edema continues along the posterior margin of the ulna, probably related to cellulitis. There is no evidence of abscess. No bony erosions are seen. IMPRESSION: Subcutaneous soft tissue edema posterior to the olecranon along the posterior margin of the ulna consistent with cellulitis. Reviewed, Interpreted and Dictated by Jose Allred MD Transcribed by Kamille Purvis Authenticated and [facility][1]
[2024-03-09] MEDS: SODIUM CHLORIDE 0.9% 10ML SYR (RAD ONLY) 10 ML IV (13:15)
[2024-03-09] MEDS: IOPAMIDOL-370 (76%);100ML BOTTLE 150 ML IV (13:15)
[2024-03-09 13:52] LABS: C-Reactive Protein 153.3 mg/L (0-4)
[2024-03-09 14:34] LABS: Uric Acid 7.7 mg/dl (2.5-6.2)
--- NOTE | 2024-03-09 14:45 | P.DS_ITS ---
General Admission date:: 03/08/24 HPI HPI HPI: Adapted from Dr. 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 She arrives from [facility] via EMS. According to nursing facility report that was called, the patient was started on antibiotics for cellulitis at this left upper extremity. They sent a current medication list for the patient, and it looks like the patient was started on Keflex. This was initiated 03/06/2024. According to EMS, they were called to the nursing facility with regards to the patient's wheezing and respiratory difficulties. They note that she was hypoxic on room air requiring 2 L nasal cannula en route. They also note the patient felt very warm and diaphoretic. Patient does not contribute to history given her cognitive impairment. CTA chest in the ED revealed pulmonary embolism in the right middle lobe with no evidence of heart strain. Upon my examination of the patient, she was having spells where she had increased work of breathing with wheezing that self resolved. Oxygen saturation was normal at this time. Case discussed with ED provider and decision was made to admit patient for PE, left arm swelling, and possible asthma exacerbation. 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 She arrives from [facility] via EMS. According to nursing facility report that was called, the patient was started on antibiotics for cellulitis at this left upper extremity. They sent a current medication list for the patient, and it looks like the patient was started on Keflex. This was initiated 03/06/2024. According to EMS, they were called to the nursing facility with regards to the patient's wheezing and respiratory difficulties. They note that she was hypoxic on room air requiring 2 L nasal cannula en route. They also note the patient felt very warm and diaphoretic. Patient does not contribute to history given her cognitive impairment. CTA chest in the ED revealed pulmonary embolism in the right middle lobe with no evidence of heart strain. Upon my examination of the patient, she was having spells where she had increased work of breathing with wheezing that self resolved. Oxygen saturation was normal at this time. Case discussed with ED provider and decision was made to admit patient for PE, left arm swelling, and possible asthma exacerbation. #Right middle lobe pulmonary embolism #Acute hypoxic respiratory failure ? CTA revealed PE in the right middle lobe. Currently requiring 2 L nasal cannula, will wean as tolerated. ? Does have intermittent episodes of increased work of breathing with wheezing when sleeping that self resolved. Will benefit from outpatient sleep study. - Transition to Eliquis 10 mg twice daily for 9 more days then 5 mg thereafter, discontinued Lovenox. ? Referred to pulmonology for further evaluation and management of PE and possible sleep apnea. #Left upper extremity swelling, erythema #Suspected cellulitis versus gout ? At this time no leukocytosis, tachycardia, fevers. No purulent drainage. ? Left upper extremity venous Doppler negative for DVT. ? Left upper extremity CT suggestive of cellulitis. ? Clinically improved with broad-spectrum antibiotics, weaned to ceftriaxone. But also given steroids for suspected gout. Uric acid elevated to 7.7. ? Discharged with Augmentin for 3 more days to cover cellulitis. ? Discharged with prednisone 30 mg for 3 more days. ? Start allopurinol 100 mg once erythema resolves. #History of CVA with right-sided weakness with contractures ? Cognitive decline since stroke. Bedbound at [facility]. ? Continue stroke care, aspirin, Plavix, statin. ? Resume home baclofen, pregabalin. #Hypothyroidism ? Resume home levothyroxine 25 mcg. #Hypertension ? Resume home regimen. #Restless leg syndrome ? Resume home regimen. Exam Data for Last 24 hours Vital signs and Labs for Last 24 Hours: Temp Pulse Resp BP Pulse Ox O2 Del Method O2 Flow Rate 97.9 F 70 20 102/50 L 98 Nasal Cannula 2 03/09/24 11:17 03/09/24 12:00 03/09/24 07:32 03/09/24 11:17 03/09/24 11:17 03/09/24 13:00 03/09/24 13:00 Laboratory Results - last 24 hr 03/08/24 14:35: WBC 10.4, RBC 4.09 L, Hgb 11.4 L, Hct 35.9 L, MCV 87.8, MCH 27.9, MCHC 31.8, RDW 17.0, Plt Count 296, MPV 10.4, Neut % (Auto) 59.0, Lymph % (Auto) 22.7, [place] % (Auto) 12.7 H, Eos % (Auto) 4.7, Baso % (Auto) 0.5, Neut # (Auto) 6.1, Lymph # (Auto) 2.4, [place] # (Auto) 1.3 H, Eos # (Auto) 0.5 H, Baso # (Auto) 0.1, D-Dimer 1.15 H, Sodium 141, Potassium 4.0, Chloride 104, Carbon Dioxide 31 H, Anion Gap 10.0, BUN 23 H, Creatinine 0.90, Estimated Creat Clear 53, Estimated GFR 60, Est GFR ( Amer) 72, Glucose 121 H, Lactate 1.1, Calcium 8.8, Magnesium 2.1, Total Bilirubin 0.2, AST 37 H, ALT 21, Alkaline Phosphatase 116, Troponin I < 0.01, C-Reactive Protein 131.2 H, NT-Pro-B Natriuret Pep 929 H, Total Protein 6.4, Albumin 3.2 L, Globulin 3.2, Albumin/Globulin Ratio 1.0 L, Procalcitonin 0.188, TSH 2.18, HCV Ab LADY w/Rflx PCR Qn Negative, HIV Ag/Ab Combo Qual Negative 03/08/24 14:44: VBG pH 7.41, VBG pCO2 41.3, VBG pO2 96.1 H, VBG HCO3 25.7, VBG Total CO2 26.9, VBG O2 Saturation 97.1 H, VBG Base Excess 1.0, VBG Lactic Acid 1.1 03/08/24 14:47: Urine Color Yellow, Urine Appearance Clear, Urine pH 6.0, Ur Specific [place] >= 1.030, Urine Protein Trace, Urine Glucose (UA) Negative, Urine Ketones Negative, Urine Blood Negative, Urine Nitrate Negative, Urine Bilirubin Negative, Urine Urobilinogen 0.2, Ur Leukocyte Esterase Negative, Urine RBC None, Urine WBC 5-10, Ur Squamous Epith Cells 3-5, Urine Bacteria Trace 03/08/24 17:01: Chlamy pneumoniae PCR Not detected, Adenovirus (PCR) Not detected, B. pertussis DNA (PCR) Not detected, Coronavirus OC43 (PCR) Not detected, Coronavirus HKU1 (PCR) Not detected, Coronavirus 229E (PCR) Not detected, SARS-CoV-2 (PCR) Not detected, Coronavirus NL63 (PCR) Not detected, Human Metapneumovir PCR Not detected, Influenza A (H1) PCR Not detected, Influ A (H1N1/09) PCR Not detected, Influenza A (H3) PCR Not detected, Influenza Type A (PCR) Not detected, Influenza Type B (PCR) Not detected, M. pneumoniae (PCR) Not detected, Parainfluenza 1 (PCR) Not detected, Parainfluenza 2 (PCR) Not detected, Parainfluenza 3 (PCR) Not detected, Parainfluenza 4 (PCR) Not detected, RSV (PCR) Not detected, Entero/Rhino (PCR) Not detected 03/08/24 18:05: Troponin I < 0.01 03/08/24 20:05: Troponin I < 0.01 03/09/24 07:24: WBC 8.1, RBC 4.12 L, Hgb 11.0 L, Hct 36.0 L, MCV 87.4, MCH 26.7 L, MCHC 30.6 L, RDW 16.7, Plt Count 313, MPV 10.3, Neut % (Auto) 75.4, Lymph % (Auto) 19.2, [place] % (Auto) 4.8, Eos % (Auto) 0.0 L, Baso % (Auto) 0.2, Neut # (Auto) 6.1, Lymph # (Auto) 1.6, [place] # (Auto) 0.4, Eos # (Auto) 0.0, Baso # (Auto) 0.0, Sodium 141, Potassium 4.3, Chloride 105, Carbon Dioxide 29, Anion Gap 11.3, BUN 23 H, Creatinine 0.80, Estimated Creat Clear 54, Estimated GFR 68, Est GFR ( Amer) 82, Glucose 154 H D, Uric Acid 7.7 H, Calcium 9.2, Magnesium 2.8 H D, Total Bilirubin 0.1 L, AST 32, ALT 22, Alkaline Phosphatase 123, Total Protein 6.5, Albumin 3.2 L, Globulin 3.3 H, Albumin/Globulin Ratio 1.0 L 03/09/24 : C-Reactive Protein 153.3 H I & O for Last 24 hours: Intake & Output 03/06/24 03/07/24 03/08/24 03/09/24 23:59 23:59 23:59 23:59 Intake Total 740 / 740 Output Total 350 / 350 Balance 390 / 390 Weight 81.556 kg 82.463 kg Results Data Completed and Pending Labs on day of discharge: Labs from last 24 hours 03/09/24 03/09/24 03/08/24 Unknown 07:24 20:05 WBC 8.1 RBC 4.12 L Hgb 11.0 L Hct 36.0 L MCV 87.4 MCH 26.7 L MCHC 30.6 L RDW 16.7 Plt Count 313 MPV 10.3 Neut % (Auto) 75.4 Lymph % (Auto) 19.2 [place] % (Auto) 4.8 Eos % (Auto) 0.0 L Baso % (Auto) 0.2 Neut # (Auto) 6.1 Lymph # (Auto) 1.6 [place] # (Auto) 0.4 Eos # (Auto) 0.0 Baso # (Auto) 0.0 D-Dimer VBG pH VBG pCO2 VBG pO2 VBG HCO3 VBG Total CO2 VBG O2 Saturation VBG Base Excess VBG Lactic Acid Sodium 141 Potassium 4.3 Chloride 105 Carbon Dioxide 29 Anion Gap 11.3 BUN 23 H Creatinine 0.80 Estimated Creat Clear 54 Estimated GFR 68 Est GFR ( Amer) 82 Glucose 154 H D Lactate Uric Acid 7.7 H Calcium 9.2 Magnesium 2.8 H D Total Bilirubin 0.1 L AST 32 ALT 22 Alkaline Phosphatase 123 Troponin I < 0.01 C-Reactive Protein 153.3 H NT-Pro-B Natriuret Pep Total Protein 6.5 Albumin 3.2 L Globulin 3.3 H Albumin/Globulin Ratio 1.0 L Procalcitonin TSH Urine Color Urine Appearance Urine pH Ur Specific [place] Urine Protein Urine Glucose (UA) Urine Ketones Urine Blood Urine Nitrate Urine Bilirubin Urine Urobilinogen Ur Leukocyte Esterase Urine RBC Urine WBC Ur Squamous Epith Cells Urine Bacteria Chlamy pneumoniae PCR Adenovirus (PCR) B. pertussis DNA (PCR) Coronavirus OC43 (PCR) Coronavirus HKU1 (PCR) Coronavirus 229E (PCR) SARS-CoV-2 (PCR) Coronavirus NL63 (PCR) HCV Ab LADY w/Rflx PCR Qn HIV Ag/Ab Combo Qual Human Metapneumovir PCR Influenza A (H1) PCR Influ A (H1N1/09) PCR Influenza A (H3) PCR Influenza Type A (PCR) Influenza Type B (PCR) M. pneumoniae (PCR) Parainfluenza 1 (PCR) Parainfluenza 2 (PCR) Parainfluenza 3 (PCR) Parainfluenza 4 (PCR) RSV (PCR) Entero/Rhino (PCR) 03/08/24 03/08/24 03/08/24 18:05 17:01 14:47 WBC RBC Hgb Hct MCV MCH MCHC RDW Plt Count MPV Neut % (Auto) Lymph % (Auto) [place] % (Auto) Eos % (Auto) Baso % (Auto) Neut # (Auto) Lymph # (Auto) [place] # (Auto) Eos # (Auto) Baso # (Auto) D-Dimer VBG pH VBG pCO2 VBG pO2 VBG HCO3 VBG Total CO2 VBG O2 Saturation VBG Base Excess VBG Lactic Acid Sodium Potassium Chloride Carbon Dioxide Anion Gap BUN Creatinine Estimated Creat Clear Estimated GFR Est GFR ( Amer) Glucose Lactate Uric Acid Calcium Magnesium Total Bilirubin AST ALT Alkaline Phosphatase Troponin I < 0.01 C-Reactive Protein NT-Pro-B Natriuret Pep Total Protein Albumin Globulin Albumin/Globulin Ratio Procalcitonin TSH Urine Color Yellow Urine Appearance Clear Urine pH 6.0 Ur Specific [place] >= 1.030 Urine Protein Trace Urine Glucose (UA) Negative Urine Ketones Negative Urine Blood Negative Urine Nitrate Negative Urine Bilirubin Negative Urine Urobilinogen 0.2 Ur Leukocyte Esterase Negative Urine RBC None Urine WBC 5-10 Ur Squamous Epith Cells 3-5 Urine Bacteria Trace Chlamy pneumoniae PCR Not detected Adenovirus (PCR) Not detected B. pertussis DNA (PCR) Not detected Coronavirus OC43 (PCR) Not detected Coronavirus HKU1 (PCR) Not detected Coronavirus 229E (PCR) Not detected SARS-CoV-2 (PCR) Not detected Coronavirus NL63 (PCR) Not detected HCV Ab LADY w/Rflx PCR Qn HIV Ag/Ab Combo Qual Human Metapneumovir PCR Not detected Influenza A (H1) PCR Not detected Influ A (H1N1/09) PCR Not detected Influenza A (H3) PCR Not detected Influenza Type A (PCR) Not detected Influenza Type B (PCR) Not detected M. pneumoniae (PCR) Not detected Parainfluenza 1 (PCR) Not detected Parainfluenza 2 (PCR) Not detected Parainfluenza 3 (PCR) Not detected Parainfluenza 4 (PCR) Not detected RSV (PCR) Not detected Entero/Rhino (PCR) Not detected 03/08/24 03/08/24 14:44 14:35 WBC 10.4 RBC 4.09 L Hgb 11.4 L Hct 35.9 L MCV 87.8 MCH 27.9 MCHC 31.8 RDW 17.0 Plt Count 296 MPV 10.4 Neut % (Auto) 59.0 Lymph % (Auto) 22.7 [place] % (Auto) 12.7 H Eos % (Auto) 4.7 Baso % (Auto) 0.5 Neut # (Auto) 6.1 Lymph # (Auto) 2.4 [place] # (Auto) 1.3 H Eos # (Auto) 0.5 H Baso # (Auto) 0.1 D-Dimer 1.15 H VBG pH 7.41 VBG pCO2 41.3 VBG pO2 96.1 H VBG HCO3 25.7 VBG Total CO2 26.9 VBG O2 Saturation 97.1 H VBG Base Excess 1.0 VBG Lactic Acid 1.1 Sodium 141 Potassium 4.0 Chloride 104 Carbon Dioxide 31 H Anion Gap 10.0 BUN 23 H Creatinine 0.90 Estimated Creat Clear 53 Estimated GFR 60 Est GFR ( Amer) 72 Glucose 121 H Lactate 1.1 Uric Acid Calcium 8.8 Magnesium 2.1 Total Bilirubin 0.2 AST 37 H ALT 21 Alkaline Phosphatase 116 Troponin I < 0.01 C-Reactive Protein 131.2 H NT-Pro-B Natriuret Pep 929 H Total Protein 6.4 Albumin 3.2 L Globulin 3.2 Albumin/Globulin Ratio 1.0 L Procalcitonin 0.188 TSH 2.18 Urine Color Urine Appearance Urine pH Ur Specific [place] Urine Protein Urine Glucose (UA) Urine Ketones Urine Blood Urine Nitrate Urine Bilirubin Urine Urobilinogen Ur Leukocyte Esterase Urine RBC Urine WBC Ur Squamous Epith Cells Urine Bacteria Chlamy pneumoniae PCR Adenovirus (PCR) B. pertussis DNA (PCR) Coronavirus OC43 (PCR) Coronavirus HKU1 (PCR) Coronavirus 229E (PCR) SARS-CoV-2 (PCR) Coronavirus NL63 (PCR) HCV Ab LADY w/Rflx PCR Qn Negative HIV Ag/Ab Combo Qual Negative Human Metapneumovir PCR Influenza A (H1) PCR Influ A (H1N1/09) PCR Influenza A (H3) PCR Influenza Type A (PCR) Influenza Type B (PCR) M. pneumoniae (PCR) Parainfluenza 1 (PCR) Parainfluenza 2 (PCR) Parainfluenza 3 (PCR) Parainfluenza 4 (PCR) RSV (PCR) Entero/Rhino (PCR) Meds Home Medications and Allergies Home Medications ?Medication ?Instructions ?Recorded ?Confirmed ?Type montelukast 10 mg tablet 10 mg PO HS 01/05/21 03/08/24 History levothyroxine 25 mcg tablet 25 mcg PO DAILY 09/03/21 03/08/24 History ropinirole 0.25 mg tablet 0.25 mg PO HS 09/03/21 03/08/24 History albuterol sulfate 90 mcg/actuation 2 puff inhalation Q4HP PRN Asthma 01/30/22 03/08/24 History aerosol inhaler (ProAir HFA) multivitamin 1 tab PO DAILY 01/30/22 03/08/24 History aspirin 81 mg chewable tablet 81 mg PO DAILY 10/16/22 03/08/24 History atorvastatin 40 mg tablet 40 mg PO HS 10/16/22 03/09/24 History acetaminophen 500 mg tablet 500 mg PO Q6HP PRN Pain or fever 10/17/22 03/08/24 History metoprolol succinate 25 mg capsule 25 mg PO DAILY #30 ea 10/17/22 03/08/24 Rx sprinkle, ext. release 24 hr polyethylene glycol 3350 17 gram 17 g PO DAILY 10/17/22 03/08/24 History oral powder packet brimonidine 0.1 % eye drops 1 drp ophthalmic (eye) BID 11/15/22 03/09/24 History (Alphagan P) docusate sodium 100 mg capsule 100 mg PO DAILY 11/15/22 03/08/24 History (Colace) menthol 0.44 %-zinc oxide 20.6 % 1 applic topical QID PRN MOISTURE 11/15/22 03/08/24 History topical ointment (Calmoseptine) omeprazole 20 mg capsule,delayed 20 mg PO DAILY 11/15/22 03/08/24 History release lisinopril 10 mg tablet 10 mg PO DAILY #90 tabs 05/28/23 03/08/24 Rx clopidogrel 75 mg tablet (Plavix) 75 mg PO DAILY #90 tabs 05/29/23 03/08/24 Rx tramadol 50 mg tablet 50 mg PO QID pain #120 tabs 12/16/23 03/08/24 Rx nystatin 100,000 unit/gram topical 100,000 unit topical BID 03/08/24 03/08/24 History powder ondansetron 4 mg disintegrating 4 mg PO Q6HP PRN Nausea 03/08/24 03/09/24 History tablet allopurinol 100 mg tablet 100 mg PO DAILY #30 tabs 03/09/24 Rx amoxicillin 500 mg-potassium 1 tab PO TID 3 days #9 tabs 03/09/24 Rx clavulanate 125 mg tablet (Augmentin) apixaban 5 mg tablet (Eliquis) 5 mg PO BID #30 tabs 03/09/24 Rx apixaban 5 mg tablet (Eliquis) 10 mg (2 x 5 mg) PO BID 9 days #36 03/09/24 Rx tabs aripiprazole 5 mg tablet 2.5 mg PO DAILY 03/09/24 03/09/24 History baclofen 10 mg tablet 10 mg PO HS 03/09/24 03/09/24 History duloxetine 30 mg capsule,delayed 30 mg PO DAILY 03/09/24 03/08/24 History release escitalopram oxalate 5 mg tablet 5 mg PO DAILY 03/09/24 03/09/24 History loratadine 10 mg tablet 10 mg PO DAILY 03/09/24 03/09/24 History prednisone 10 mg tablet 30 mg (3 x 10 mg) PO DAILY 3 days 03/09/24 Rx #9 tabs pregabalin 100 mg capsule 100 mg PO TID 03/09/24 03/09/24 History vit C 250 mg-vit E 90 mg-zinc 40 1 tab PO DAILY 03/09/24 03/09/24 History mg-copper 1 [id number] capsule (PreserVision AREDS-2) New Prescriptions to Start Prescriptions: allopurinol Modesto Melton amoxicillin-pot clavulanate [Augmentin] Geronimo,[place]esto apixaban [Eliquis] Greonimo,[place] apixaban [Eliquis] Geronimo,[place] prednisone Geronimo,[place] Allergies Allergy/AdvReac Type Severity Reaction Status Date / Time Sulfa (Sulfonamide Allergy Mild unkno Verified 03/08/24 15:06 Antibiotics) (SULFA (SULFONAMIDE ANTIBIOTICS)) Discharge Plan Disposition Patient Disposition: er SNF Condition: Fair Discharge Order Discharge Orders: Discharge Order (Routine); Ordered 03/09/24 Ordered By: Modesto Melton Follow up Plan Follow up with: Jb Blanco [Primary Care Provider] - Enter time for follow up Chikis Venegas MD [Physician] - 03/16/24 Prescriptions/Medication Reconciliation: New Eliquis 5 mg tablet 10 mg PO BID 9 Days Qty: 36 0RF Eliquis 5 mg tablet 5 mg PO BID Qty: 30 0RF Rx Instructions: Take Eliquis 10 mg twice a day for 9 days, then start taking 5 mg twice a day. prednisone 10 mg tablet 30 mg PO DAILY 3 Days Qty: 9 0RF amoxicillin-pot clavulanate [Augmentin] 500-125 mg tablet 1 tab PO TID 3 Days Qty: 9 0RF allopurinol 100 mg tablet 100 mg PO DAILY Qty: 30 0RF Rx Instructions: Start taking 1 week after gout flare resolved. Continued albuterol sulfate [ProAir HFA] 90 mcg/actuation HFA aerosol inhaler 2 puff inhalation Q4HP PRN (Reason: Asthma) multivitamin Tablet 1 tab PO DAILY Alphagan P 0.1 % drops 1 drp ophthalmic (eye) BID menthol-zinc oxide [Calmoseptine] 0.44-20.6 % ointment 1 applic topical QID PRN (Reason: MOISTURE) docusate sodium [Colace] 100 mg capsule 100 mg PO DAILY omeprazole 20 mg capsule,delayed release(DR/EC) 20 mg PO DAILY lisinopril 10 mg tablet 10 mg PO DAILY Qty: 90 3RF clopidogrel [Plavix] 75 mg tablet 75 mg PO DAILY Qty: 90 3RF tramadol 50 mg tablet 50 mg PO QID Qty: 120 0RF montelukast 10 MG tablet 10 mg PO HS levothyroxine 25 MCG tablet 25 mcg PO DAILY ropinirole 0.25 MG tablet 0.25 mg PO HS atorvastatin 40 mg tablet 40 mg PO HS aspirin 81 mg tablet,chewable 81 mg PO DAILY polyethylene glycol 3350 17 gram Powder In Packet 17 g PO DAILY acetaminophen 500 mg Tablet 500 mg PO Q6HP PRN (Reason: Pain or fever) metoprolol succinate 25 mg capsule,sprinkle,ER 24hr 25 mg PO DAILY Qty: 30 1RF nystatin 100,000 unit/gram powder 100,000 unit TOPICAL BID Rx Instructions: UNTIL 03/14/24 ondansetron 4 mg Tablet,Disintegrating 4 mg PO Q6HP PRN (Reason: Nausea) loratadine 10 mg Tablet 10 mg PO DAILY aripiprazole 5 mg tablet 2.5 mg PO DAILY escitalopram oxalate 5 mg Tablet 5 mg PO DAILY pregabalin 100 mg capsule 100 mg PO TID PreserVision AREDS-2 250-90-40-1 mg Capsule 1 tab PO DAILY baclofen 10 mg tablet 10 mg PO HS duloxetine 30 mg capsule,delayed release(DR/EC) 30 mg PO DAILY Problem Reconciliation Problems Reviewed?: Yes Patient Discharge Instructions Patient Instructions: Pulmonary Embolism, Cellulitis, Encephalopathy Print Language: Belarusian Providers Primary Care Provider: Jb Blanco Admbentley Provider: Modesto Melton Attending Provider: Modesto Melton
[2024-03-09 14:59] LABS: Erythrocyte Sedimentation Rate 131 mm/hr (0-30)
[2024-03-09] MEDS: METHYLPREDNISOLONE SOD SUCC 40MG VIAL 40 MG IV (14:59)
--- NOTE | 2024-03-09 19:26 | CA_ITS ---
FINAL REPORT TECHNIQUE: Graded compression, spectral analysis and ultrasound images of the venous system of the upper extremity were obtained. CLINICAL HISTORY: PE, encephalopathy, left arm edema, right sided weakness, HTN, HLD, hx CVA, IV currently in left arm. FINDINGS: The jugular vein, subclavian vein, axillary vein, brachial vein, cephalic vein and basilic venous system are fully compressible and demonstrate no evidence of thrombosis. IMPRESSION: No evidence of thrombosis of the venous system of the left upper extremity. Reviewed, Interpreted and Dictated by Jose Allred MD Transcribed by Geno Cortés Authenticated and [facility]
== END 2024-03-09 17:32 ==
LOC: ER 16:39 → 2ND 17:06
PROVIDERS: Ophthalmology; Student in an Organized Health Care Education/Training Program; Admitting Provider Student in an Organized Health Care Education/Training Program; Emergency Provider Emergency Medicine; PCP Family Medicine; Visit Provider Student in an Organized Health Care Education/Training Program
DX: I26.99 Other pulmonary embolism without acute cor pulmonale (principal); L03.114 Cellulitis of left upper limb; B96.89 Other specified bacterial agents as the cause of diseases classified elsewhere; I69.051 Hemiplegia and hemiparesis following nontraumatic subarachnoid hemorrhage affecting right dominant side; E03.9 Hypothyroidism, unspecified; G25.81 Restless legs syndrome; E78.5 Hyperlipidemia, unspecified; Z79.02 Long term (current) use of antithrombotics/antiplatelets; Z79.51 Long term (current) use of inhaled steroids; Z79.890 Hormone replacement therapy; Z79.01 Long term (current) use of anticoagulants; Z79.899 Other long term (current) drug therapy
CPT/HCPCS: 36415; 51702; 71045; 71275; 73080; 73090; 73110; 73201; 80053; 81001; 82803; 83605; 83735; 83880; 84145; 84443; 84484; 84550; 85025; 85378; 85651; 86140; 86803; 87040; 87086; 87389; 87633; 93005; 93971; 99291; G0378; J0456; J0696; J1650; J2919; J3475; J7050; J7620; Q9967

== ENCOUNTER 2024-08-20 10:29 | Outpatient (CLI) | payer MEDICARE, SELFPAY ==
--- OUTSIDE RECORDS SUMMARY | 2024-08-20 10:35 | XMS_ITS | Clinical Summary ---
Author Organization [facility] Address [address] [place] [address] Phone Care Team Providers Care Registered Art Therapist Name Role Phone Unavailable Primary Care Provider Unavailabl e Social History Tobacco Use Types Packs/Day Years Used Date Smoking Tobacco: Never Assessed Comments Unknown Sex and Gender Information Value Date Recorded Sex Assigned at Not on file Legal Sex Female 8:22 AM EDT Gender Identity Not on file Sexual Orientation Not on file Plan of Treatment Health Maintenance Due Date Last Done Comments Annual Wellness Exam 1941 Zoster (1 of 2) 1988 Bone Density Screening 05/08/2003 RSV or 60+ (1 - 1-dose 75+ series) 2013 Pneumococcal Vaccine 50+ (2 of 2 - PCV) 07/19/2013 07/19/2012, 02/19/2008 COVID-19 Vaccine ( season) 2023 02/14/2022, 02/07/2021 Influenza Vaccine (#1) 2024 , 11/24/2019, 01/20/2019, Additional history exists DTaP/TDaP/Td (2 - Td or Tdap) 12/17/2026 12/17/2016 Hepatitis B Vaccine Aged Out No longe r eligible based on patient's age to complete this topic Meningococcal B Vaccine Aged Out No l onger eligible based on patient's age to complete this topic
--- OUTSIDE RECORDS SUMMARY | 2024-08-20 10:35 | XMS_ITS | Clinical Summary ---
Author Organization [facility] Address [address] [place] [address] Care Team Providers Care Upward Bound Director Name Role Phone Martinez Gutierrez MD Primary Care Provider + [phone] Allergies Active Allergy Reactions Criticality Noted Date Comments Latex Rash Low 09/01/2022 Wound Dressing Adhesive Rash Low 09/01/2022 Medications amLODIPine (Norvasc) 5 MG tablet Take 1 tablet (5 mg) by mouth 1 (one) time each day. Active baclofen (Lioresal) 10 MG tablet Take 1 tablet (10 mg) by mouth every night. Active bimatoprost (Lumigan) 0.01 % ophthalmic solution Administer 1 drop into both eyes every night. Active brimonidine (AlphaGAN P) 0.1 % ophthalmic solution Administer 1 drop into both eyes 2 (two) times a day. Active DULoxetine (Cymbalta) [address] capsule Take 1 capsule (30 mg) by mouth 1 (one) time each day. Do not crush or chew. Active DULoxetine (Cymbalta) [address] capsule Take 1 capsule (60 mg) by mouth 1 (one) time each day. Do not crush or chew. Active HYDROcodone-vadim taminophen ([place]) 7.5-325 MG tablet Take 1 tablet (7.5 mg of hydrocodone) by mouth 3 (three) times a day if needed for severe pain. Active levothyroxine (Synthroid, Levoxyl) 25 MCG tablet Take 1 tablet (25 mcg) by mouth 1 (one) time each day before breakfast. Active lisinopril 20 MG tablet Take 1 tablet (20 mg) by mouth 1 (one) time each day. Active montelukast (Singulair) 10 MG tablet Take 1 tablet (10 mg) by mouth every night. Active omeprazole (PriLOSEC) [address] capsule Take 1 capsule (20 mg) by mouth 1 (one) time each day. Do not crush or chew. Active pregabalin (Lyrica) 100 MG capsule Take 1 capsule (100 mg) by mouth 3 (three) times a day. Active rOPINIRole (Requip) 0.25 MG tablet Take 1 tablet (0.25 mg) by mouth 1 (one) time each day. Active zolpidem (Ambien) 5 MG tablet Take 1 tablet (5 mg) by mouth at night if needed for sleep. Active multivitamin-mi nerals-folic acid-coenzyme q10 (Preservision AREDS 2) capsule Take 2 capsules by mouth 1 (one) time each day. Active atorvastatin (Lipitor) 40 MG tablet Take 1 tablet (40 mg) by mouth 1 (one) time each day. 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 Immunizations Immunization Administration Dates Next Due Influenza, seasonal, injectable 11/18/2012 Pneumococcal Polysaccharide PPV23 07/19/2012 Family History Medical History Relation Name Comments Coronary artery disease Other 1 Other cancer Other 2 Relation Name Status Comments Other 1 Other 2 Social History Tobacco Use Types Packs/Day Years Used Date Smoking Tobacco: Never Smokeless Tobacco: Never Tobacco Cessation:Counseling Given: Not Answered Alcohol Use Standard Drinks/Week Comments Never 0 (1 standard drink = 0.6 oz pur e alcohol) Comments Unknown Sex and Gender Information Value Date Recorded Sex Assigned at Not on file Legal Sex Female 8:49 PM EDT Gender Identity Not on file Sexual Orientation Not on file Last Filed Vital Signs Vital Sign Reading Time Taken Comments Blood Pressure 132/65 09/08/2022 7:51 AM EDT Pulse 98 09/08/2022 7:51 AM EDT Temperature 37.2 C (99 F) 09/08/2022 7:51 AM EDT Respiratory Rate 21 09/08/2022 7:51 AM EDT Oxygen Saturation 90% 09/08/2022 7:51 AM EDT Inhaled Oxygen Concentration - - Weight 91.2 kg (201 lb 1 oz) 09/07/2022 6:00 AM EDT Height 162.6 cm (5' 4 ) 08/31/2022 11:11 PM EDT Body Mass Index 34.51 08/31/2022 11:11 PM EDT Plan of Treatment Health Maintenance Due Date Last Done Comments [facility]-Bone Density Scan 1938 [facility]-Depression Screening 1938 [facility]-Medicare Annual Wellness (AWV) 1938 [facility]-Infant/Child/Adol SDOH Screenings 1938 [facility]-Obesity Intervention 1944 [facility]- SDOH Screenings 1956 [facility]-Adult SDOH Screenings 1956 [facility]-Zoster Vaccines (1 of 2) 1957 [facility]-RSV Vaccine: 60+ Years or (1 - 1-dose 75+ series) 2013 [facility]-Pneumococcal Vaccine: 50+ Years (3 of 3 - PCV) 07/19/2013 07/19/2012, 02/19/2008 [id number] Vaccine (4 - season) 2023 02/14/2022, 02/07/2021, 08/04/2020 [facility]-Influenza Vaccine (#1) 10/19/202412/06, 12/17/2016, 12/14/2015, Additional history exists [facility]-DTaP,Tdap,and Td Vaccines (2 - Td or Tdap) 12/17/2026 12/17/2016 [facility]-Diabetes: Hemoglobin A1C Discontinued 08/31/2022 HPV Vaccines Aged Out No longer eligi ble based on patient's age to complete this topic [facility]-HIB Vaccines Aged Out No longer e ligible based on patient's age to complete this topic [facility]-Hepatitis A Vaccines Aged Out No longer eligible based on patient's age to complete this topic [facility]-IPV Vaccines Aged Out No longer e ligible based on patient's age to complete this topic [facility]-Rotavirus Vaccines Aged Out No lo nger eligible based on patient's age to complete this topic Procedures Procedure Name Priority Date/Time Associated Diagnosis Comments HEMOGLOBIN A1C Add-On 08/31/2022 5:45 PM EDT from Last 3 Months or Most Recently Relevant to Health Maintenance Results * (ABNORMAL) Hemoglobin A1c (08/31/2022 5:45 PM EDT) Hemoglobin A1c 6.1(H) <5.7 % 09/01/2022 1:40 PM EDT [facility] Blood Venous blood specimen / Unknown Venipuncture / Unknown 08/31/2022 5:45 PM EDT 08/31/2022 5:59 PM EDT Narrative [facility] - 09/01/2022 1:40 PM EDT HA1C Interpretive Data: Diagnosis of Diabetes: Diabetic > or = 6.5% Pre-diabetic 5.7 to 6.4% Non-diabetic < or = 5.6% Glycemic Targets for Type I and Type II Diabetics: Non- Adults <7.0% Adults <6.0% Children and Adolescents <7.5% Source: [place] Diabetes Association. Standards of medical care in diabetes,2017. Diabetes Care.2017:40 (suppl 1):S1-S135. HbA1c assay performed by an ion-exchange chromatography method that is certified traceable to the DCCT. us Shannan Shah MD LAB BLOOD ORDERABLES Final Resu lt [facility] [address] [place] [address] from Last 3 Months or Most Recently Relevant to Health Maintenance [place] [address] AARP Advance Directives Documents on File Type Date Recorded Patient Chief Procurement Officer Expl anation Advance Directives and Livin g Will 09/09/2022 7:44 AM Power of Drill Punch Operator 09/09/2022 7:43 AM * Full Code (Latest Code Status on File) Date Activated Date Inactivated Comments 08/31/2022 11:29 PM 09/08/2022 3:39 PM Question Answer Comments Patient has decision-making capacity? No Healthcare Surrogate: Adult child of the patient Name of Healthcare Surrogate: Duy Rizvi Care Teams Upward Bound Director Relationship Specialty Start Date End Date Martinez Gutierrez MD [address] [facility] [address], [place] [address] PCP - General 07/01/20
--- OUTSIDE RECORDS SUMMARY | 2024-08-20 10:35 | XMS_ITS | Encounter Summary ---
Author Organization [facility] Address [facility] [place] [address] Care Team Providers Care Contact Lens Cutter Name Role Phone Unavailable Primary Care Provider Unavailabl e Encounter Details Date Type Department Care Team (Late st Contact Info) Description 09/09/2022 Lab Requisition [facility] [address] [place] [address] [facility] Encounter for general adult medical examination without abnormal findings Social History Tobacco Use Types Packs/Day Years Used Date Smoking Tobacco: Never Assessed Comments Unknown Sex and Gender Information Value Date Recorded Sex Assigned at Not on file Legal Sex Female 8:22 AM EDT Gender Identity Not on file Sexual Orientation Not on file documented as of this encounter Plan of Treatment Not on file documented as of this encounter Procedures Procedure Name Priority Date/Time Associated Diagnosis Comments CBC Routine 09/09/2022 6:50 AM EDT Encounter for general adult medical examination without abnormal findings COMPREHENSIVE METABOLIC PANEL Routine 09/09/2022 6:50 AM EDT Encounter for general adult medical examination without abnormal findings documented in this encounter Results * (ABNORMAL) CBC (09/09/2022 6:50 AM EDT) WBC 13.5(H) 3.7 - 10.3 x10(3)/mcL 09/09/2022 9:06 AM EDT [facility] RBC 4.48 3.90 - 5.20 x10(6)/mcL 09/09/2022 9:06 AM EDT [facility] Hgb 12.8 11.2 - 15.7 g/dL 09/09/2022 9:06 AM EDT [facility] Hct 39.9 34.0 - 45.0 % 09/09/2022 9:06 AM EDT [facility] MCV 89.1 80.0 - 100.0 fL 09/09/2022 9:06 AM EDT [facility] MCH 28.6 26.0 - 34.0 pg 09/09/2022 9:06 AM EDT [facility] MCHC 32.1 30.7 - 35.5 g/dL 09/09/2022 9:06 AM EDT [facility] RDW 15.4(H) <=14.9 % 09/09/2022 9:06 AM EDT [facility] Platelet 292 155 - 369 x10(3)/mcL 09/09/2022 9:06 AM EDT [facility] MPV 11.3 8.8 - 12.5 fL 09/09/2022 9:06 AM EDT [facility] Blood VENOUS BLOOD / Unknown 09/09/2022 6:50 AM EDT 09/09/2022 8:55 AM EDT [facility] HEMATOLOGY ORDERABLES Final Res ult [facility] [address] [facility] , [place] [address] * (ABNORMAL) COMPREHENSIVE METABOLIC PANEL (09/09/2022 6:50 AM EDT) Sodium 139 136 - 145 mmol/L 09/09/2022 9:31 AM EDT [facility] Potassium 4.5 3.5 - 5.0 mmol/L 09/09/2022 9:31 AM EDT [facility] Chloride 102 98 - 107 mmol/L 09/09/2022 9:31 AM EDT [facility] Total CO2 26 22 - 29 mmol/L 09/09/2022 9:31 AM EDT [facility] Anion Gap 11 7 - 16 mmol/L 09/09/2022 9:31 AM EDT [facility] Calcium 9.2 8.8 - 10.4 mg/dL 09/09/2022 9:31 AM EDT [facility] Glucose Lvl 116(H) 82 - 100 mg/dL 09/09/2022 9:31 AM EDT [facility] BUN 17 8 - 23 mg/dL 09/09/2022 9:31 AM EDT [facility] Creatinine 0.83 0.51 - 1.30 mg/dL 09/09/2022 9:31 AM EDT [facility] Albumin 3.5 3.2 - 4.6 gm/dL 09/09/2022 9:31 AM EDT [facility] Total Protein 5.7(L) 6.4 - 8.3 gm/dL 09/09/2022 9:31 AM EDT [facility] Bili Total 0.5 0.2 - 1.3 mg/dL 09/09/2022 9:31 AM EDT [facility] ALT 22 <=41 U/L 09/09/2022 9:31 AM EDT [facility] AST 23 <=40 U/L 09/09/2022 9:31 AM EDT [facility] Alk Phos 97 36 - 123 U/L 09/09/2022 9:31 AM EDT [facility] eGFR (CKD-EPIcr 2020) 69 >=60 mL/min/1.7 3 m2 09/09/2022 9:31 AM EDT [facility] Comment:Estimated GFR was ca lculated using the CKD-EPIcr (2020) equation refit without race. The equation is recommended by the National Kidney Foundation - [place] Society of Nephrology Task Force. Blood VENOUS BLOOD / Unknown 09/09/2022 6:50 AM EDT 09/09/2022 8:55 AM EDT us [facility] CHEMISTRY ORDERABLES Final Resu lt [facility] [address] [facility] , [place] [address] [facility] [address] [place] [address] documented in this encounter Visit Diagnoses Diagnosis Encounter for general adult medical examination without abnormal findings Routine general medical examination at a health care facility documented in this encounter
--- OUTSIDE RECORDS SUMMARY | 2024-08-20 10:35 | XMS_ITS | Clinical Summary ---
Author Organization [employer] ([place], [place], [place], [place]) Address [address] [place] [address] Care Team Providers Care Internal Communications Manager Name Role Phone Unavailable Primary Care Provider Unavailabl e Social History Tobacco Use Types Packs/Day Years Used Date Smoking Tobacco: Never Assessed Comments Unknown Sex and Gender Information Value Date Recorded Sex Assigned at Female 08/15/2021 12:38 PM CDT Legal Sex Female 12:38 PM CDT Gender Identity Female 08/15/2021 12:38 PM CDT Sexual Orientation Not on file Plan of Treatment Not on file
--- OUTSIDE RECORDS SUMMARY | 2024-08-20 10:35 | XMS_ITS | Referral Summary ---
Author Organization [employer] ([place], [place], [place], [place]) Address [address] [place] [address] Care Team Providers Care Fly Frame Tender Name Role Phone Unavailable Primary Care Provider [...]
[2024-08-20 10:43] VITALS: BMI 31.8
--- NOTE | 2024-08-20 10:57 | PC.NURSE ---
1057-collected type and screen with samantha devries, child's nurse to witness
[2024-08-20 11:12] LABS: Hematocrit 25.3 % (37.0-47.0); Hemoglobin 7.0 g/dL (12.2-16.2)
--- NOTE | 2024-08-20 15:50 | PC.NURSE ---
1400-spoke to gee turner rn that pt has antibodies and blood will have to be ordered by [facility]. notified pt son of situation and he is ok to have her come back 08/21/24 for blood transfusion; called ems for transport; called and gave report to [facility].
--- NOTE | 2024-08-20 15:53 | PC.NURSE ---
1500-pt left with ems with blood band on left wrist both patient,family and facility notified to leave band on pt.
== END 2024-08-20 15:00 | disposition home or self-care (01) ==
LOC: INF 10:31
PROVIDERS: PCP Family Medicine; Visit Provider Family Medicine
DX: D50.9 Iron deficiency anemia, unspecified (principal)
CPT/HCPCS: 85014; 85018; 86850; 86870; G0463

== ENCOUNTER 2024-08-21 11:44 | Outpatient (CLI) | payer MEDICARE, SELFPAY ==
[2024-08-21] VITALS (9 sets, daily range): BP systolic 108–139; BP diastolic 47–80; PULSE 70–81; RESP 18–20; TEMP 36.4–36.9; O2SAT 93–98
--- OUTSIDE RECORDS SUMMARY | 2024-08-21 11:48 | XMS_ITS | Clinical Summary ---
Author Organization [facility] Address [address] [place] [address] Care Team Providers Care Email Marketer Name Role Phone Martinez Gutierrez MD Primary Care Provider + [phone] Allergies Active Allergy Reactions Criticality Noted Date [...] not crush or chew. Active HYDROcodone-vadim taminophen ([place]) 7.5-325 MG tablet Take 1 tablet (7.5 [...] of 3 - PCV) 07/19/2013 07/19/2012, 02/19/2008 [id number] Vaccine (4 - season) 2023 02/14/2022, 02/07/2021, [...] Adults <6.0% Children and Adolescents <7.5% Source: [place] Diabetes Association. Standards of medical care in diabetes,2017. Diabetes Care.2017:40 (suppl 1):S1-S135. HbA1c assay performed by an ion-exchange chromatography method that is certified traceable to the DCCT. us Shannan Shah MD LAB BLOOD ORDERABLES Final Resu lt [facility] [address] [place] [address] from Last 3 Months or Most Recently Relevant to Health Maintenance [place] [address] AARP Advance Directives Documents on File Type Date Recorded Patient Act Tutor Expl anation Advance Directives and Livin g Will 09/09/2022 7:44 AM Power of Tester Sound 09/09/2022 7:43 AM * Full Code (Latest Code Status on File) Date Activated Date Inactivated Comments 08/31/2022 11:29 PM 09/08/2022 3:39 PM Question Answer Comments Patient has decision-making capacity? No Healthcare Surrogate: Adult child of the patient Name of Healthcare Surrogate: Duy Rizvi Care Teams Email Marketer Relationship Specialty Start Date End Date Martinez Gutierrez MD [address] [facility] [address] [address] PCP - General 07/01/20
--- OUTSIDE RECORDS SUMMARY | 2024-08-21 11:48 | XMS_ITS | Clinical Summary ---
Author Organization [facility] Address [address] [place] [address] Phone Care Team Providers Care Residential Green Building Designer Name Role Phone Unavailable Primary Care Provider [...] PCV) 07/19/2013 07/19/2012, 02/19/2008 COVID-19 Vaccine ( - season) 2023 02/14/2022, 02/07/2021 Influenza Vaccine (#1) 2024 , 11/24/2019, 01/20/2019, Additional history exists DTaP/TDaP/Td (2 - Td or Tdap) 12/17/2026 12/17/2016 Hepatitis B Vaccine Aged Out No longe r eligible based on patient's age to complete this topic Meningococcal B Vaccine Aged Out No l onger eligible based on patient's age to complete this topic
--- OUTSIDE RECORDS SUMMARY | 2024-08-21 11:48 | XMS_ITS | Referral Summary ---
Author Organization [employer] ([place], [place], [place], [place]) Address [address] [place] [address] Care Team Providers Care Fruit Packer Name Role Phone Unavailable Primary Care Provider [...]
--- OUTSIDE RECORDS SUMMARY | 2024-08-21 11:48 | XMS_ITS | Encounter Summary ---
Author Organization [facility] Address [facility] [place] [address] Care Team Providers Care Pump Station Operator Name Role Phone Unavailable Primary Care Provider Unavailabl e Encounter Details Date Type Department Care Team (Late st Contact Info) Description 09/09/2022 Lab Requisition [facility] LAB[facility]AT[facility] [address] [place] [address] [facility] Encounter for general adult medical [...] 6:50 AM EDT 09/09/2022 8:55 AM EDT [facility] HEMATOLOGY ORDERABLES Final Res ult [facility] [address] [facility] , [place] [address] * (ABNORMAL) COMPREHENSIVE METABOLIC PANEL (09/09/2022 6:50 [...] 09/09/2022 9:31 AM EDT [facility] Creatinine 0.83 0.51 - 1.30 mg/dL 09/09/2022 9:31 AM EDT [facility] Albumin 3.5 3.2 - 4.6 gm/dL 09/09/2022 9:31 AM EDT [facility] Total Protein 5.7(L) 6.4 - 8.3 gm/dL 09/09/2022 9:31 AM EDT [facility] Bili Total 0.5 0.2 - 1.3 mg/dL 09/09/2022 9:31 AM EDT [facility] ALT 22 <=41 U/L 09/09/2022 9:31 AM EDT [facility] AST 23 <=40 U/L 09/09/2022 9:31 AM EDT [facility] Alk Phos 97 36 - 123 U/L 09/09/2022 9:31 AM EDT [facility] eGFR (CKD-EPIcr 2020) 69 >=60 mL/min/1.7 3 m2 09/09/2022 9:31 AM EDT [facility] Comment:Estimated GFR was ca lculated using the CKD-EPIcr (2020) equation refit without race. The equation is recommended by the National Kidney Foundation - [place] Society of Nephrology Task Force. Blood VENOUS BLOOD / Unknown 09/09/2022 6:50 AM EDT 09/09/2022 8:55 AM EDT us [facility] CHEMISTRY ORDERABLES Final Resu lt [facility] [address] [facility] , [place] [address] [facility] [address] [place] [address] documented in this encounter Visit Diagnoses Diagnosis Encounter for general adult medical examination without abnormal findings Routine general medical examination at a health care facility documented in this encounter
--- OUTSIDE RECORDS SUMMARY | 2024-08-21 11:48 | XMS_ITS | Clinical Summary ---
Author Organization [employer] ([place], [place], [place], [place]) Address [address] [place] [address] Care Team Providers Care Marketing Operations Manager Name Role Phone Unavailable Primary Care [...]
[2024-08-21] MEDS: 0.9 % SODIUM CHLORIDE 250 ML 25 ML IV (12:18)
--- NOTE | 2024-08-21 14:25 | PC.NURSE ---
report called to shruti at [facility]
--- NOTE | 2024-08-21 14:31 | PC.NURSE ---
[facility] notified of transfer to return to [facility]
--- NOTE | 2024-08-21 15:33 | PC.NURSE ---
Pt didn't want to stay for the 1hr post blood vital
== END 2024-08-21 15:00 | disposition home or self-care (01) ==
PROVIDERS: PCP Family Medicine; Visit Provider Family Medicine
DX: D64.9 Anemia, unspecified (principal)
CPT/HCPCS: 36430; J7050; P9016

== ENCOUNTER 2024-11-22 01:47 | Inpatient (IN) | payer MEDICARE, SELFPAY ==
[2024-11-22] VITALS (20 sets, daily range): BP systolic 115–157; BP diastolic 44–74; PULSE 76–95; RESP 12–24; TEMP 36.3–37.1; O2SAT 93–100; BMI 40.3; BMI 30.2
--- NOTE | 2024-11-22 01:51 | XR_ITS ---
PROCEDURE INFORMATION: Exam: XR Chest Exam date and time: 11/22/2024 2:59 AM Age: 84 years old Clinical indication: Other: Severe anemia TECHNIQUE: Imaging protocol: Radiologic exam of the chest. Views: 1 view. COMPARISON: CT ANGIO CHEST PE PROTOCOL 03/08/2024 4:09 PM FINDINGS: Lungs: Pulmonary vascular prominence. Hypoinflation. Left lower lobe airspace opacity may represent atelectasis or infiltrate. Pleural spaces: Unremarkable. No pleural effusion. No pneumothorax. Heart/Mediastinum: Cardiomegaly. Bones/joints: Unremarkable. IMPRESSION: Cardiomegaly. Pulmonary vascular prominence. Hypoinflation. Left lower lobe airspace opacity may represent atelectasis or infiltrate.
--- OUTSIDE RECORDS SUMMARY | 2024-11-22 01:54 | XMS_ITS | Clinical Summary ---
Author Organization [employer] ([place], [place], [place], [place]) Address [address] [place] [address] Care Team Providers Care Flight Attendant/Inflight Manager Name Role Phone Unavailable Primary Care [...]
--- OUTSIDE RECORDS SUMMARY | 2024-11-22 01:54 | XMS_ITS | Referral Summary ---
Author Organization [employer] ([place], [place], [place], [place]) Address [address] [place] [address] Care Team Providers Care Bench Worker Apprentice Name Role Phone Unavailable Primary Care Provider [...]
--- OUTSIDE RECORDS SUMMARY | 2024-11-22 01:54 | XMS_ITS | Clinical Summary ---
Author Organization [facility] Address [address] [place] [address] Care Team Providers Care Pressure Testing Technician Name Role Phone Mallorie Puri MD Primary Care Provider [phone] Allergies Active Allergy Reactions Criticality Noted Date Comments Adhesive Tape Other (See Comments) Medium 08/09/2015 Blisters Sulfa Antibiotics Hives High 08/09/2015 Family History Medical History Relation Name Comments Breast cancer Maternal Grandmother Breast cancer Paternal Grandmother Relation Name Status Comments Maternal Grandmother Paternal Grandmother Diagnos ed in her early 50's. Social History Tobacco Use Types Packs/Day Years Used Date Smoking Tobacco: Never Assessed Abuse Screen Answer Date Recorded Unsafe at Home or Work/School Not on file Feels Threatened by Someone? Not on file 10/2022 Does Anyone Keep You from Co ntacting Others or Doint Things Outside the Home? Not on file 11/26/2022 Physical Sign of Abuse Present Not on file 1 Housing Stability Answer Date Recorded Current Living Arrangements Not on file 10/2022 Potentially Unsafe Housing Conditions Not on kip e 11/26/2022 Family and Community Support Answer Bryan e Recorded Help with Day-to-Day Activities Not on file 11/26/2022 Lonely or Isolated Not on file 11/26/2022 Employment Answer Date Recorded Do you want help finding or keeping work or a arinaa b? Not on file 11/26/2022 Disabilities Answer Date Recorded Concentrating, Remembering, or Making Decisions Difficulty Not on file 11/26/2022 Doing Errands Independently Difficulty Not on fi le 11/26/2022 Education Answer Date Recorded Help with school or training? Not on file Preferred Language Not on file 11/26/2022 Comments No Sex and Gender Information Value Date Recorded Sex Assigned at Not on file Legal Sex Female 11:07 AM EDT Gender Identity Not on file Sexual Orientation Not on file Plan of Treatment Health Maintenance Due Date Last Done Comments ANNUAL PHYSICAL 1940 DXA SCAN 1940 TDAP/TD VACCINES (1 - Tdap) 1957 Pneumococcal Vaccine 50+ (1 of 1 - PCV) 1988 ZOSTER VACCINE (1 of 2) 1988 RSV Vaccine - Adults (1 - 1-dose 75+ series) 4 INFLUENZA VACCINE 09/18/2024 COVID-19 Vaccine ( - 2023- season) 2024 Insurance MEDICARE A & B [employer] OPTIONS Care Teams Pressure Testing Technician Relationship Specialty Start Date End Date Mallorie Puri MD PCP - General Obstetrics and Gynecology 08/05/15
--- OUTSIDE RECORDS SUMMARY | 2024-11-22 01:54 | XMS_ITS ---
Author Organization [facility] Care Team Providers Care Ict Business Analyst Name Role Phone Kate Patel Unavailable Unavailable Jb Blanco Unavailable Unavailable Allergies and adverse reactions Code CodeSystem Substance Reaction Severity StartDate Concern Status [id number] SNOMED CT Sulfa Antibiotics Unknown 03/11/2024 active Care Team Name Role Address Phone Organization Dates Jb Blanco PCP [address] [place] [address] (Office): : [facility] 10/17/2022 - present Kate Moore [address] [place] [address] (Office): : [facility] 10/17/2022 - present Encounters EncounterType Code CodeSystem Description Performer ServiceDe liveryLocation Date Ambulatory Encounter CPT Code = [id number] Disorder of respiratory system [facility] Address: [address] [place] [address], [phone], [place]. 09/27 Ambulatory Encounter CPT Code = [id number] Uncomplicated asthma [facility] Address: [address] [place] [address], [phone], [facility]. 09/27 Ambulatory Encounter CPT Code = [address] Disorder of connective tissue Leigha [facility] Address: [address] [place] [address], [address] [place] [address], [facility]. 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 09/27 Ambulatory Encounter CPT Code = [address] Disorder of immune function [facility]a [facility] Address: [address] [place] [address], [address] [place] [address], [facility]. 09/27 Ambulatory Encounter CPT Code = [address] Aphasia [facility]a [facility] Address: [address] [place] [address], [address] [place] [address], [facility]. 09/27 Ambulatory Encounter CPT Code = [address] Cognitive communication disorder Leigha [facility] Address: [address] [place] [address], [address] [place] [address], [facility]. 09/27 Ambulatory Encounter CPT Code = [address]17[address] Acute hypoxemic respiratory failure [facility]a [facility] Address: [address] [place] [address], [address] [place] [address], [facility]. 09/27 Ambulatory Encounter CPT Code = [address] Muscle atrophy Leigha [facility] Address: [address] [place] [address], [address] [place] [address]. 09/27 Ambulatory Encounter CPT Code = [address] Muscle atrophy Leigha [facility] Address: [address] [place] [address], [address] [place] [address], [facility]. 09/27 Ambulatory Encounter CPT Code = [address] Abnormal gait Leigha [facility] Address: [address] [place] [address], [phone], [facility]. 09/27 Ambulatory Encounter CPT Code = [address] Muscle weakness Leigha [facility] Address: [address] [place] [address], [address] [place] [address]. 09/27 Ambulatory Encounter CPT Code = 26890 [id number] Difficulty walking Leigha [facility] Address: [address] [place] [address], [address] [place] [address], [facility]. 09/27 Ambulatory Encounter CPT Code = [address]12[address] COVID-19 Leigha [facility] Address: [address] [place] [address], [address] [place] [address], [facility]. 09/27 Ambulatory Encounter CPT Code = [address] Muscle atrophy Leigha [facility] Address: [address] [place] [address], [address] [place] [address], [facility]. 09/27 Ambulatory Encounter CPT Code = [address] Major depression, single episode Leigha [facility] Address: [address] [place] [address], [address] [place] [address]. 09/27 Ambulatory Encounter CPT Code = [address] Gout Leigha [facility] Address: [address] [place] [address], [address] [place] [address], [facility]. 09/27 Ambulatory Encounter CPT Code = 18472 [id number] [address]891239 [address] Cellulitis of left upper limb Leigha [facility] Address: [address] [place] [address], [address] [place] [address]. 09/27 Ambulatory Encounter CPT Code = [address] Pulmonary embolism Leigha [facility] Address: [address] [place] [address], [address] [place] [address]. 09/27 Ambulatory Encounter CPT Code = [address] Spasm Leigha [facility] Address: [address] [place] [address], [address] [place] [address], [facility]. 09/27 Ambulatory Encounter CPT Code = [address] Restless legs Leigha [facility] Address: [address] [place] [address], [address] [place] [address]. 09/27 Ambulatory Encounter CPT Code = [address] Primary open angle glaucoma Leigha [facility] Address: [address] [place] [address], [address] [place] [address]. 09/27 Ambulatory Encounter CPT Code = [address] Nonexudative age-related macular degeneration Leigha [facility] Address: [address] [place] [address], [address] [place] [address]. 09/27 Ambulatory Encounter CPT Code = [address] Nervous system and sense organ diseases Leigha [facility] Address: [address] [place] [address], [address] [place] [address]. 09/27 Ambulatory Encounter CPT Code = [address] Hyperlipidemia Leigha [facility] Address: [address] [place] [address], [address] [place] [address]. 09/27 Ambulatory Encounter CPT Code = [address] Seasonal allergic rhinitis Leigha [facility] Address: [address] [place] [address], [address] [place] [address]. 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 09/27 Ambulatory Encounter CPT Code = 02497 1371458 [id number] [address] Severe dementia Leigha [facility] Address: [address] [place] [address], [address] [place] [address]. 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 09/27 Ambulatory Encounter CPT Code = [address] COVID-19 Leigah [facility] Address: [address] [place] [address], [address] [place] [address]. 09/27 Ambulatory Encounter CPT Code = [address] Low blood pressure Leigha [facility] Address: [address] [place] [address], [address] [place] [address], [facility]. 09/27 Ambulatory Encounter CPT Code = [address] Constipation Leigha [facility] Address: [address] [place] [address], [address] [place] [address], [facility]. 09/27 Ambulatory Encounter CPT Code = [address] Hypothyroidism Leigha [facility] Address: [address] [place] [address], [address] [place] [address], [facility]. 09/27 Ambulatory Encounter CPT Code = [address] Low back pain Leigha [facility] Address: [address] [place] [address], [address] [place] [address]. 09/27 Ambulatory Encounter CPT Code = [address] Polyneuropathy Leigha [facility] Address: [address] [place] [address], [address] [place] [address]. 09/27 Ambulatory Encounter CPT Code = [address] Essential hypertension Leigha [facility] Address: [address] [place] [address], [address] [place] [address]. 09/27 Ambulatory Encounter CPT Code = [address]39 567[address] Gastroesophage al reflux disease without esophagitis Leigha [facility] Address: [address] [place] [address], [address] [place] [address]. 09/27 Ambulatory Encounter CPT Code = [address]32 [address] Anxiety disorder Leigha [facility] Address: [address] [place] [address], [address] [place] [address], [facility]. 09/27 Ambulatory Encounter CPT Code = [address] Osteoarthritis Leigha [facility] Address: [address] [place] [address], [address] [place] [address]. 09/27 Ambulatory Encounter CPT Code = 21205 [address]12[address] Rhabdomyolysis Leigha [facility] Address: [address] [place] [address], [phone], [facility]. 09/27 Ambulatory Encounter CPT Code = [address] Leukocytosis Leigha [facility] Address: [address] [place] [address], [phone], [facility]. 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 09/27 Ambulatory Encounter CPT Code = [address] Glaucoma Leigha [facility] Address: [address] [place] [address], [phone], [facility]. 09/27 Ambulatory Encounter CPT Code = [address] Depressive disorder Leigha [facility] Address: [address] [place] [address], [phone], [facility]. 09/27 Goals Section Goals Description Status Target Date Advanced Directives will be honored through next review Active 12/30/2024 Evaluate Visual Abilities pe riodically, in regards to daily functional limitations through next review Active 12/30/2024 Maintain stable weight through next review Activ e 12/30/2024 Medication benefits with no adverse effects thro ugh next review Active 12/30/2024 Needs will be communicated/met through next revi ew Active 12/30/2024 Optimal cognition will be ma intained with no avoidable decline through next review Active 12/30/2024 Optimal visual ability will be maintained throug h next review Active 12/30/2024 Prevent wounds and prevent a voidable skin breakdown through next review Active 12/30/2024 Resident will be encouraged and assisted with turning and repositioning with care rounds through next review Active 01/2025 Resident will have decreased risk for falls through nursing interventions through next review Active 12/30/2024 Resident will have minimal complaints of pain th rough next review Active 12/30/2024 Resident will have no injury r/t side rail use through next review. Active 12/30/2024 Resident will have toileting needs met by staff through nursing interventions daily through next review Active 12/30/2024 Resident's choices regarding care will be honored through next review Active 12/30/2024 The resident will be free fr om s/sx of complications of CVA ie(DVT, contractures, aspiration pneumonia, dehydration) through review date. Active 12/30/2024 The resident will be able to make basic needs known on a daily basis through the review date. Active 12/30/2024 The resident will be comfort able in their environment and accept long term care social worker care facility through next review Active 12/30/2024 The resident will have no co mplications related to SOB though the review date. Active 12/30/2024 The resident will have no co mplications related to hyperthyroidism through the review date. Active 12/30/2024 The resident will maintain c urrent mobility and/or functional status AEB: no increase in contracture to RUE by receiving PROM 6-7 a week through next review Active 12/30/2024 The resident will maintain c urrent range of motion functional status AEB: no increase in contracture to RUE by wearing splint for up to 4 hours a day 6-7 days a week through next review Active 12/30/2024 The resident will remain irma e from infection through the review date. Active 12/30/2024 Will attend/participate in a ctivities of choice through next review Active 12/30/2024 Will benefit from medication without adverse effects through next review Active 12/30/2024 Will express/exhibit satisfa ction with stay and care through next review Active 12/30/2024 Will have needs met by ankita ashby of staff as needed through next review Active 12/30/2024 Will have no cardiac complications through next review Active 12/30/2024 Will maintain maximum functional mobility throug h next review Active 12/30/2024 Will not exhibit an avoidable decline in mood th rough next review Active 12/30/2024 Immunizations Immunization Status Vaccine Details Vaccine Code CodeSystem Date Notes Influenza completed Influenza, high-dose, split virus, quadrivalent, injectable, preservative free lotNumber: [id number] expiry: 08/18/2023 Mfg: Fluzone HD Quad Given 0.7 ml Left Deltoid intramuscularly 197 CVX created date: 3 consent date: 3 administe red date: 3 Educated by Scot on 12/20/2022 Education provided. Resident to be monitored for 72 hours. Influenza completed Influenza, high-dose, split virus, quadrivalent, injectable, preservative free 197 CVX created date: 3 administe red date: 1 TB 1 Step Mantoux (PPD) completed tuberculin skin test; unspecified formulation expiry: 11/18/2025 Given intradermally 98 CVX created date: 5 administe red date: 5 Annual PPDResults read by Anusha Taylor RN TB 1 Step Mantoux (PPD) completed tuberculin skin test; unspecified formulation Given 0.1 ml Left Forearm intradermally 98 CVX created date: 4 consent date: 4 administe red date: 4 TB 2 Step Mantoux Skin Test completed tuberculin skin test; unspecified formulation lotNumber: [id number] expiry: 10/20/2023 Given 0.1 ml Right Forearm intradermally Step 2 of Multi-step with next step required 98 CVX created date: 3 consent date: 3 administe red date: 3 TB 2 Step Mantoux Skin Test completed tuberculin skin test; unspecified formulation lotNumber: [id number] expiry: 10/20/2023 Given 0.1 ml Left Forearm intradermally Step 1 of Multi-step with next step required 98 CVX created date: 3 consent date: 3 administe red date: 3 Pneumococcal PPSV23 completed pneumococcal polysaccharide vaccine, 23 valent 33 CVX created date: 3 administe red date: 9 SARS-COV-2 (COVID-19) completed lotNumber: [id number] expiry: 11/28/2024 Mfg: Pfizer Given 0.3 Step 2 of Multi-step with next step required created date: 5 consent date: 5 administe red date: 5 duy Dmitri son/POA gave verbal consent for vaccine administration SARS-COV-2 (COVID-19) completed SARS-COV-2 (COVID-19) vaccine, mRNA, spike protein, LNP, bivalent, preservative free, 50 mcg/0.5 mL or 25 mcg/0.25 mL dose Step 1 of Multi-step 229 CVX created date: 3 administe red date: 2 Moderna bivalent booster SARS-COV-2 (COVID-19) completed SARS-COV-2 (COVID-19) vaccine, mRNA, spike protein, LNP, preservative free, 50 mcg/0.5 mL dose Step 1 of Multi-step 221 CVX created date: 3 administe red date: 1 Moderna monovalent booster SARS-COV-2 (COVID-19) completed SARS-COV-2 (COVID-19) vaccine, vector non-replicating, recombinant spike protein-[id number], preservative free, 0.5 mL Step 1 of Multi-step 212 CVX created date: 3 administe red date: 1 J&J initial Pneumococcal Prevnar 20 completed Pneumococcal conjugate vaccine 20-valent (PCV20), polysaccharide [id number] conjugate, adjuvant, preservative free lotNumber: [id number] expiry: 04/16/2024 Mfg: Pfiezer Given intramuscularly 216 CVX created date: 5 consent date: 5 administe red date: 5 Educated by on 04/01/2024 72 hr monitoring COVID-19 Vaccine Additional Dose/Booster completed unknown vaccine or immune globulin lotNumber: [id number] expiry: 05/19/2024 Mfg: Comirnaty 999 CVX created date: 4 consent date: 4 administe red date: 4 Educated by on 01/10/2024 Comirnaty (pfizer) COVID19 [id number] completed SARS-COV-2 (COVID-19) vaccine, mRNA, spike protein, LNP, preservative free, louis-sucrose, 30 mcg/0.3 mL dose lotNumber: [id number] expiry: 03/20/2023 Given 0.3 ml Left Deltoid intramuscularly 309 CVX created date: 4 consent date: 4 administe red date: 4 Educated by SCOT on 02/26/2023 Resident educated and provided consent. Monitoring x72 hours [address] for adverse reactions to vaccine. RSV Vaccine completed Respiratory syncytial virus (RSV), vaccine, recombinant, protein subunit RSV prefusion F, adjuvant reconstituted, 0.5 mL, preservative free lotNumber: [id number] expiry: 01/22/2026 [facility] Given 0.5 ml Left Deltoid intramuscularly 303 CVX created date: 5 consent date: 5 administe red date: 5 Duy Rizvi son/POA gave verbal consent for vaccine administration influenza, trivalent, adjuvanted completed Influenza, adjuvanted, inactivated, trivalent, injectable, preservative free lotNumber: [id number] expiry: 08/17/2024 Mfg: FLUAD 168 CVX created date: 5 consent date: 5 administe red date: 5 Educated by on 03/30/2024 72 hr monitoring Medications Section Medication Name Status Code CodeSystem Dose Route Frequency Admin Type Sig Text Start Date End Date Indication Atorvastati n Calcium Oral Tablet 40 MG active 49879 1 RXNORM 1 table t Oral at bedtime Routin e Give 1 table t by mouth at bedti ok for Shani stero l relat ed to HYPER LIPID EMIA, [facility] UPLenore Smith (E78. 5) 2022 - Cholesterol Baclofen Oral Tablet 10 MG active 1 RXNORM 1 table t Oral at bedtime Routin e Give 1 table t by mouth at bedti ok for Muscl e Spasm s relat ed to OTHER MUSCL E SPASM (M62. 838) 2022 - Muscle Spasms Montelukast Sodium Oral Tablet 10 MG active 4 RXNORM 1 table t Oral one time a day Routin e Give 1 table t by mouth one time a day for Asthm a relat ed to [facility] ANNELFIE D ASTHM A, UNCOM PLICA KENDALL (J45. 909); OTHER SEASO NAL ALLER GIC RHINI TIS (J30. 2) 2022 - Asthma Polyethylen e Glycol 3350 Powder active 99822 3 RXNORM 17 gram Oral one time a day Routin e Give 17 gram by mouth one time a day for Const ipati on relat ed to CONST IPATI ON, UNSPE CIFIE D (K59. 00) 2022 - Constipatio n Lyrica Oral Capsule 100 MG active 34124 8 RXNORM 1 capsu le Oral three times a day Routin e Give 1 capsu le by mouth three times a day for Nerve Pain relat ed to POLYN EUROP ATHY, UNSPE CIFIE D (G62. 9) 2022 - Nerve Pain Levothyroxi ne Sodium Oral Tablet 25 MCG active 97961 0 RXNORM 1 table t Oral one time a day Routin e Give 1 table t by mouth one time a day for Hypot hyroi d relat ed to HYPOT HYROI DISM, UNSPE CIFIE D (E03. 9) 2022 - Hypothyroid Colace Oral Capsule 100 MG active 54603 56 RXNORM 1 capsu le Oral one time a day Routin e Give 1 capsu le by mouth one time a day relat ed to CONST IPATI ON, UNSPE CIFIE D (K59. 00) 2022 - - Metoprolol Succinate ER Oral Tablet Extended Release 24 Hour 25 MG active 03270 7 RXNORM 1 table t Oral one time a day Routin e Give 1 table t by mouth one time a day for HTN relat ed to ESS TIAL (PRIM SARAH) HYPER TENSI ON (I10) 2022 - HTN Omeprazole Oral Capsule Delayed Release 20 MG active 48934 1 RXNORM 1 capsu le Oral one time a day Routin e Give 1 capsu le by mouth one time a day for GERD relat ed to GASTR O-ESO PHAGE AL REFLU X DISEA SE WITHO UT ESOPH AGITI S (K21. 9) 2022 - GERD DULoxetine HCl Oral Capsule Delayed Release Particles 30 MG active 65143 0 RXNORM 1 capsu le Oral one time a day Routin e Give 1 capsu le by mouth one time a day for depre ssion relat ed to DEPRE SSION , UNSPE CIFIE D (F32. A) 2022 - depression traMADol HCl Oral Tablet 50 MG active 64375 3 RXNORM 1 table t Oral four times a day Routin e Give 1 table t by mouth four times a day for chron ic pain relat ed to HEMIP LEGIA AND HEMIP ARESI S FOLLO WING CEREB RAL INFAR CTION AFFEC TING RIGHT DOMIN ANT SIDE (I69. 351); VASCU LAR DEMEN TIA, SEVER E, WITH OTHER BEHAV IORAL DISTU RBANC E (F01. C18); OTHER LOW BACK PAIN (M54. 59);U NSPEC IFIED OSTEO ARTHR ITIS, UNSPE CIFIE D SITE (M19. 90) 2022 - chronic pain Lisinopril Oral Tablet 10 MG active 94285 6 RXNORM 10 mg Oral one time a day Routin e Give 10 mg by mouth one time a day for HTN MAY HOLD IF SYSTO LIC BP < 90 2023 - HTN Claritin Oral Tablet 10 MG active 88003 5 RXNORM 1 table t Oral one time a day Routin e Give 1 table t by mouth one time a day for Aller gies relat ed to OTHER SEASO NAL ALLER GIC RHINI TIS (J30. 2) 2023 - Allergies PreserVisio n AREDS 2 Oral Capsule active 1 table t Oral one time a day Routin e Give 1 table t by mouth one time a day for eye vitam in / slow disea se progr essio n relat ed to PRIMA RY OPEN- ANGLE GLAUC JOLIE, BILAT ERAL, MODER ATE STAGE (H40. 1132) ;NONE XUDAT ROSE AGE-R ELATE D MACUL AR DEGEN ERATI ON, BILAT ERAL, INTER MEDIA TE DRY STAGE (H35. 3132) ;PERS ONAL HISTO RY OF OTHER DISEA SES OF THE NERVO US SYSTE M AND SENSE ORGAN S (Z86. 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 351) 2023 - cerebral infarction rOPINIRole HCl Oral Tablet 0.25 MG active 77099 5 RXNORM 1 table t Oral at bedtime Routin e Give 1 table t by mouth at bedti me relat ed to RESTL ESS LEGS SYNDR OME (G25. 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 351) 2023 - Heart Health/hx of CVA Abilify Oral Tablet 5 MG aborted 43239 2 RXNORM 2.5 mg Oral one time a day Routin e Give 2.5 mg by mouth one time a day relat ed to DEPRE SSION , UNSPE CIFIE D (F32. A);AN XIETY DISOR MIO, UNSPE CIFIE D (F41. 9) 11/02 - Lexapro Oral Tablet 5 MG active 15033 8 RXNORM 1 table t Oral one time a day Routin e Give 1 table t by mouth one time a day for depre ssion relat ed to DEPRE SSION , UNSPE CIFIE D (F32. A) 2023 - depression Eliquis Oral Tablet 5 MG active 69521 47 RXNORM 1 table t Oral two times a day Routin e Give 1 table t by mouth two times a day for pe relat ed to OTHER PULMO NARY EMBOL ISM WITHO UT ACUTE COR PULMO NALE (I26. 99) 2024 - pe Allopurinol Oral Tablet 100 MG active 11678 9 RXNORM 100 mg Oral one time a day Routin e Give 100 mg by mouth one time a day for Gout relat ed to GOUT, UNSPE CIFIE D (M10. 9) 2024 - Gout Combigan Ophthalmic Solution 0.2-0.5 % active 58875 7 RXNORM 1 drop Ophtha lmic two times a day Routin e Insti ll 1 drop in left eye two times a day for PRIMA RY OPEN- ANGLE GLAUC JOLIE, BILAT ERAL, MODER ATE STAGE (H40. 2024 - PRIMARY OPEN-ANGLE GLAUCOMA, BILATERAL, MODERATE STAGE (H40. Acetaminoph en Tablet 500 MG active 41868 0 RXNORM 500 mg Oral as needed PRN Give 500 mg by mouth every 6 hours as neede d for Pain or fever Do NOT excee d 4 GM of Aceta minop hen in 24 hours 2024 - Pain or fever Melatonin Oral Tablet 3 MG active 3 RXNORM 1 table t Oral at bedtime Routin e Give 1 table t by mouth at bedti me for insom felipe 2024 - insomnia Arexvy Intramuscul ar Suspension Reconstitut ed 120 MCG/0.5[place] [address] 99 RXNORM 0.5 ml Intram uscula r one time only One Time Only Injec t 0.5 ml intra muscu larly one time only for Preve ntion for 5 Days 10/23 Prevention Abilify Oral Tablet active 2.5 mg Oral one time a day Routin e Give 2.5 mg by mouth one time a day relat ed to EDGAR MCGRATH D (F32. A) 2024 - - Mental Status Section Date Assessment Total Score Description 09/27/2024 BIMS 03 severe cognitiv e impairment CAM 0 No delirium ind icated PHQ-9 00 07/07/2024 BIMS 04 severe cognitiv e impairment CAM 2 Delirium indica [email or web address] [id number] Insurance Providers Plan of Treatment Section Lab Tests Test Code Code System Name Date 11/21/2024 Interventions Intervention Code Code System Display Name Proposed D ate Problems Problem # Description Date of onset Resolved Date Code CodeSystem Concern Status 1 MAJOR DEPRESSIVE DISORDER, SINGLE EPISODE, UNSPECIFIED [address] active 2 GOUT, UNSPECIFIED [address] active 3 ACUTE RESPIRATORY FAILURE WITH HYPOXIA 025 07/07/[address] completed 4 CELLULITIS OF LEFT UPPER LIMB 025 07/07/[id number] completed 5 OTHER PULMONARY EMBOLISM WITHOUT ACUTE COR PULMONALE [address] active 6 COVID-19 024 01/28/[address] completed 7 COGNITIVE COMMUNICATION DEFICIT 024 07/07/[address] completed 8 MUSCLE WASTING AND ATROPHY, NOT ELSEWHERE CLASSIFIED, MULTIPLE SITES 024 12/30/[address] completed 9 OTHER ABNORMALITIES OF GAIT AND MOBILITY 024 12/30/[address] completed 10 OTHER MUSCLE SPASM [address] active 11 RESTLESS LEGS SYNDROME [address] active 12 HYPERLIPIDEMIA, UNSPECIFIED [address] active 13 NONEXUDATIVE AGE-RELATED MACULAR DEGENERATION, BILATERAL, INTERMEDIATE DRY STAGE [address] active 14 PERSONAL HISTORY OF OTHER DISEASES OF THE NERVOUS SYSTEM AND SENSE ORGANS [address] active 15 PRIMARY OPEN-ANGLE GLAUCOMA, BILATERAL, MODERATE STAGE [address] active 16 OTHER SEASONAL ALLERGIC RHINITIS [address] active 17 VASCULAR DEMENTIA, SEVERE, WITH OTHER BEHAVIORAL DISTURBANCE [address] active 18 HEMIPLEGIA AND HEMIPARESIS FOLLOWING CEREBRAL INFARCTION AFFECTING RIGHT DOMINANT SIDE [address] active 19 COVID-19 023 02/27/[address] completed 20 HYPOTENSION, UNSPECIFIED 023 12/30/[address] completed 21 RESPIRATORY DISORDERS IN DISEASES CLASSIFIED ELSEWHERE 023 12/26/[address] completed 22 UNSPECIFIED ASTHMA, UNCOMPLICATED [address] active 23 CONSTIPATION, UNSPECIFIED [address] active 24 ANXIETY DISORDER, UNSPECIFIED [address] active 25 APHASIA [address] active 26 CEREBRAL INFARCTION DUE TO THROMBOSIS OF LEFT MIDDLE CEREBRAL ARTERY 023 10/04/[address] completed 27 DEPRESSION, UNSPECIFIED 023 11/16/[address] completed 28 DIFFICULTY IN WALKING, NOT ELSEWHERE CLASSIFIED 023 09/30/[address] completed 29 DYSPHASIA FOLLOWING UNSPECIFIED CEREBROVASCULAR DISEASE 023 03/08/[address] completed 30 ELEVATED WHITE BLOOD CELL COUNT, UNSPECIFIED 023 09/30/[address] completed 31 ESSENTIAL (PRIMARY) HYPERTENSION [address] active 32 GASTRO-ESOPHAGEAL REFLUX DISEASE WITHOUT ESOPHAGITIS [address] active 33 HYPOTHYROIDISM, UNSPECIFIED [address] active 34 MUSCLE WASTING AND ATROPHY, NOT ELSEWHERE CLASSIFIED, LEFT LOWER LEG 023 09/30/[address] completed 35 MUSCLE WASTING AND ATROPHY, NOT ELSEWHERE CLASSIFIED, RIGHT LOWER LEG 023 09/29/[address] completed 36 MUSCLE WEAKNESS (GENERALIZED) 023 09/30/[address] completed 37 OTHER LOW BACK PAIN [address] active 38 OTHER SPECIFIED DISORDERS INVOLVING THE IMMUNE MECHANISM, NOT ELSEWHERE CLASSIFIED 023 09/30/[address] completed 39 POLYNEUROPATHY, UNSPECIFIED [address] active 40 RHABDOMYOLYSIS 023 09/30/[address] completed 41 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 ELSEWHERE 023 10/04/[address] completed 42 UNSPECIFIED GLAUCOMA 023 10/04/[address] completed 43 UNSPECIFIED OSTEOARTHRITIS, UNSPECIFIED SITE [address] active Reason for Referral No Reasons for Referral Entered Diagnostic Results Social History Social History Observation Description Start Date End Date Code Code System Current Smoking Status Tobacco smoking consumption unknown 881126111 SNOMED CT Sex Assigned At Female 1940 42926-2 [facility] Gender Identity Female [id number] Sexual Orientation Heterosexual (finding) [id number] [facility] Vital Signs Code Code System Vitals Name Values and Units Timing Information 06604-1 [facility] Pain Level Value=1.0 11/22/2024 8462-4 [facility] Blood Pressure-Diastolic Value=60 Un its=mmHg 11/22/2024 8480-6 [facility] Blood Pressure-Systolic Value=98 Uni ts=mmHg 11/22/2024 9279-1 [facility] Respiratory Rate Value=18.0 Units=/m in 11/21/2024 8310-5 [facility] Body Temperature Value=98.6 Units= F 11/21/2024 8867-4 [facility] Heart rate Value=88.0 Units=/min 05/2024 29640-6 [facility] O2 % BldC Oximetry Value=97.0 Units= % 11/21/2024 56124-8 [facility] Weight Mvcio=603.8 Units=Lbs 08/2024 8302-2 [facility] Height Value=66.0 Units=Inches 09/18/2024 2339-0 [facility] Blood Sugar Mmxud=105.0 Units=mg/dL 06/29/2023
--- OUTSIDE RECORDS SUMMARY | 2024-11-22 01:54 | XMS_ITS | Data Portability ---
Author Organization [place] Philip CRESSON CLOSED Address [address] [place] [address] Assessment Encounter Date Assessment Date Assessment LastModified by Organization Details LastModified Time 04/16/2019 04/16/2019 A) Left nasolabial fold: -Nodular basal cell carcinoma. -Tumor focally touches deep shave margin. -Peripheral margins are negative in the planes of section examined. B) Left lower back: -Basal cell carcinoma, multifocal superficial type. -Tumor is present at peripheral margins. -Deep margin is negative. [email or web address] Not available 04/16/2019 16:41:59 Plan of Treatment Reminders Order Date Submit Date Provider Last Modified By Organization Details Last Modified Time Details Appointments None recorded. Lab urinalysis panel, auto 2021 022 apenningt on9 [facility], [address] [facility] , [place] [address], [place], [address], 2 15:51:34 surgical pathology study [address] [facility], [address] [place] [address], [phone], 1 15:09:32 surgical pathology study [address] [facility], [address] [place] [address], [phone], 0 12:22:03 Referral None recorded. Procedures None recorded. Surgeries None recorded. Imaging None recorded. Medication Orders None recorded. Patient TargetsNo targets recorded. Patient Instructions Encounter Date Encounter Id Patient Instructions Last Modified By Organization Details Last Modified Time 11/23/2021 [id number] If any lesions change, or if any other new or symptomatic lesions occur, patient understands to return to the clinic for further evaluation Discussed sun precautions; SPF 30+ [email or web address] Not available 11/23/2021 12:06:37 Reason for Referral None Reported. Results Created Date Observation Date Name Description Value Unit Range Abnormal Flag Note LastModifiedBy Organization Detail LastModifiedTime 03/19/19 20 03/19/2019 surgi alec patho logy study surgical SEE BELOW Depar tment of Patho logy Surgi alec Patho logy Repor t NAME: DANG RAMAN PATH. :SC-2 [id number] Copy to: Diagn osis: A) Left nasol abial fold: -Nodu lar basal cell carci noma. -Tumo r focal ly touch es deep shave ramona n. -Brittany phera l ramona ns are negat bianca in the plane s of secti on exami lili. B) Left lower back: -Basa l cell carci noma, multi focal super ficia l type. -Tumo r is prese nt at perip heral ramona ns. -Deep ramona n is negat bianca. SOURC E OF SPECI MEN: SKIN BIOPS Y, LEFT NASOL ABIAL FOLD SKIN BIOPS Y, LEFT LOWER BACK CLINI [facility] INFOR MATIO N: D48.5 A-B) R/O BCC Gross Descr iptio n: A) Recei mary in forma lucy label ed with the patie nt's name and desig nated as left nasol abial fold is a shave biops y of skin (0.4 x 0.4 x 0.1 cm). The epide rmal surfa ce is white -gutierrez and rough ened. The ramona n is inked blue. The speci men is bisec jas and entir zion submi tted in one casse tte. B) Recei mary in forma lucy label ed with the patie nt's name and desig nated as left lower back is a shave biops y of skin (1 x 0.8 x 0.1 cm). The epide rmal surfa ce is white -gutierrez and rough ened. The ramona n is inked blue. The speci men is quadr isect ed and entir zion submi tted in one casse tte. DE 03/19 03:30 PM Micro scopi c Descr iptio n: A micro scopi c exami natio n was perfo rmed with findi ngs as indic ated in the diagn osis. MD Stefanie KENDALL d Out Date: 03/20 12:20 Page 1 of 1 Not Available [facility] [place], [address], 03/20/2019 12:22:03 12/30/19 21 12/29/2020 SURGI [facility] surgical SEE BELOW Depar tment of Patho logy Surgi alec Patho logy Repor t NAME: DANG RAMAN PATH. :SC-2 [id number] Copy to: Diagn osis: Right later al knee: Liche noid kerat osis. SOURC E OF SPECI MEN: SKIN BIOPS Y, RIGHT LATER AL KNEE CLINI [facility] INFOR MATIO N: D 48.5 R/O BCC Gross Descr iptio n: Recei mary in forma lucy label ed with the patie nt's name and desig nated as righ t later al knee is a shave biops y of skin (0.8 x 0.6 x 0.1 cm). The epide rmal surfa ce is white and scaly . The ramona n is inked blue. The speci men is trise cted and entir zion submi tted in one casse tte. DE 12/29 02:37 PM Micro scopi c Descr iptio n: Secti ons demon strat e a band- like chron ic infla mmato ry cell infil trate obscu ring the derma l-epi derma l junct ion with assoc iated vacuo lar inter face contreras es of the overl jose luis acant hotic epide rmis. No atypi a or malig ghazal is seen. These findi ngs are in keepi ng with a liche noid kerat osis. ALESSIO ALDANA M.D. Stefanie d Out Date: 12/30 15:08 Page 1 of 1 Not Available [facility] [address] [facility], [place], [address], 12/30/2020 15:09:32 05/12/19 22 05/11/2021 urina lysis panel , auto Unknown Analyte Clean Catch Not Available [address], [place], [address], 05/11/2021 15:09:10 05/12/19 22 05/11/2021 urina lysis panel , auto Unknown Analyte Yellow Not Available [address], [place], [address], 05/11/2021 15:09:10 05/12/19 22 05/11/2021 urina lysis panel , auto Unknown Analyte Slight ly Hazy Not Available [address], [place], [address], 05/11/2021 15:09:10 05/12/19 22 05/11/2021 urina lysis panel , auto Unknown Analyte 1.005 Not Available [address], [place], [address], 05/11/2021 15:09:10 05/12/19 22 05/11/2021 urina lysis panel , auto Unknown Analyte 7.0 Not Available [address], [place], [address], 05/11/2021 15:09:10 05/12/19 22 05/11/2021 urina lysis panel , auto Unknown Analyte Negati ve Not Available [address], [place], [address], 05/11/2021 15:09:10 05/12/19 22 05/11/2021 urina lysis panel , auto Unknown Analyte Negati ve Not Available [address], [place], [address], 05/11/2021 15:09:10 05/12/19 22 05/11/2021 urina lysis panel , auto Unknown Analyte Negati ve Not Available [address], [place], [address], 05/11/2021 15:09:10 05/12/19 22 05/11/2021 urina lysis panel , auto Unknown Analyte Normal Not Available [address], [place], [address], 05/11/2021 15:09:10 05/12/19 22 05/11/2021 urina lysis panel , auto Unknown Analyte Negati ve Not Available [address], [place], [address], 05/11/2021 15:09:10 05/12/19 22 05/11/2021 urina lysis panel , auto Unknown Analyte Normal Not Available [address], [place], [address], 05/11/2021 15:09:10 05/12/19 22 05/11/2021 urina lysis panel , auto Unknown Analyte Negati ve Not Available [address], [place], [address], 05/11/2021 15:09:10 05/12/19 22 05/11/2021 urina lysis panel , auto Unknown Analyte Negati ve Not Available [address], [place], [address], 05/11/2021 15:09:10 Result Notes None recorded. Problems Name Problem SNOMED Code Status Onset Date Resolution Date Notes Provider Name and Address Organization Details Recorded Time Denzel de paz 876036050 Active 2015 From Automated Load;Provi clovis: Anil Mathis;Sta tus: Active Not Available [facility] 6 01:11:11 Urinary tract infectiou s disease 59222387 Active 2015 From Automated Load;Provi clovis: Anil Mathis;Sta tus: Active Not Available [facility] 6 01:11:11 Syncope and collapse 028677033 Active 2015 From Automated Load;Provi clovis: Modesto Sánchez;Statu s: Active Not Available [facility] 6 01:11:11 Hypertens bianca disorder 49816855 Active 2015 From Automated Load;Provi clovis: Modesto Sánchez;Statu s: Active Not Available [facility] 6 01:11:11 Low back pain 874149883 Active 2015 From Automated Load;Provi clovis: Anil Mathis;Sta tus: Active Not Available [facility] 6 01:11:11 Atrophic vaginitis 17464461 Active 2015 From Automated Load;Provi clovis: Mallorie Puri;Sta tus: Active Not Available [facility] 6 01:11:11 Subacute and chronic vulvitis Active 2015 From Automated Load;Provi clovis: Mallorie Puri;Sta tus: Active Not Available [facility] 6 01:11:11 Subacute and chronic vaginitis 678996949 Active 2015 From Automated Load;Provi clovis: Mallorie Puri;Sta tus: Active Not Available [facility] 7 02:45:37 Milagro infection of genital region Active 2015 From Automated Load;Provi clovis: Mallorie Puri;Sta tus: Active Not Available [facility] 7 06:14:48 Chronic interstit ial cystitis 047667535 Active 2015 From Automated Load;Provi clovis: Mallorie Puri;Sta tus: Active Not Available [facility] 7 07:17:04 Notes:: Depression Screening* Date:08/05/2015 Problem Notes None recorded. Procedures Surgical History Date Name Laterality Status Provider Name and Address Organization Details Recorded Time 022 Destruction Premalignant Lesion(s) completed Alethea Arellano [facility] 11/23/2021 12:06:04 021 Biopsy Skin Lesion; Tangential completed [facility] 12/29/2020 09:23:22 021 Destruction Premalignant Lesion(s) completed [facility] 12/29/2020 09:23:23 021 Destruction BN Lesions completed [facility] 12/29/2020 09:23:53 020 Destruction [place] Lesion; trunk, arm, leg completed DEVONTE BUTLER, DO [address] [place], [address], [facility] 04/16/2019 16:41:39 020 Destruction [place] Lesion; face, ear, eyelid, nose, lip completed DEVONTE BUTLER, DO [address] [place], [address], [facility] 04/16/2019 16:41:30 020 Biopsy Skin Lesion; Tangential completed Corby [facility] 03/19/2019 12:08:32 020 Destruction Premalignant Lesion(s) completed DEVONTE BUTLER, DO [address] [place], [address], [facility] 03/19/2019 13:46:51 020 Destruction BN Lesions completed DEVONTE BUTLER, DO [address] [place], [address], [facility] 03/19/2019 13:46:53 017 Date of Last Mammogram completed Qi Rashid [facility] 05/11/2021 13:11:16 015 Date of Last Pap Smear completed Diya Manzo [facility] 11/27/2016 13:17:14 Breast Surgery completed Diya Manzo [facility] 11/27/2016 13:07:56 Cholecystectomy completed Latisha le [facility] 11/27/2016 13:08:08 Dilation and Curettage completed Diya [facility] 11/27/2016 13:08:14 Other completed Diya [facility] 11/27/2016 13:27:06 Xcapsl ctrc rmvl cplx wo ecp completed Diya [facility] 11/27/2016 13:08:42 Removal of tonsils completed Estelashai aaliyah [facility] 11/27/2016 13:08:54 Hysterectomy/blanca e vagina completed Diya [facility] 11/27/2016 13:09:08 Imaging Results None recorded. Procedure Notes None recorded. Medical Equipment None Reported. Allergies Allergen ID Allergen Name Allergen Category Reaction Reaction Severity Criticality Documentation Date Start Date Code Code System Note Provider Name and Address Organization Details Recorded Time 207018 adhesive tape environme nt,medica tion hives Not available Not available 01/12/20162010 React ion: HIVES ; Comme nt: Creat ed By: Moris Girard eated Date: 011 4:21: 06 PM; Not Available [facility] 6 10:44:36 115051 Substance with sulfonami de structure and antibacte rial mechanism of action (substanc e) medicatio n Not available Not available Not available 01/12/20162006 22984 8003 SNOMED Comme nt: Creat ed By: Cecille handley Creat ed Date: 007 1:15: 09 PM; Not Available [facility] 6 10:44:36 Medications Name Sig Start Date Stop Date Status Note LastModified by Organization Details LastModified Time pravastat in 40 mg tablet Take 1 tablet every day by oral route. active Not Available Not Available No t Available fluconazo le 150 mg tablet Take one tab weekly 12/29 completed Not Available Not Available Not Available lisinopri l 20 mg tablet Bedtime active Duration : 30 days;Ja quency: hs;Medic ation Descript ion: lisinopr il; Dosage:1 ; Route:or al; refills: 5; Quantity :30 tablet Not Available Not Available Not Available ropinirol e 0.25 mg tablet PT NEEDS APT PRIOR TO ANY REFILLS active Not Available Not Available No t Available Norvasc 5 mg tablet 1 q 8 hours Daily 2016 active Frequenc y: daily;Me dication Descript ion: amlodipi ne; Dosage:1 ; Route:or al; refills: 5; Quantity :30 tablet Not Available Not Available Not Available ranitidin e 300 mg capsule Take 1 capsule every day by oral route. 05/11 completed Not Available Not Available Not Available Sinemet 25 mg-100 mg tablet As Directed 03/19 completed Frequenc y: as direct.; Alt Frequenc y: prn;Medi cation Descript ion: carbidop a-levodo pa; Dosage:a s directed ; Route:or al; refills: 0; Quantity :60 tablet Not Available Not Available Not Available monteluka st 10 mg tablet Take 1 tablet every day by oral route. active Not Available Not Available No t Available Pravachol 80 mg tablet Daily 03/19 completed Frequenc y: daily;Me dication Descript ion: pravasta tin; Dosage:1 /2; Route:or al; refills: 5; Quantity :30 tablet Not Available Not Available Not Available Napoleon 7.5 mg-325 mg tablet Every eight hours 2015 active Duration : 30 days;Ins truction s: every eight hours as needed;F requency : q8h;Medi cation Descript ion: acetamin ophen-hy drocodon e; Dosage:1 ; Route:or al; refills: 0; Quantity :90 tablet Not Available Not Available Not Available Napoleon 5 mg-325 mg tablet 1 Every eight hours for next 3 days 03/19 completed Duration : 30 days;Ja quency: q8h;Alt Frequenc y: prn;Medi cation Descript ion: acetamin ophen-hy drocodon e; Dosage:1 ; Route:or al; refills: 0; Quantity :90 tablet Not Available Not Available Not Available Ambien 5 mg tablet Take 1 tablet every day by oral route. active Not Available Not Available No t Available Ambien 10 mg tablet Bedtime 11/27 completed Duration : 20 days;Ins truction s: as needed for insomnia ;Frequen cy: hs;Alt Frequenc y: prn;Medi cation Descript ion: zolpidem ; Dosage:1 ; Route:or al; refills: 0; Quantity :30 tablet Not Available Not Available Not Available duloxetin e 30 mg capsule,d elayed release Take 1 capsule by mouth daily with 60mg capsule to equal 90mg a day 11/27 completed Not Available Not Available Not Available duloxetin e 60 mg capsule,d elayed release Take 1 capsule by mouth daily 2016 active Not Available Not Available Not Avai lable Flovent HFA 110 mcg/actua tion aerosol inhaler As Directed 03/19 completed Instruct ions: quantity sufficie nt;Frequ ency: as direct.; Medicati on Descript ion: fluticas one; Dosage:a s directed ; Route:in halation ; refills: 0; Quantity :1 aerosol Not Available Not Available Not Available Lyrica 50 mg capsule Three times a day 03/19 completed Duration : 30 days;Ja quency: tid;Medi cation Descript ion: pregabal in; Dosage:1 ; Route:or al; refills: 2; Quantity :90 capsule Not Available Not Available Not Available Lyrica 100 mg capsule Take 1 capsule 3 times a day by oral route for 3 days. active Not Available Not Available No t Available omeprazol e active Not Available Not Available Not Available baclofen 12/29 completed Not Available Not Available Not Available amlodipin e active Not Available Not Available Not Available Multivita mins Daily 2006 active Duration : 30 days;Ja quency: daily;Me dication Descript ion: multivit callaway; Dosage:1 ; refills: 3; Quantity :100 Not Available Not Available Not Available Vitamin D3 active Not Available Not Available Not Available Miralax active Not Available Not Avail able Not Available kishor extract active Not Available Not Available Not Available Mucinex active Not Available Not Avail able Not Available ProAir HFA 90 mcg/actua tion aerosol inhaler Every six hours 2012 active Frequenc y: q6h;Alt Frequenc y: prn;Medi cation Descript ion: albutero l; Dosage:2 puffs; Route:in halation ; refills: 3; Quantity :3 aerosol Not Available Not Available Not Available ProAir HFA active Not Available Not Available Not Available omeprazol e 20 mg tablet,de layed release Daily active Frequenc y: daily;Me dication Descript ion: omeprazo le; Dosage:1 ; Route:or al; refills: 0 Not Available Not Available Not Available Align (B.infant is) active Not Available Not Available Not Available Vagifem 10 mcg vaginal tablet Insert 1 tablet twice a week by vaginal route at bedtime. 03/19 completed Not Available Not Available Not Available Linzess 290 mcg capsule Daily 03/19 completed Frequenc y: daily;Me dication Descript ion: linaclot harvey; Dosage:1 ; Route:or al; refills: 0 Not Available Not Available Not Available Flonase Allergy Relief 50 mcg/actua tion nasal spray,susan pension Daily 03/19 completed Instruct ions: quantity sufficie nt;Frequ ency: daily;Me dication Descript ion: fluticas one nasal; Dosage:1 spray; Route:na mery; refills: 0; Quantity :1 spray Not Available Not Available Not Available Qvar RediHaler 40 mcg/actua tion HFA breath activated aerosol Inhale 2 puffs twice a day by inhalati on route. active Not Available Not Available No t Available Vitals Date Recorded Body height Body mass index (BMI) Body weight Systolic And Diastolic Provider Name and Address Organization Details Last Updated DateTime 05/11/2021 157.48 cm 29.8 kg/m2 44500.56 g 150/78 mm[Hg] Qi Rashid [facility] 05/11/2021 13:07:47 Social History Question Answer Notes LastModified by Organizat ion Details LastModified Time Tobacco Smoking Status Never Smoker Dolly chin [facility] 03/06/2016 11:34:27 What Was The Date Of Your Most Recent Tobacco Screening? 05/11/2021 Information not available 05/11/2021 Sex: Unknown Functional Status None recorded. Mental Status None recorded. Family History Relationship Description Onset Age of this Age Resolved Age Notes LastModified by Organization Details LastModified Time Father No current problems or disability Not available 03/06 11:34:25 Mother No current problems or disability [email or web address] Not available 03/06 11:34:25 Medical History Condition Response Diabetes N Bleeding Disorder N Arthritis Y Emphysema N Heart Disease N Acid Reflux (GERD) Y Rheumatoid Arthritis N Hypertension Y COPD N Asthma N Gynecological History Statement/Question Response Abnormal Pap N Date of Last Mammogram 11/27/2016 Date of Last Colonoscopy Most Recent Bone Density Menses Monthly N Date of Last Pap Smear 07/15/2014 Current Control Method Hysterectom y Obstetrics History GPAL:G 1 P 0 0 0 1 Type Value Living 1 Total 1 Past Encounters Encounter ID Performer Location Encounter Start Date Encounter Closed Date Diagnosis/Indication Diagnosis SNOMED-CT Code Diagnosis ICD10 Code Diagnosis IMO Codes Diagnosis Note [id number] [place] [address] [place] [address] 03/06/2016 10:33:21 03/06/2016 11:52:11 Fibromyalgia 665585832 M79.7 chronic .with the good and bad days!no PMR noted.no synovitis is seen.slim nue cymbalta at 60 mg po qd, along with lyrica at 100 mg q 8 hours. Low back pain 608666294 M54.5 chronic . LS region. mechanical .only symptomati c care.slim nue Napoleon 5 mg q 8 hours.avoi d all falls.talk ed about simple exercises and maintain walk the best she can. [id number] ANJANA MATHIS MD [facility] [address] 03/19/2016 15:27:04 03/19/2016 15:49:32 Fibromyalgia 956420593 M79.7 chronic .symptomat ic .agitated and anxious , had a fall last week and hurt the right shoulder.I n sling as per the Ortho . she is not able to take muscle relaxer prescribed by ortho- roger gastelum. she is told about her inappropri ate and aggressive behavior. she also apologized for acting like this. I would go ahead and write her a prescripti on for Lyrica and the Napoleon for next 72 hours , 3 days , till she get the actual medication in mail. she will see me as planned. Primary fi bromyalgia syndrome 48494448 M79.7 [id number] LUIS M [facility] [address] [place] [address] 11/27/2016 13:14:23 11/27/2016 14:53:09 Atrophic vaginitis 17055264 N95.2 Pt. previously had tried several different creams for atrophy and only had success with vagifem. Screening for malignant neoplasm of breast 563342144 Z12.31 annual screening Candidiasis of vagina 72 636792 B37.3 cont current therapy. 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 Benign Appearance Multiple b enign melanocytic nevi 327515243 D22.9 Benign Reassuranc e If any lesions change, or if any other new or symptomati c lesions occur, patient understand s to return to the clinic for further evaluation Discussed sun precaution s; SPF 30+ Inflamed s eborrheic keratosis 507454029 L82.0 Education, then cryodestru ction with liquid nitrogen (LN) catches on clothes left neck Skin sensa tion disturbance 28608728 R20.9 ISK Neoplasm o f uncertain behavior of skin 98512883 D48.5 left NLF r/o BCC left lower back r/o BCC shave biopsy see procedure note wound care instructio ns provided patient consents for procedure and photo monitoring Dermatofibroma 246033118 D23.9 Benign Appearance Actinic keratosis 870754 [address] x 1 [id number] DEVONTE BUTLER DO [facility] [address] [place] [address] 04/16/2019 13:08:23 04/17/2019 08:17:21 Basal cell carcinoma of lower back 529245816 C44.519 left lower back Discussed diagnosis of BCC Discussed diagnosis of sBCC, + peripheral margin recommend treatment with ED&C r/a/b of procedure discussed with patient informed consent signed see procedure note f/u 6 months for FSE Basal cell carcinoma of face 555732603 C44.310 left NLF only focal touching deep margin, recommend edc recommend treatment with ED&C r/a/b of procedure discussed with patient informed consent signed see procedure note f/u 6 months for FSE [id number] DEVONTE BUTLER, DO [facility] [address] [place] [address] 12/29/2020 08:11:19 12/29/2020 09:49:17 Solar lentiginosis 238764562 L81.4 Benign Reassuranc e Discussed sun precaution s; SPF 30+ Raised flower orrheic keratosis 4995669444 17347 L82.1 Benign Appearance Senile angioma 5590165 I 78.1 Benign Appearance Multiple b enign melanocytic nevi 356582995 D22.9 Benign Reassuranc e If any lesions change, or if any other new or symptomati c lesions occur, patient understand s to return to the clinic for further evaluation Inflamed s eborrheic keratosis 978829506 L82.0 Education, then cryodestru ction with liquid nitrogen (LN) x1 Skin sensa tion disturbance 26342950 R20.9 ISKitch Dermatofibroma 468815700 D23.9 Benign Appearance Actinic keratosis 017501 007 L57.0 Education then treated with LN; x3pt tolerated welladvise d pt what to expect with freezing History of malignant basal cell neoplasm of skin 242552579 Z85.828 Left nasolabial fold, left lower back- no recurrence Seborrheic dermatitis 50 429473 L21.9 recommend head and shoulders clinical strength for her itchy scalp Purpura 151391899 D69.2 benign reassuranc e Neoplasm o f uncertain behavior of skin 98319773 D48.5 right lateral knee r/o BCC shave biopsy see procedure note wound care instructio ns provided patient consents for procedure and photo monitoring [id number] MALENA COLON APRN [facility] [address] [place] [address] 05/11/2021 12:58:37 05/11/2021 13:44:33 Vaginal wall prolapse [id number] N81.10 Patient to follow up with SEED BUYER/MD for pessary fitting Vaginal pain [id number] R1 0.2 patient reports that she is not interested in vaginal estrogen cream.Pain is thought to be related to mild prolapseMi nimal vaginal atrophy noted on exam Adnexal tenderness 24159 3002 R10.2 see above notes [id number] DEVONTE BUTLER, DERMATOLO [facility] [address] [place] [address] 11/23/2021 11:39:31 11/23/2021 12:11:57 Solar lentiginosis [id number] L81.4 Benign Reassuranc e Discussed sun precaution s; SPF 30+ Raised flower orrheic keratosis [id number] 46572 L82.1 Benign Appearance Senile angioma [id number] I 78.1 Benign Appearance Multiple b enign melanocytic nevi [id number] D22.9 Benign Reassuranc e If any lesions change, or if any other new or symptomati c lesions occur, patient understand s to return to the clinic for further evaluation Dermatofibroma [id number] D23.9 Benign Appearance Actinic keratosis 516530 007 L57.0 Education then treated with LN; L nasal tip x1pt tolerated welladvise d pt what to expect with freezing History of malignant basal cell neoplasm of skin [id number] Z85.828 Left nasolabial fold, left lower back- no recurrence Seborrheic dermatitis 50 108469 L21.9 scalp looks normal today Purpura [id number] D69.2 benign reassuranc e Health Concerns Section Related Observation LastModified by Organization Detai ls LastModified Time None Recorded Concern Status LastModified by Organization Details LastModified Time None Recorded Advance Directives Directive None Recorded Payers Insurance Date Sequence Insurance Name Policy Number Policy Cohn Covered Member ID Cohn Member ID Guarantor Name 11/20/2021 1 [place] Dang Rizvi [id number] Dang Rizvi 11/20/2021 2 AARP (MEDICARE SUPPLEMENT) Dang Rizvi [id number] Dang Rizvi Notes Date Note Type Note Provider Name and Address Organization Details Recorded Time 03/19/2019 text/html New Patient (last seen 2011) Full skin check. Complains of warts on her forehead and scalp pruritis x 1 year. No tx hx. Denies any other new, changing, or bleeding lesions, or other rashes, feels well , and has no family history of melanoma. 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 DEVONTE BUTLER DO [address] [place], [address], [facility] 12/29/2020 18:07:23 05/11/2021 text/html ROS as noted in the HPI 81 year old female presents today with report of vaginal pain/pressure with coughing and walking.Symptoms for over two yearsLast seen in this office on 11/27/17History of hysterectomy 1981States that insurance will not cover Vagifem and that has tried other products and does not like Denies vaginal discharge, itching or burningDenies nausea, vomitingNo change in bowel or bladder: Reports occasional chronic incontinence MALENA COLON, HIDE BUFFER [address] [place], [address], [facility] 05/11/2021 15:59:28 11/23/2021 text/html Established Patient Presents for full skin exam. check spots/moles over body skin lesion on her nose, been present for 2-3 weeks, wants benign reassurance on it h/o bcc Denies any other new or changing lesions. Feels well today. Denies family history of malignant melanoma. DEVONTE BUTLER, DO [address] [place], [address], [facility] 11/23/2021 12:23:17 OBGyn Episode No OBEpisode recorded.
--- OUTSIDE RECORDS SUMMARY | 2024-11-22 01:54 | XMS_ITS | Clinical Summary ---
Author Organization [facility] Address [address] [place] [address] Care Team Providers Care Tailercpa Name Role Phone Martinez Gutierrez MD Primary Care Provider + [phone] Allergies Active Allergy Reactions Criticality Noted Date [...] not crush or chew. Active HYDROcodone-vadim taminophen (Winn) 7.5-325 MG tablet Take 1 tablet (7.5 [...] of 3 - PCV) 07/19/2013 07/19/2012, 02/19/2008 [id number] Vaccine (4 - season) 2024 02/14/2022, 02/07/2021, 08/04/2020 UKY-Influenza Vaccine (#1) 10/19/202412/06, [...] Adults <6.0% Children and Adolescents <7.5% Source: [place] [employer]. Standards of medical care in diabetes,2017. Diabetes Care.2017:40 (suppl 1):S1-S135. HbA1c assay performed by an ion-exchange chromatography method that is certified traceable to the DCCT. 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 No Healthcare Surrogate: Adult child of the patient Name of Healthcare Surrogate: Duy Rizvi Care Teams Tailercpa Relationship Specialty Start Date End Date Martinez Gutierrez MD [address] [facility] [address] [address] PCP - General 07/01/20
--- OUTSIDE RECORDS SUMMARY | 2024-11-22 01:54 | XMS_ITS | Clinical Summary ---
Author Organization [facility] Address [address] [place] [address] Phone Care Team Providers Care Apprentice Electrician Name Role Phone Unavailable Primary Care Provider [...] 07/19/2012, 02/19/2008 COVID-19 Vaccine ( - season) 2024 02/14/2022, 02/07/2021 Influenza Vaccine (#1) 2024 , 11/24/2019, 01/20/2019, Additional history exists DTaP/TDaP/Td (2 - Td or Tdap) 12/17/2026 12/17/2016 Hepatitis B Vaccine Aged Out No longe r eligible based on patient's age to complete this topic Meningococcal B Vaccine Aged Out No l onger eligible based on patient's age to complete this topic
--- OUTSIDE RECORDS SUMMARY | 2024-11-22 01:54 | XMS_ITS | Encounter Summary ---
Author Organization [facility] Address [facility] [place] [address] Care Team Providers Care Public Service Administrator Name Role Phone Unavailable Primary Care Provider Unavailabl e Encounter Details Date Type Department Care Team (Late st Contact Info) Description 09/09/2022 Lab Requisition [facility] [address] [place] [address] [facility] Encounter for general adult medical [...] 6:50 AM EDT 09/09/2022 8:55 AM EDT [facility] HEMATOLOGY ORDERABLES Final Res ult [facility] [address] [facility] , [place] [address] * (ABNORMAL) COMPREHENSIVE METABOLIC PANEL (09/09/2022 6:50 [...] 09/09/2022 9:31 AM EDT [facility] Creatinine 0.83 0.51 - 1.30 mg/dL 09/09/2022 9:31 AM EDT [facility] Albumin 3.5 3.2 - 4.6 gm/dL 09/09/2022 9:31 AM EDT [facility] Total Protein 5.7(L) 6.4 - 8.3 gm/dL 09/09/2022 9:31 AM EDT [facility] Bili Total 0.5 0.2 - 1.3 mg/dL 09/09/2022 9:31 AM EDT [facility] ALT 22 <=41 U/L 09/09/2022 9:31 AM EDT [facility] AST 23 <=40 U/L 09/09/2022 9:31 AM EDT [facility] Alk Phos 97 36 - 123 U/L 09/09/2022 9:31 AM EDT [facility] eGFR (CKD-EPIcr 2020) 69 >=60 mL/min/1.7 3 m2 09/09/2022 9:31 AM EDT [facility] Comment:Estimated GFR was ca lculated using the CKD-EPIcr (2020) equation refit without race. The equation is recommended by the National Kidney Foundation - [place] Society of Nephrology Task Force. Blood VENOUS BLOOD / Unknown 09/09/2022 6:50 AM EDT 09/09/2022 8:55 AM EDT us [facility] CHEMISTRY ORDERABLES Final Resu lt [facility] [address] [facility] , [place] [address] [facility] [address] [place] [address] documented in this encounter Visit Diagnoses Diagnosis Encounter for general adult medical examination without abnormal findings Routine general medical examination at a health care facility documented in this encounter
--- NOTE | 2024-11-22 02:01 | HMH.EDGENADL ---
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 They did blood work after noticing that she was a bit pale and her hemoglobin there was 3.8. Patient and son report that she has been feeling a bit off over the last few days. No reported fever, no reported GI bleed from patient or from nursing facility, no other source of bleeding noted. 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 Related Data Home Medications ?Medication ?Instructions ?Recorded ?Confirmed montelukast 10 mg tablet 10 mg PO HS 01/05/21 11/22/24 levothyroxine 25 mcg tablet 25 mcg PO DAILY 09/03/21 11/22/24 ropinirole 0.25 mg tablet 0.25 mg PO HS 09/03/21 11/22/24 atorvastatin 40 mg tablet 40 mg PO HS 10/16/22 11/22/24 acetaminophen 500 mg tablet 500 mg PO Q6HP PRN Pain or fever 10/17/22 11/22/24 polyethylene glycol 3350 17 gram 17 g PO DAILY 10/17/22 11/22/24 oral powder packet brimonidine 0.1 % eye drops 1 drp ophthalmic (eye) BID 11/15/22 11/22/24 (Alphagan P) docusate sodium 100 mg capsule 100 mg PO DAILY 11/15/22 11/22/24 (Colace) omeprazole 20 mg capsule,delayed 20 mg PO DAILY 11/15/22 11/22/24 release baclofen 10 mg tablet 10 mg PO HS 03/09/24 11/22/24 duloxetine 30 mg capsule,delayed 30 mg PO DAILY 03/09/24 11/22/24 release escitalopram oxalate 5 mg tablet 5 mg PO DAILY 03/09/24 11/22/24 pregabalin 100 mg capsule 100 mg PO TID 03/09/24 11/22/24 vit C 250 mg-vit E 90 mg-zinc 40 1 tab PO DAILY 03/09/24 11/22/24 mg-copper 1 ye-paupby-zmsiua capsule (PreserVision AREDS-2) aripiprazole 2 mg tablet (Abilify) 2.5 mg PO DAILY 11/22/24 11/22/24 aspirin 81 mg tablet 81 mg PO DAILY 11/22/24 11/22/24 loratadine 10 mg tablet (Claritin) 10 mg PO DAILY 11/22/24 11/22/24 loratadine 10 mg tablet (Claritin) 10 mg PO DAILY 11/22/24 11/22/24 melatonin 3 mg tablet 3 mg PO HS 11/22/24 11/22/24 Previous Rx's ?Medication ?Instructions ?Recorded lisinopril 10 mg tablet 10 mg PO DAILY #90 tabs 05/28/23 clopidogrel 75 mg tablet (Plavix) 75 mg PO DAILY #90 tabs 05/29/23 tramadol 50 mg tablet 50 mg PO QID pain #120 tabs 12/16/23 allopurinol 100 mg tablet 100 mg PO DAILY #30 tabs 03/09/24 apixaban 5 mg tablet (Eliquis) 5 mg PO BID #30 tabs 03/09/24 Allergies Allergy/AdvReac Type Severity Reaction Status Date / Time Sulfa (Sulfonamide Allergy Mild unkno Verified 11/22/24 02:09 Antibiotics) (SULFA (SULFONAMIDE ANTIBIOTICS)) [facility] Disclaimer: The information contained in this section may have been updated after the patient was seen, as this information can be updated by other users. Medical History Asthma HLD (hyperlipidemia) HTN (hypertension) GERD (gastroesophageal reflux disease) Acute encephalopathy Transient alteration of awareness Abnormal electrocardiogram [ECG] [EKG] Cerebral infarction due to thrombosis of left middle cerebral artery Polyneuropathy Anxiety Aphasia Dysphasia Vertigo Ptosis Muscle weakness Chronic back pain UTI (urinary tract infection) Family History Other Cancer Coronary artery disease Diabetes Hypertension Social History (Updated 11/22/24 @ 04:16 by Jillian Vieira RN) Smoking Status: Never smoker second hand exposure: No alcohol intake: never substance use type: denies use current occupational status: retired Travel in the last 8 weeks?: None household members: none housing: fdc caffeine: Yes Contact w/someone who lives/traveled outside [place] past 30 days?: No Exposure to someone with infectious disease in past 14 days?: No Other Medical History Have you received the Flu Vaccine for this season: No Have you received the Pneumonia Vaccine: No ROS Obtained: Yes All systems reviewed & no additional complaints except as documented Physical Exam General General appearance: alert and in no apparent distress Head Head exam: atraumatic and normocephalic Eye Eye exam: Present normal appearance, PERRL and EOMI ENT ENT exam: Present normal oropharynx and normal external ear exam Neck Neck exam: Present normal inspection and full ROM Chest Chest inspection: Present normal inspection and symmetric chest wall rise; Absent tenderness Respiratory Respiratory exam: Present normal lung sounds bilaterally; Absent respiratory distress Cardiovascular Cardiovascular exam: Present regular rate and normal rhythm Abdominal Exam Abdominal exam: Present soft; Absent distention, tenderness or guarding Extremities Exam Extremities exam: Present normal inspection; Absent edema or joint swelling Back Exam Back exam: Present normal inspection; Absent tenderness Neurological Exam Neurological exam: Present alert and oriented X3; Absent motor sensory deficit Psychiatric Psychiatric exam: Present normal affect and normal mood Skin Skin exam: Present warm, dry and pallor Lymphatic Lymphatic Findings: no adenopathy Medical Decision Making Medical Records Medical records reviewed: Yes I reviewed the patient's medical records. Screening: Per USPSTF and CDC recommendations, given the prevalence of disease in our region, it is our hospital?s policy to screen for HIV and viral Hepatitis for all patients aged 18 and over and those with ongoing risk factors. Yandel Inquiry Pt receiving controlled substance: No Yandel was queried for this patient: No Vital Signs: 11/22/24 02:22 11/22/24 02:30 11/22/24 02:38 Temperature 98.8 F Temperature Source Oral Pulse Rate 88 84 Pulse Rate [Apical] 80 Respiratory Rate 20 20 Blood Pressure 125/49 L 130/53 L Blood Pressure [Left Arm] 130/53 L Blood Pressure Mean [Left Arm] 78 Blood Pressure Source Blood Pressure Source [Left Arm] Automatic Cuff Blood Pressure Position Blood Pressure Position [Left Arm] Sitting 02 Sat by Pulse Oximetry 98 99 99 Oxygen Delivery Method Nasal Cannula Nasal Cannula Nasal Cannula Oxygen Flow Rate (LPM) 1 1 1 11/22/24 03:32 Temperature 98.8 F Temperature Source Oral Pulse Rate 88 Pulse Rate [Apical] Respiratory Rate 20 Blood Pressure 123/56 L Blood Pressure [Left Arm] Blood Pressure Mean [Left Arm] Blood Pressure Source Automatic Cuff Blood Pressure Source [Left Arm] Blood Pressure Position Sitting Blood Pressure Position [Left Arm] 02 Sat by Pulse Oximetry Oxygen Delivery Method Room Air Oxygen Flow Rate (LPM) Lab Data Lab results reviewed: Yes I reviewed the patient's lab results. Lab Results 11/22/24 02:02: VBG pH 7.53 H, VBG pCO2 28.1 L, VBG pO2 166.3 H, VBG HCO3 23.0, VBG Total CO2 23.9, VBG O2 Saturation 99.5 H, VBG Base Excess 0.3, VBG Lactic Acid 1.4 11/22/24 02:05: WBC 7.1, RBC 2.15 L, Hgb 3.9 L*, Hct 15.8 L*, MCV 73.5 L, MCH 18.6 L, MCHC 25.3 L, RDW 19.8 H, Plt Count 246, MPV 11.3 H, Neut % (Auto) 68.9, Lymph % (Auto) 19.1, Haines % (Auto) 8.6, Eos % (Auto) 2.7, Baso % (Auto) 0.3, Neut # (Auto) 4.9, Lymph # (Auto) 1.4, Haines # (Auto) 0.6, Eos # (Auto) 0.2, Baso # (Auto) 0.0, PT 11.5, INR 1.04, APTT 21.2 L, Sodium 137, Potassium 4.1, Chloride 103, Carbon Dioxide 26, Anion Gap 12.1, BUN 19 H, Creatinine 0.70, Estimated Creat Clear 72, Estimated GFR 79, Est GFR ( Amer) 96, Glucose 121 H, Calcium 8.2 L, Iron 32 L, Total Bilirubin 0.6, AST 24, ALT 13, Alkaline Phosphatase 101, Total Protein 5.5 L, Albumin 3.3 L, Globulin 2.2, Albumin/Globulin Ratio 1.5, Blood Type O Positive, Antibody Screen Negative, Crossmatch (AHG) See Detail 11/22/24 02:05 11/22/24 02:05 Orders (Tests/Meds): ED MEDICATIONS Generic Name Dose Route Start Last Admin Trade Name Freq PRN Reason Stop Dose Admin Acetaminophen 650 mg 11/22/24 03:06 Acetaminophen 325mg Tab PO 12/22/24 03:05 Q4HP PRN Fever or Mild Pain (1-3) Sodium Chloride 250 mls @ 25 mls/hr 11/22/24 02:00 Sod Chlor 0.9% 250ml Bag IV 11/23/24 01:59 .Q10H ANJU Ondansetron HCl 4 mg 11/22/24 03:06 Ondansetron 4mg/2ml Vial IV 12/22/24 03:05 Q8HP PRN Nausea Pantoprazole Sodium 40 mg 11/22/24 09:00 Pantoprazole 40mg Vial IV 12/22/24 08:59 BID ANJU Sodium Chloride 10 ml 11/22/24 04:22 Sodium Chloride 0.9% 10ml Vial IV 12/22/24 04:21 NEEDED PRN dilute protonix Discontinued Medications Generic Name Dose Route Start Last Admin Trade Name Freq PRN Reason Stop Dose Admin Pantoprazole Sodium 80 mg/ 100 mls @ 100 mls/hr 11/22/24 01:55 11/22/24 02:25 Sodium Chloride IV 11/22/24 02:54 100 mls/hr ONCE ONE Administration ORDERS Category Date Time Status Transfuse RBC's [Red Blood Cells] Stat [facility] 11/22/24 02:05 Results Type and Screen Stat [facility] 11/22/24 02:05 Results CXR --portable [XR chest portable] Stat Exams 11/22/24 01:51 Completed CBC w/Auto Diff [Complete Blood Count Auto Diff] [facility] 11/22/24 02:05 Completed CMP [Comprehensive Metabolic Panel] [facility] 11/22/24 02:05 Completed PT INR [Prothrombin Time INR] [facility] 11/22/24 02:05 Completed PTT [Activated Partial Thrombo Time] [facility] 11/22/24 02:05 Completed VBG [Venous Blood Gas] Stat RT 11/22/24 02:02 Completed Medical Decision Narrative: 84-year-old female with history of prior stroke with right-sided deficits, prior PEs on blood thinners presents for acute on chronic anemia. History was obtained via interactive discussion with patient. On arrival, patient is [afebrile, hemodynamically stable, satting appropriately, alert, oriented x4, GCS 15], moving all extremities spontaneously. Full physical exam performed and significant for pale, but otherwise benign exam. No abdominal tenderness. Differential includes but is not limited to GI bleed, hemolytic anemia, bone marrow failure Patient was given IV pantoprazole for symptomatic management and correction of underlying abnormalities. Workup initiated including CBC CMP PT/INR type and screen chest x-ray, VBG. On re-evaluation, patient remains normotensive with normal heart rate. Mental status unchanged. Laboratory workup independently interpreted by me and significant for hemoglobin of 3.9, normal platelets, no significant electrolyte derangement. Patient's lactate is normal.. Imaging independently interpreted by me and significant for cardiomegaly. See radiology read for full review of final results. CTA GI bleed was considered, but deemed unnecessary due to no abdominal pain, no history of GI bleed, no dark stools reported, chronicity of symptoms. Given patient history, exam and workup, patient's presentation most likely represents acute on chronic anemia. Given patient's normal vital signs and normal lactate, no evidence of acute drop in her hemoglobin. We spoke with the lab, they report that due to the patient's antibodies they will have to speak with the [place] [facility] and send for blood, they were unable to give a specific timeline. I considered transfer for more urgent transfusion, but given patient's normal vital signs, normal lactate, and no source of active bleeding, I do not think that she requires emergent transfusion and I think she is stable to wait for blood to be brought here. Patient and son are agreeable to plan. I spoke with the hospitalist for admission.. Procedures Risk/Benefits of Procedure(s) Were Explained: Yes Critical Care Critical Care Time Critical Care Time: Yes Attestation: On 11/22/24, the high probability of a clinically significant, sudden or life threatening deterioration of the following system(s) required my full and direct attention, intervention and personal management. The time I documented below is in addition to time spent performing reported procedures but includes the following listed in this critical care notation. Total Time Total Critical Care Time: 40
[2024-11-22 02:13] LABS: Lactate Venous 1.4 mmol/L (0.4-2.0); VBG HCO3 23.0 mmol/L (23-30); VBG PCO2 28.1 mmol/L (35-51); VBG PH 7.53 mmol/L (7.31-7.41); VBG PO2 166.3 mmol/L (28-40)
[2024-11-22 02:20] LABS: Immature Granulocytes % 0.4 %; Mean Corpuscular HGB Conc 25.3 g/dL (31.8-35.4); Mean Corpuscular Hemoglobin 18.6 pg (27.0-31.2); Mean Corpuscular Volume 73.5 fl (81-99); Nucleated Red Blood Cells % 1.0 %; Platelet Count 246 K/mm3 (142-424); Red Blood Count 2.15 M/mm3 (4.20-5.40); Red Cell Distribution Width-SD 51.1 fL; White Blood Count 7.1 K/mm3 (4.8-10.8)
[2024-11-22 02:23] LABS: Hematocrit 15.8 % (37.0-47.0)
--- NOTE | 2024-11-22 02:23 | PC.NURSE ---
critical called from MD kulwant notified
[2024-11-22] MEDS: PANTOPRAZOLE SODIUM 80 MG in 0.9 % SODIUM CHLORIDE 100 ML 100 MG IV (02:25)
[2024-11-22 02:54] LABS: Alanine Aminotransferase 13 U/L (12-78); Albumin Level 3.3 g/dl (3.5-5.0); Albumin/Globulin Ratio 1.5 (1.1-1.8); Alkaline Phosphatase 101 U/L (38-126); Anion Gap 12.1 mEq/L (5-15); Aspartate Amino Transferase 24 U/L (14-36); Bilirubin,Total 0.6 mg/dl (0.2-1.3); Blood Urea Nitrogen 19 mg/dl (7-17); Calcium 8.2 mg/dl (8.4-10.2); Carbon Dioxide 26 mmol/L (22.0-30.0); Chloride 103 mmol/L (98-107); Creatinine Clearance Estimated 72 mL/min (50-200); Creatinine,Serum 0.70 mg/dl (0.52-1.04); Estimated Glomerular Filt Rate 79 ml/min (>60); GFR (African American) 96 ML/MIN (>60); Globulin 2.2 g/dL (1.3-3.2); Glucose 121 mg/dl (74-100); Potassium 4.1 mmoL/L (3.5-5.1); Sodium 137 mmol/L (136-145); Total Protein,Serum 5.5 g/dl (6.3-8.2)
[2024-11-22 03:11] LABS: Activated Partial Thrombo Time 21.2 seconds (22.8-30.6); INR 1.04 (0.9-1.1); Prothrombin Time 11.5 seconds (10.1-12.5)
--- NOTE | 2024-11-22 03:20 | PC.NURSE ---
report called to Dolly VELÁZQUEZ
--- NOTE | 2024-11-22 04:15 | EXP.HP ---
History of Present Illness *Admission Date: 11/22/24 *Reason for visit:: Anemia *History of present illness: Patient is a 84-year-old female with with past medical history of CVA with right-sided neurologic deficits history of PE, hypothyroidism, depression who presents to the hospital long term due to fatigue and pale coloration. On further evaluation patient was found to have anemia. Patient otherwise denied chest pain shortness of breath nausea vomiting diarrhea constipation dysuria fevers and chills. Patient denied melanotic stools. Patient also denied any visible bleed. Patient is on Eliquis, aspirin, Plavix at long term facility. [facility] Disclaimer: The information contained in this section may have been updated after the patient was seen, as this information can be updated by other users. Medical History Asthma HLD (hyperlipidemia) HTN (hypertension) GERD (gastroesophageal reflux disease) Acute encephalopathy Transient alteration of awareness Abnormal electrocardiogram [ECG] [EKG] Cerebral infarction due to thrombosis of left middle cerebral artery Polyneuropathy Anxiety Aphasia Dysphasia Vertigo Ptosis Muscle weakness Chronic back pain UTI (urinary tract infection) Family History Other Cancer Coronary artery disease Diabetes Hypertension Social History (Updated 11/22/24 @ 04:16 by Jillian Vieira RN) Smoking Status: Never smoker second hand exposure: No alcohol intake: never substance use type: denies use current occupational status: retired Travel in the last 8 weeks?: None household members: none housing: long term caffeine: Yes Contact w/someone who lives/traveled outside US past 30 days?: No Exposure to someone with infectious disease in past 14 days?: No Other Medical History Have you received the Flu Vaccine for this season: No Have you received the Pneumonia Vaccine: No Review of Systems Review of Systems Review of systems:: pertinent systems reviewed and negative unless documented below Meds Home Medications and Allergies Home Medications ?Medication ?Instructions ?Recorded ?Confirmed ?Type montelukast 10 mg tablet 10 mg PO HS 01/05/21 11/22/24 History levothyroxine 25 mcg tablet 25 mcg PO DAILY 09/03/21 11/22/24 History ropinirole 0.25 mg tablet 0.25 mg PO HS 09/03/21 11/22/24 History atorvastatin 40 mg tablet 40 mg PO HS 10/16/22 11/22/24 History acetaminophen 500 mg tablet 500 mg PO Q6HP PRN Pain or fever 10/17/22 11/22/24 History polyethylene glycol 3350 17 gram 17 g PO DAILY 10/17/22 11/22/24 History oral powder packet brimonidine 0.1 % eye drops 1 drp ophthalmic (eye) BID 11/15/22 11/22/24 History (Alphagan P) docusate sodium 100 mg capsule 100 mg PO DAILY 11/15/22 11/22/24 History (Colace) omeprazole 20 mg capsule,delayed 20 mg PO DAILY 11/15/22 11/22/24 History release lisinopril 10 mg tablet 10 mg PO DAILY #90 tabs 05/28/23 11/22/24 Rx clopidogrel 75 mg tablet (Plavix) 75 mg PO DAILY #90 tabs 05/29/23 11/22/24 Rx tramadol 50 mg tablet 50 mg PO QID pain #120 tabs 12/16/23 11/22/24 Rx allopurinol 100 mg tablet 100 mg PO DAILY #30 tabs 03/09/24 11/22/24 Rx apixaban 5 mg tablet (Eliquis) 5 mg PO BID #30 tabs 03/09/24 11/22/24 Rx baclofen 10 mg tablet 10 mg PO HS 03/09/24 11/22/24 History duloxetine 30 mg capsule,delayed 30 mg PO DAILY 03/09/24 11/22/24 History release escitalopram oxalate 5 mg tablet 5 mg PO DAILY 03/09/24 11/22/24 History pregabalin 100 mg capsule 100 mg PO TID 03/09/24 11/22/24 History vit C 250 mg-vit E 90 mg-zinc 40 1 tab PO DAILY 03/09/24 11/22/24 History mg-copper 1 [id number] capsule (PreserVision AREDS-2) aripiprazole 2 mg tablet (Abilify) 2.5 mg PO DAILY 11/22/24 11/22/24 History aspirin 81 mg tablet 81 mg PO DAILY 11/22/24 11/22/24 History loratadine 10 mg tablet (Claritin) 10 mg PO DAILY 11/22/24 11/22/24 History loratadine 10 mg tablet (Claritin) 10 mg PO DAILY 11/22/24 11/22/24 History melatonin 3 mg tablet 3 mg PO HS 11/22/24 11/22/24 History New Prescriptions to Start Prescriptions: Allergies Allergy/AdvReac Type Severity Reaction Status Date / Time Sulfa (Sulfonamide Allergy Mild unkno Verified 11/22/24 02:09 Antibiotics) (SULFA (SULFONAMIDE ANTIBIOTICS)) Exam Data for Last 24 hours Vital signs and Labs for Last 24 Hours: Temp Pulse Resp BP Pulse Ox O2 Del Method O2 Flow Rate 98.8 F 88 20 123/56 L 99 Room Air 1 11/22/24 03:32 11/22/24 03:32 11/22/24 03:32 11/22/24 03:32 11/22/24 02:38 11/22/24 03:32 11/22/24 02:38 Laboratory Results - last 24 hr 11/22/24 02:02: VBG pH 7.53 H, VBG pCO2 28.1 L, VBG pO2 166.3 H, VBG HCO3 23.0, VBG Total CO2 23.9, VBG O2 Saturation 99.5 H, VBG Base Excess 0.3, VBG Lactic Acid 1.4 11/22/24 02:05: WBC 7.1, RBC 2.15 L, Hct 15.8 L*, MCV 73.5 L, MCH 18.6 L, MCHC 25.3 L, RDW 19.8 H, Plt Count 246, MPV 11.3 H, Neut % (Auto) 68.9, Lymph % (Auto) 19.1, [place] % (Auto) 8.6, Eos % (Auto) 2.7, Baso % (Auto) 0.3, Neut # (Auto) 4.9, Lymph # (Auto) 1.4, [place] # (Auto) 0.6, Eos # (Auto) 0.2, Baso # (Auto) 0.0, PT 11.5, INR 1.04, APTT 21.2 L, Sodium 137, Potassium 4.1, Chloride 103, Carbon Dioxide 26, Anion Gap 12.1, BUN 19 H, Creatinine 0.70, Estimated Creat Clear 72, Estimated GFR 79, Est GFR ( Amer) 96, Glucose 121 H, Calcium 8.2 L, Total Bilirubin 0.6, AST 24, ALT 13, Alkaline Phosphatase 101, Total Protein 5.5 L, Albumin 3.3 L, Globulin 2.2, Albumin/Globulin Ratio 1.5, Crossmatch (AHG) See Detail I & O for Last 24 hours: Intake & Output 11/19/24 11/20/24 11/21/24 11/22/24 23:59 23:59 23:59 23:59 Weight 113.398 kg Constitutional Constitutional: no acute distress *Routine HEENT Exam Head: Present normocephalic Eye: Present EOMI and PERRL ENT: Present mucous membranes moist *Routine Neck Exam Neck: Present supple; Absent lymphadenopathy *Routine Respiratory Exam Respiratory: Present CTA bilaterally *Routine Cardiovascular Exam Cardiovascular: Present RRR *Routine Abdominal Exam Abdominal: Present soft and normoactive bowel sounds; Absent tenderness *Routine Rectal Exam Rectal:: deferred *Routine Genitalia Exam Genitalia:: deferred *Routine Extremities Exam Extremities: Absent cyanosis, clubbing or edema *Routine Skin Exam Skin: Present warm; Absent rash *Routine Neurological Exam Neurological: Present alert and oriented X3 Comments: has R sided weakness, hemiplegia Assessment and Plan *Assessment and plan (1) Anemia: Status: Acute Qualifiers: Anemia type: unspecified type Qualified Code(s): D64.9 - Anemia, unspecified Category: Medical Code(s): D64.9 - Anemia, unspecified (2) Pulmonary embolism: Status: Acute Category: Medical Code(s): I26.99 - Other pulmonary embolism without acute cor pulmonale (3) Right hemiplegia: Status: Chronic Category: Medical Code(s): G81.91 - Hemiplegia, unspecified affecting right dominant side (4) CVA, old, cognitive deficits: Status: Acute Category: Medical Code(s): I69.319 - Unspecified symptoms and signs involving cognitive functions following cerebral infarction (5) Hyperlipidemia: Status: Acute Qualifiers: Hyperlipidemia type: unspecified Qualified Code(s): E78.5 - Hyperlipidemia, unspecified Category: Medical Code(s): E78.5 - Hyperlipidemia, unspecified (6) Hypertension: Status: Acute Qualifiers: Hypertension type: unspecified Qualified Code(s): I10 - Essential (primary) hypertension Category: Medical Code(s): I10 - Essential (primary) hypertension Plan Patient is a 84-year-old female with with past medical history of CVA with right-sided neurologic deficits history of PE, hypothyroidism, depression who presents to the hospital long term due to fatigue and pale coloration. On further evaluation patient was found to have anemia. Patient otherwise denied chest pain shortness of breath nausea vomiting diarrhea constipation dysuria fevers and chills. Patient denied melanotic stools. Patient also denied any visible bleed. Patient is on Eliquis, aspirin, Plavix at long term facility. Assessment and plan Acute anemia suspect due to anemia blood loss Check a stool occult test IV PPI empirically Baseline Hb around 11, Hb on admission 7, PRBC was ordered from ED, patient has known antibodies, needs specialized PRBC Hold antiplatelets anticoagulants including Eliquis, aspirin, Plavix Consult gastroenterology for possible bleeding ulcer GI liquid diet for now Check iron levels, iron saturation, ferritin Chronic medical conditions History of CVA with right-sided weakness Paraplegia History of PE on Eliquis history of CAD Hold aspirin, Plavix, Eliquis for now, Resume other home medications when confirmed DVT prophylaxis-SCDs only
[2024-11-22 04:41] LABS: Iron 32 ug/dL (37-170)
[2024-11-22 04:44] LABS: Hemoglobin 3.9 g/dL (12.2-16.2)
[2024-11-22 04:50] LABS: Total Iron Binding Capacity 387 ug/dL (265-497)
[2024-11-22 05:55] LABS: Ferritin 6.09 ng/ml (11.1-264)
[2024-11-22 07:18] LABS: Immature Granulocytes % 0.4 %; Mean Corpuscular HGB Conc 24.0 g/dL (31.8-35.4); Mean Corpuscular Hemoglobin 17.8 pg (27.0-31.2); Mean Corpuscular Volume 74.0 fl (81-99); Nucleated Red Blood Cells % 0.4 %; Platelet Count 227 K/mm3 (142-424); Red Blood Count 2.08 M/mm3 (4.20-5.40); Red Cell Distribution Width-SD 51.5 fL; White Blood Count 8.3 K/mm3 (4.8-10.8)
[2024-11-22 07:34] LABS: Hematocrit 15.4 % (37.0-47.0)
[2024-11-22 07:40] LABS: Chloride 102 mmol/L (98-107); Potassium 4.0 mmoL/L (3.5-5.1); Sodium 136 mmol/L (136-145)
[2024-11-22 07:43] LABS: Anion Gap 12.0 mEq/L (5-15); Blood Urea Nitrogen 19 mg/dl (7-17); Carbon Dioxide 26 mmol/L (22.0-30.0); Creatinine Clearance Estimated 54 mL/min (50-200); Creatinine,Serum 0.80 mg/dl (0.52-1.04); Estimated Glomerular Filt Rate 68 ml/min (>60); GFR (African American) 82 ML/MIN (>60)
[2024-11-22 07:44] LABS: Calcium 8.7 mg/dl (8.4-10.2); Glucose 126 mg/dl (74-100)
--- NOTE | 2024-11-22 08:17 | PC.NURSE ---
Pt. is alert to name. Pt. is on oxygen 3 liters per NC . Pt. was sent from [facility] for low HGB. Pt. has not felt well the last 2-3 days and has been very pale. Pt. had labs drawn yesterday and they came back at midnight with a HGB 3.9. Pt. admitted for anemia and blood transfusions. Pt. had a stroke and right side is flaccid. Personal items and call ernandez in use, Bed in low and locked position. safety measures in place.
[2024-11-22] MEDS: PANTOPRAZOLE 40MG VIAL 40 MG IV ×2 (08:34→20:26)
[2024-11-22] MEDS: SODIUM CHLORIDE 0.9% 10ML VIAL 10 ML IV ×2 (08:34→20:26)
[2024-11-22] MEDS: IRON SUCROSE COMPLEX 200 MG in 0.9 % SODIUM CHLORIDE 100 ML 220 MG IV (08:34)
--- NOTE | 2024-11-22 11:26 | P.CONPHA_ITS ---
Pharmacy Intervention Comments: MEDICATION RECONCILIATION COMPLETED ON PATIENT USING [facility]. -VALENTE YATES, MARKD
--- NOTE | 2024-11-22 11:26 | HMH.PHAINT1 ---
Pharmacy Intervention Comments: MEDICATION RECONCILIATION COMPLETED ON PATIENT USING MAR FROM [facility]. -VALENTE YATES, MARKD
[2024-11-22 11:58] LABS: Hemoglobin 3.7 g/dL (12.2-16.2)
--- NOTE | 2024-11-22 12:44 | PC.NURSE ---
Addendum entered by AMIRAH Ingram 11/22/24 12:48: call person PT returned call back at 1247. Original Note: call person PT was called twice at 0810 and again at 1240 with no answer.
[2024-11-22] MEDS: PREGABALIN 100MG CAPSULE 100 MG PO ×2 (13:01→20:26)
[2024-11-22] MEDS: LEVOTHYROXINE 25MCG (0.025MG) TAB 25 MCG PO (13:01)
[2024-11-22] MEDS: ALLOPURINOL 100MG TABLET 100 MG PO (13:01)
[2024-11-22] MEDS: ACETAMINOPHEN 325MG TAB 650 MG PO ×2 (13:08→23:56)
[2024-11-22] MEDS: ESCITALOPRAM 10MG TABLET 5 MG PO (13:14)
[2024-11-22] MEDS: BUMETANIDE 1MG/4ML VIAL 1 MG IV (14:49)
--- NOTE | 2024-11-22 17:26 | PC.NURSE ---
alert to self only. received 1 unit of blood this shift, awaiting other unit. IV bumex administered after blood transfusion per MD orders. pillows used for repositioning and BLE elevation. patient took PO meds whole. patient c/o BLE pain, tylenol given per APR. clear liquid diet, brief in place. Son at bedside, call light within reach.
[2024-11-22] MEDS: BACLOFEN 10MG TABLET 10 MG PO (20:26)
[2024-11-22] MEDS: ROPINIROLE HCL 0.25 MG TABLET PO (20:26)
[2024-11-22 23:22] LABS: Occult Blood,Stool Positive (Negative)
[2024-11-23] VITALS (35 sets, daily range): BP systolic 106–145; BP diastolic 40–73; PULSE 40–90; RESP 14–18; TEMP 36.1–37; O2SAT 93–100; BMI 29.8
--- NOTE | 2024-11-23 03:53 | PC.NURSE ---
Alert to name. Complained of generalized weakness, treated per mar. Tolerating room air. Edema noted to BLE. Repositioned throughout shift. Blood transfusion waiting, called labs for update several times throughout night, as of this morning, they are speaking with their medical affairs manager about issues with the new units and the crossmatch. Bed alarm on. Call light in reach.
[2024-11-23] MEDS: LEVOTHYROXINE 25MCG (0.025MG) TAB 25 MCG PO (06:24)
--- NOTE | 2024-11-23 06:41 | PC.NURSE ---
Patient very lethargic and had to wake up this AM when administering her morning meds. Vitals stable, 128/62 99% 2L NC, 76 HR. Patient did awaken after being pulled up, lights on. Called Mirlande to update. Patient more awake now.
[2024-11-23 07:41] LABS: Immature Granulocytes % 1.6 %; Mean Corpuscular HGB Conc 27.7 g/dL (31.8-35.4); Mean Corpuscular Hemoglobin 20.9 pg (27.0-31.2); Mean Corpuscular Volume 75.6 fl (81-99); Nucleated Red Blood Cells % 1.6 %; Platelet Count 214 K/mm3 (142-424); Red Blood Count 2.58 M/mm3 (4.20-5.40); Red Cell Distribution Width-SD 53.1 fL; White Blood Count 6.3 K/mm3 (4.8-10.8)
[2024-11-23 07:44] LABS: Hematocrit 19.5 % (37.0-47.0)
[2024-11-23 07:50] LABS: Hemoglobin 5.3 g/dL (12.2-16.2)
--- OUTSIDE RECORDS SUMMARY | 2024-11-23 08:02 | XMS_ITS | Clinical Summary ---
Author Organization [facility] Address [address] [place] [address] Care Team Providers Care Peer Health Promoter Name Role Phone Martinez Gutierrez MD Primary Care Provider [phone] Allergies Active Allergy Reactions Criticality Noted Date [...] not crush or chew. Active HYDROcodone-vadim taminophen ([place]) 7.5-325 MG tablet Take 1 tablet (7.5 [...] of 3 - PCV) 07/19/2013 07/19/2012, 02/19/2008 [id number] Vaccine (4 - season) 2024 02/14/2022, 02/07/2021, [...] Adults <6.0% Children and Adolescents <7.5% Source: [place] [employer]. Standards of medical care in diabetes,2017. Diabetes Care.2017:40 (suppl 1):S1-S135. HbA1c assay performed by an ion-exchange chromatography method that is certified traceable to the DCCT. us Shannan Shah MD LAB BLOOD ORDERABLES Final Resu lt [facility] [address] [place] [address] from Last 3 Months or Most Recently Relevant to Health Maintenance [place] [address] A[employer] Advance Directives Documents on File Type Date Recorded Patient Healthcare Project Manager Expl anation Advance Directives and Livin g Will 09/09/2022 7:44 AM Power of Hand Painter 09/09/2022 7:43 AM * Full Code (Latest Code Status on File) Date Activated Date Inactivated Comments 08/31/2022 11:29 PM 09/08/2022 3:39 PM Question Answer Comments Patient has decision-making capacity? No Healthcare Surrogate: Adult child of the patient Name of Healthcare Surrogate: Duy Rizvi Care Teams Peer Health Promoter Relationship Specialty Start Date End Date Martinez Gutierrez MD [address] [facility] [address], [place] [address] PCP - General 07/01/20
--- OUTSIDE RECORDS SUMMARY | 2024-11-23 08:02 | XMS_ITS | Referral Summary ---
Author Organization [employer] ([place], [place], [place], [place]) Address [address] [place] [address] Care Team Providers Care Office Technician Name Role Phone Unavailable Primary Care Provider [...]
--- OUTSIDE RECORDS SUMMARY | 2024-11-23 08:02 | XMS_ITS | Clinical Summary ---
Author Organization [employer] ([place], [place], [place], [place]) Address [address] [place] [address] Care Team Providers Care Managing Supervisor Name Role Phone Unavailable Primary Care Provider [...]
--- OUTSIDE RECORDS SUMMARY | 2024-11-23 08:02 | XMS_ITS | Encounter Summary ---
Author Organization [facility] Address [facility] [place] [address] Care Team Providers Care Core Driller Name Role Phone Unavailable Primary Care Provider Unavailabl e Encounter Details Date Type Department Care Team (Late st Contact Info) Description 09/09/2022 Lab Requisition [facility] [address] [place] [address] [facility] Encounter for general adult medical [...] 6:50 AM EDT 09/09/2022 8:55 AM EDT [facility] HEMATOLOGY ORDERABLES Final Res ult [facility] [address] [facility] , [place] [address] * (ABNORMAL) COMPREHENSIVE METABOLIC PANEL (09/09/2022 6:50 [...] 09/09/2022 9:31 AM EDT [facility] Creatinine 0.83 0.51 - 1.30 mg/dL 09/09/2022 9:31 AM EDT [facility] Albumin 3.5 3.2 - 4.6 gm/dL 09/09/2022 9:31 AM EDT [facility] Total Protein 5.7(L) 6.4 - 8.3 gm/dL 09/09/2022 9:31 AM EDT [facility] Bili Total 0.5 0.2 - 1.3 mg/dL 09/09/2022 9:31 AM EDT [facility] ALT 22 <=41 U/L 09/09/2022 9:31 AM EDT [facility] AST 23 <=40 U/L 09/09/2022 9:31 AM EDT [facility] Alk Phos 97 36 - 123 U/L 09/09/2022 9:31 AM EDT [facility] eGFR (CKD-EPIcr 2020) 69 >=60 mL/min/1.7 3 m2 09/09/2022 9:31 AM EDT [facility] Comment:Estimated GFR was ca lculated using the CKD-EPIcr (2020) equation refit without race. The equation is recommended by the National Kidney Foundation - [place] [employer] of Nephrology Task Force. Blood VENOUS BLOOD / Unknown 09/09/2022 6:50 AM EDT 09/09/2022 8:55 AM EDT [facility] CHEMISTRY ORDERABLES Final Resu lt [facility] [address] [facility] , [address] [address] [facility] [address] [place] [address] documented in this encounter Visit Diagnoses Diagnosis Encounter for general adult medical examination without abnormal findings Routine general medical examination at a health care facility documented in this encounter
--- OUTSIDE RECORDS SUMMARY | 2024-11-23 08:02 | XMS_ITS | Clinical Summary ---
Author Organization [facility] Address [address] [place] [address] Care Team Providers Care Coordinator Skill Training Program Name Role Phone Mallorie Puri MD Primary Care Provider Allergies Active Allergy Reactions Criticality Noted Date [...] help finding or keeping work or a ariana b? Not on file 11/26/2022 Disabilities Answer [...] & B [facility] Care Teams Coordinator Skill Training Program Relationship Specialty Start Date End Date Mallorie Puri MD PCP - General Obstetrics and Gynecology 08/05/15
--- OUTSIDE RECORDS SUMMARY | 2024-11-23 08:02 | XMS_ITS | Patient Health Record ---
[facility] Address [address] [facility] [address] [place] [id number] Care Team Providers Care Marble Installer Supervisor Name Role Phone Leonard Sabillon Primary Care Provider [phone] Allergies Allergen (clinical drug ingredient) Drug/Non Drug Allergy documented on EMR Reaction Allergy Type Onset Date Status predniSONE Side effect Drug Allergy Acti ve Adhesive Unknown Allergy Active Substance with sulfonamide structure and antibacterial mechanism of action (substance) Sulfa Antibiotics Unknown Drug Allergy Active Reason For Referral No Information Medications Medication SIG (Take, Route, Frequency, Duration) Notes Start Date End Date Status Lisinopril 20 MG TAKE 1 TABLET BY MOUTH ONCE DAILY; Duration: 30 Active Omeprazole 20 MG TAKE 1 CAPSULE BY MOUTH ONCE DAILY; Duration: 30 Active rOPINIRole HCl 0.25 MG 1 tab(s) orally at bedtime; Duration: 90 days Active Singulair 10 MG 1 tab(s) orally once a day at bed time; Duration: 90 days Active Linzess 72 MCG 1 cap(s) orally once a day 01/12/2022 Not-Taking Baclofen 10 MG TAKE 1 TABLET BY MOUTH AT BEDTIME; Duration: 90 Active Triamcinolone Acetonide 0.1 % 1 deepak applied topically 3 times a day 01/12/2022 Not-Taking Pravastatin Sodium 80 MG 1 tab(s) orally once a day; Duration: 90 days Active Lyrica 100 MG 1 cap(s) orally 3 times a day; Duration: 30 day(s) 08/16/2022 Active Estrace 0.1 MG/GM as directed intravaginally 2 times a week 01/12/2022 Active TENS UNIT NEEDED *Please review for potential replacement for e-prescription and drug interaction check* Not-Taking Ambien 5 MG 1 tab(s) orally once a day (at bedtime); Duration: 30 days 06/11/2022 Active Norvasc 5 MG 1 tab(s) orally once a day; Duration: 90 days Active Yuvafem 10 MCG 1 tab(s) intravaginally 2 times a week; Duration: 30 day(s) 12/15/2021 Not-Taking Lumigan 0.01 % 1 gtt in each affected eye once a day (in the evening); Duration: 30 day(s) Active HYDROcodone-Acetami nophen 7.5-325 MG 1 tab(s) orally 3 times a day as needed 08/16/2022 Active PreserVision AREDS 2 - 1 tab(s) chewed 2 times a day Active DULoxetine HCl 60 MG TAKE 1 CAPSULE BY MOUTH ONCE DAILY (WITH 30MG CAPSULES); Duration: 90 Active Qvar RediHaler 80 MCG/ACT INHALE 1 PUFF BY MOUTH TWICE A DAY; Duration: 60 Active Levothyroxine Sodium 25 MCG 1 tab(s) orally once a day Active Multivitamin 1 TAB(S) ONCE A DAY *Please revi ew and pick correct strength-formula tion from [employer] options. If intended option is not shown, discontinue and re-order from Quick Search* Active Macrobid 100 MG 1 capsule with food Orally every 12 hrs; Duration: 7 days 08/22/2022 Active Alphagan P 0.1 % 1 drop into affected eye Ophthalmic every 8 hrs Active DULoxetine HCl 30 MG TAKE 1 CAPSULE BY MOUTH ONCE DAILY (WITH 60MG CAPSULE); Duration: 90 Active Immunizations Vaccine Route Administration Date Status Comme nts xFlu shot-36 months and older IM Intramuscular 12/27/2005 Administered xFlu shot-36 months and older IM Intramuscular 01/10/2007 Administered xFlu shot-36 months and older IM Intramuscular 01/07/2008 Administered xFlu shot-36 months and older Unknown 12/14/2015 Administered Tetanus Tdap-Adacel (over 7yrs) Unknown 07/17/2016 Pending Tetanus Tdap-Adacel (over 7yrs) Unknown 01/09/2017 Administered Prevnar (PCV13) IM Intramuscular 07/30/2013 Administered PNEUMOVAX 23 VACCINE IM Intramuscular 01/07/2008 Administe red PNEUMOVAX 23 VACCINE Unknown 02/19/2008 Administered Fluzone Quad-Medicare (6months&older) Unknown 12/06/2020 Administered Fluzone High Dose (65yr and older) Unknown 12/23/2014 Administered Fluzone High Dose (65yr and older) Unknown 01/09/2017 Administered Fluzone High Dose (65yr and older) IM Intramuscular 12/24/2017 Administered Fluzone High Dose (65yr and older) IM Intramuscular 01/20/2019 Administered Fluzone High Dose (65yr and older) IM Intramuscular 11/24/2019 Administered Fluzone High Dose (65yr and older) IM Intramuscular 01/12/2022 Pending COVID 19 Moderna Unknown 02/07/2021 Administered COVID 19 Suzette Unknown 08/04/2020 Administered Problems Problem Type SNOMED Code ICD Code Onset Dates Problem Status W/U Status Risk Notes Problem Essential hypertension (43625544) Essential (primary) hypertension (I10) Active confirmed Problem Hypothyroidism (87737843) Hypothyroidism (acquired) (E03.9) Active confirmed Problem Vitamin D deficiency (46604787) Vitamin D deficiency (E55.9) Active confirmed Problem Essential hypertension (91858230) Essential hypertension (I10) Active confirmed Problem Fibromyalgia (441480704) Fibromyalgia (M79.7) Active confirmed Problem Restless legs syndrome (17193879) Restless legs syndrome (G25.81) Active confirmed Problem Insomnia (027924736) Insomnia due to medical condition (G47.01) Active confirmed Problem Chronic pain syndrome (950453654) Chronic pain syndrome (G89.4) Active confirmed Problem Depressive disorder (32607487) Depressive disorder (F32.9) Active confirmed Problem Chronic pain (62850052) Other chronic pain (G89.29) Active confirmed Problem Constipation (40070473) Constipation, unspecified constipation type (K59.00) Active confirmed Problem Uncomplicated moderate persistent asthma (976444436) Moderate persistent asthma without complication (J45.40) Active confirmed Problem Gastroesophageal reflux disease without esophagitis (072426212) Gastroesophageal reflux disease without esophagitis (K21.9) Active confirmed Problem Acquired hypothyroidism (700667898) Acquired hypothyroidism (E03.9) Active confirmed Problem Lumbosacral spondylosis without myelopathy (84955068) Spondylosis of lumbar region without myelopathy or radiculopathy (M47.816) Active confirmed Problem Body mass index 30.00 to 34.99 (609121845973767) BMI 31.0-31.9,adult (Z68.31) Active confirmed Problem Dyslipidemia (872329522) Dyslipidemia (E78.5) Active confirmed Problem Chronic idiopathic constipation (61389478) Chronic idiopathic constipation (K59.04) Active confirmed Problem Nightmares (832619029) Nightmares (F51.5) Active confirmed Plan Of Treatment No Information Insurance Providers Payer Name Payer Address Payer Phone Subscriber Number Group Number Insured Name Patient Relationship to Insured Coverage Start Date Coverage End Date MEDICARE PART B [address] [address] [place] [id number] [phone] [id number] MARSHALLPEREZ VELASCO Self - patient is the insured [facility] OPTIONS [address] [place] [address] [id number] PEREZ OLIVARES Self - patient is the insured Medical (General) History Medical History History ICD Code DJD/chronic back pain Costochondritis HBP IBS Asthma Allergies Anxiety HLP Eczema Hemorrhoids Diverticulosis Colon Polyps 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 Mallorie Puri in [place] Fibromyalgia - followed by Dr. Salazar in [place] Bro Right Shoulder 03/14/2016 GERD Hypothyroidism Depression Surgical History Surgery Date(Month/Year) Hysterectomy Cataract Detached Retina Cholecystectomy Hemorrhoid Colonscopy 2006, 05/2016 Sinuses 11/02/2010 RT Shoulder- [facility] by Dr. Rich alonzo 03/20/2016 Hospitalization History Reason Date(Month/Year) Kidney Infection Headache Low BP- [facility] 03/03/2015
--- OUTSIDE RECORDS SUMMARY | 2024-11-23 08:02 | XMS_ITS | Clinical Summary ---
Author Organization [facility] Address [address] [address] Phone Care Team Providers Care Extension Work Director Name Role Phone Unavailable Primary Care Provider [...]
[2024-11-23 08:29] LABS: Albumin Level 3.5 g/dl (3.5-5.0); Chloride 102 mmol/L (98-107); Potassium 3.3 mmoL/L (3.5-5.1); Sodium 139 mmol/L (136-145)
--- NOTE | 2024-11-23 08:29 | SW/DCPLANNER ---
Addendum entered by Carmen Emanuel 11/24/24 11:25: I have updated [facility]/ [facility] that patient may discharge later today. Original Note: Patient currently resides at [facility] level of care. Per son plan is to return to [facility] at time of discharge. Updated patient information has been faxed to Tiffanie garg/ [facility]. Discharge date is unknown at this time. CM will continue to follow up.
[2024-11-23 08:32] LABS: Alanine Aminotransferase 15 U/L (12-78); Albumin/Globulin Ratio 1.3 (1.1-1.8); Alkaline Phosphatase 108 U/L (38-126); Anion Gap 11.3 mEq/L (5-15); Aspartate Amino Transferase 33 U/L (14-36); Bilirubin,Total 0.8 mg/dl (0.2-1.3); Blood Urea Nitrogen 13 mg/dl (7-17); Calcium 8.5 mg/dl (8.4-10.2); Carbon Dioxide 29 mmol/L (22.0-30.0); Creatinine Clearance Estimated 54 mL/min (50-200); Creatinine,Serum 0.80 mg/dl (0.52-1.04); Estimated Glomerular Filt Rate 68 ml/min (>60); GFR (African American) 82 ML/MIN (>60); Globulin 2.6 g/dL (1.3-3.2); Glucose 104 mg/dl (74-100); Total Protein,Serum 6.1 g/dl (6.3-8.2)
[2024-11-23] MEDS: PREGABALIN 100MG CAPSULE 100 MG PO ×2 (09:18→20:19)
[2024-11-23] MEDS: ALLOPURINOL 100MG TABLET 100 MG PO (09:18)
[2024-11-23] MEDS: ESCITALOPRAM 10MG TABLET 5 MG PO (09:19)
[2024-11-23] MEDS: PANTOPRAZOLE 40MG VIAL 40 MG IV (09:19)
--- NOTE | 2024-11-23 10:13 | HMH.OTEV ---
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 They did blood work after noticing that she was a bit pale and her hemoglobin there was 3.8. Patient and son report that she has been feeling a bit off over the last few days. No reported fever, no reported GI bleed from patient or from nursing facility, no other source of bleeding noted. 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 Subjective She is hard to wake up. Pt was supine asleep in bed when therapy arrived this AM. Pt unable to wake up with mx attempts and light sternal rub. Pt's son present for session and able to report background and hx of pt. Pt currently lives at [facility] in [place] for 2 years since stroke left pt unable to use R side. 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 pt is able to feed self with setup using L hand. Pt is unable to dress/bathe self and needs assist to manipulate manual w/c for FM. Pt engaged in bed rolling . Pt was Max A x2 to roll from R to L side. Pt woke slightly for task. Pt left supine in bed with call light and all other needs within reach. Objective Right Upper Unable to move Extremity Gross ROM Bed Mobility bed mobility - rolling Assist Level Maximum x 2 (75% assist) Decrease in No Endurance Rehab OT IP prob,goals,plan Problems Date of Evaluation: 11/23/24 Rehab Potential Rehab Potential Innapropriate for Skilled Therapy Discharge Plan OT Discharge Plan At this time, pt presents at baseline and would not benefit from skilled acute OT services and interventions while admitted at [facility]. Once DC from [facility], pt able to return to [facility]. Eval Complexity Eval Charge Codes 62024 - Moderate Complexity PHYSICIAN CERTIFICATION: I certify the specified therapy services for Dang Rizvi are required, authorized, and reviewed every 30 days.
--- NOTE | 2024-11-23 10:53 | HMH.PTEV ---
Physical Therapy Evaluation Rehab PT IP Evaluation Start: 11/22/24 04:17 Freq: ONCE Status: Active Protocol: Document 11/23/24 10:48 ERI (Rec: 11/23/24 10:52 ERI [id number]) Subjective/History History History Per H&P: Patient is a 84-year-old female with with past medical history of CVA with right-sided neurologic deficits history of PE, hypothyroidism, depression who presents to the hospital alf due to fatigue and pale coloration. On further evaluation patient was found to have anemia. Patient otherwise denied chest pain shortness of breath nausea vomiting diarrhea constipation dysuria fevers and chills. Patient denied melanotic stools. Patient also denied any visible bleed. Patient is on Eliquis, aspirin, Plavix at alf facility. Subjective Subjective Pt asleep. Pt difficult to wake. OOB mobility not recommended at this time is d/t low Hgb and Hct. Pt's son in room and provided hx. Pt is a long-term alf resident who requires a omid lift for all bed<>w/c transfers. New diagnosis of No cancer in past 12 months? [facility] How much help from another person do you currently need... Turning from your Total back to your side while in a flat bed without using bedrails? Moving from lying on Total back to sitting on the side of a flat bed without using bedrails? Moving to and from a Total bed to a chair ( including a wheelchair)? Standing up from a Total chair using your arms? (e.g., wheelchair, bedside chair) Walking in hospital Total room? Climbing 3-5 steps Total with a railing? Mobility Score 6 Mobility Level [facility] Mobility 2 Bed activities/dependent transfer Mobility Calculator Rehab PT IP Eval Objective Appearance Patient Behavior Fatigued,Asleep Ambulation Patient Able to No Ambulate Balance Ability to Arise Unable Transfers Bed Transfer Ability Total/Dependent (100%) Rehab PT IP prob,goals,plan Problems Date of Evaluation: 11/23/24 Discharge Plan PT Discharge Plan Pt unable to wake for PT evaluation. PT and OT performed in-bed rolling to reposition which pt was DEP . Pt appears to be at her baseline function per provided hx of pt requiring Omid lift. Pt not appropriate for skilled acute care PT at this time d/t pt?s mobility being at baseline. Eval Complexity Eval Charge Codes 83177 - Moderate Complexity PHYSICIAN CERTIFICATION: I certify the specified therapy services for Dang Rizvi are required, authorized, and reviewed every 30 days.
[2024-11-23] MEDS: IRON SUCROSE COMPLEX 200 MG in 0.9 % SODIUM CHLORIDE 100 ML 220 MG IV (11:57)
--- NOTE | 2024-11-23 13:47 | EXP.CARD.CON ---
History of Present Illness History of Present Illness Consult date: 11/23/24 Requesting physician: Modesto Melton Consult reason: known to you Chief complaint: Anemia, GI bleed Additional Medical History:: 1. History of thrombotic CVA with hemorrhagic conversion. Right sided neurologic deficits. A. Switched from Lovenox to Plavix in 2023 2. Hyperlipidemia A. On statin therapy 3. History of pulmonary emboli, 02/2024 A. Started on Eliquis therapy 4. GI bleed with severe anemia with hemoglobin of 3.7 on 11/22/2024 A. Aspirin, Plavix and Eliquis discontinued. History of present illness: 84-year-old white female with history of CVA and right sided neurologic deficits, history of PE, hypothyroidism and depression presented from the care home due to fatigue and pale coloration. She was found to be profoundly anemic with hemoglobin of 3.7. Subsequently admitted with plans for blood transfusion. All anticoagulation and antiplatelet therapy has been held at this time. There is question of GI bleed and patient will undergo evaluation today. Cardiology consulted for recommendations on antiplatelets and anticoagulation. [facility] Disclaimer: The information contained in this section may have been updated after the patient was seen, as this information can be updated by other users. Medical History Asthma HLD (hyperlipidemia) HTN (hypertension) GERD (gastroesophageal reflux disease) Acute encephalopathy Transient alteration of awareness Abnormal electrocardiogram [ECG] [EKG] Cerebral infarction due to thrombosis of left middle cerebral artery Polyneuropathy Anxiety Aphasia Dysphasia Vertigo Ptosis Muscle weakness Chronic back pain UTI (urinary tract infection) Family History Other Cancer Coronary artery disease Diabetes Hypertension Social History (Updated 11/22/24 @ 04:16 by Jillian Vieira RN) Smoking Status: Never smoker second hand exposure: No alcohol intake: never substance use type: denies use current occupational status: retired Travel in the last 8 weeks?: None household members: none housing: care home caffeine: Yes Contact w/someone who lives/traveled outside US past 30 days?: No Exposure to someone with infectious disease in past 14 days?: No Review of Systems Review of Systems Review of systems:: unable to obtain and pertinent systems reviewed and negative unless documented below Exam Data for Last 24 hours Vital signs and Labs for Last 24 Hours: Temp Pulse Resp BP Pulse Ox O2 Del Method O2 Flow Rate 97.9 F 82 18 110/49 L 100 Nasal Cannula 2 11/23/24 13:15 11/23/24 13:15 11/23/24 13:15 11/23/24 13:15 11/23/24 13:15 11/23/24 13:00 11/23/24 13:00 Laboratory Results - last 24 hr 11/22/24 02:05: Blood Type O Positive, Antibody Screen Negative, Crossmatch (AHG) See Detail 11/22/24 22:30: Stool Occult Blood Positive A 11/23/24 07:30: WBC 6.3, RBC 2.58 L, Hgb 5.3 L*, Hct 19.5 L*, MCV 75.6 L, MCH 20.9 L, MCHC 27.7 L, RDW 19.4 H, Plt Count 214, MPV 10.9 H, Neut % (Auto) 64.0, Lymph % (Auto) 18.2, [place]aines % (Auto) 12.4 H, Eos % (Auto) 3.5, Baso % (Auto) 0.3, Neut # (Auto) 4.0, Lymph # (Auto) 1.1, [place] # (Auto) 0.8, Eos # (Auto) 0.2, Baso # (Auto) 0.0, Sodium 139, Potassium 3.3 L, Chloride 102, Carbon Dioxide 29, Anion Gap 11.3, BUN 13 D, Creatinine 0.80, Estimated Creat Clear 54, Estimated GFR 68, Est GFR ( Amer) 82, Glucose 104 H, Calcium 8.5, Total Bilirubin 0.8, AST 33 D, ALT 15, Alkaline Phosphatase 108, Total Protein 6.1 L, Albumin 3.5, Globulin 2.6, Albumin/Globulin Ratio 1.3 I & O for Last 24 hours: Intake & Output 11/21/24 11/22/24 11/23/24 11/24/24 11:59 11:59 11:59 11:59 Intake Total 210 / 210 790 / 790 110 / 110 Output Total 1290 / 1290 Balance 210 / 210 -500 / -500 110 / 110 Weight 188 lb 3.2 oz 185 lb 14.4 oz Constitutional Constitutional: no acute distress *Routine Respiratory Exam Respiratory: Present decreased breath sounds; Absent rhonchi or wheezes *Routine Cardiovascular Exam Cardiovascular: Present RRR and murmur; Absent gallop or rubs *Routine Extremities Exam Extremities: Present edema *Routine Neurological Exam Neurological: Present alert Comments: Attempts to speak but is garbled and unintelligible. Meds Home Medications and Allergies Home Medications ?Medication ?Instructions ?Recorded ?Confirmed ?Type montelukast 10 mg tablet 10 mg PO HS 01/05/21 11/22/24 History levothyroxine 25 mcg tablet 25 mcg PO DAILY 09/03/21 11/22/24 History ropinirole 0.25 mg tablet 0.25 mg PO HS 09/03/21 11/22/24 History atorvastatin 40 mg tablet 40 mg PO HS 10/16/22 11/22/24 History acetaminophen 500 mg tablet 500 mg PO Q6HP PRN Pain or fever 10/17/22 11/22/24 History polyethylene glycol 3350 17 gram 17 g PO DAILY 10/17/22 11/22/24 History oral powder packet brimonidine 0.1 % eye drops 1 drp ophthalmic (eye) BID 11/15/22 11/22/24 History (Alphagan P) docusate sodium 100 mg capsule 100 mg PO DAILY 11/15/22 11/22/24 History (Colace) omeprazole 20 mg capsule,delayed 20 mg PO DAILY 11/15/22 11/22/24 History release lisinopril 10 mg tablet 10 mg PO DAILY #90 tabs 05/28/23 11/22/24 Rx clopidogrel 75 mg tablet (Plavix) 75 mg PO DAILY #90 tabs 05/29/23 11/22/24 Rx tramadol 50 mg tablet 50 mg PO QID pain #120 tabs 12/16/23 11/22/24 Rx allopurinol 100 mg tablet 100 mg PO DAILY #30 tabs 03/09/24 11/22/24 Rx apixaban 5 mg tablet (Eliquis) 5 mg PO BID #30 tabs 03/09/24 11/22/24 Rx baclofen 10 mg tablet 10 mg PO HS 03/09/24 11/22/24 History duloxetine 30 mg capsule,delayed 30 mg PO DAILY 03/09/24 11/22/24 History release escitalopram oxalate 5 mg tablet 5 mg PO DAILY 03/09/24 11/22/24 History pregabalin 100 mg capsule 100 mg PO TID 03/09/24 11/22/24 History vit C 250 mg-vit E 90 mg-zinc 40 1 tab PO DAILY 03/09/24 11/22/24 History mg-copper 1 [id number]-fhiydh capsule (PreserVision AREDS-2) aripiprazole 2 mg tablet (Abilify) 2.5 mg PO DAILY 11/22/24 11/22/24 History aspirin 81 mg tablet 81 mg PO DAILY 11/22/24 11/22/24 History loratadine 10 mg tablet (Claritin) 10 mg PO DAILY 11/22/24 11/22/24 History melatonin 3 mg tablet 3 mg PO HS 11/22/24 11/22/24 History metoprolol succinate 25 mg 25 mg PO DAILY 11/22/24 11/22/24 History tablet,extended release 24 hr New Prescriptions to Start Prescriptions: Allergies Allergy/AdvReac Type Severity Reaction Status Date / Time Sulfa (Sulfonamide Allergy Mild unkno Verified 11/22/24 02:09 Antibiotics) (SULFA (SULFONAMIDE ANTIBIOTICS)) Assessment and Plan *Assessment and plan (1) Anemia: Status: Acute Qualifiers: Anemia type: unspecified type Qualified Code(s): D64.9 - Anemia, unspecified Category: Medical Code(s): D64.9 - Anemia, unspecified (2) Right hemiplegia: Status: Chronic Category: Medical Code(s): G81.91 - Hemiplegia, unspecified affecting right dominant side (3) CVA, old, cognitive deficits: Status: Acute Category: Medical Code(s): I69.319 - Unspecified symptoms and signs involving cognitive functions following cerebral infarction (4) Generalized weakness: Problem Comment: Subjective, no evidence of profound weakness on exam, reportedly only since August 2021 Status: Chronic Category: Medical Code(s): R53.1 - Weakness Plan 1. Profound anemia with possible GI bleed -Aspirin, Plavix and Eliquis have been stopped and would recommend not restarting them unless neuro insists. -Blood transfusion is underway -GI evaluation in progress 2. Old CVA with right hemiplegia and generalized weakness -Resides in care home 3. Old pulmonary embolus, 02/2024 -[place] to be provoked due to sedentary status and pneumonia Discussed with Dr. Bright, and would recommend discontinuing all antiplatelets and anticoagulation due to profound anemia with GI bleed. Nothing further to add at this time. Await results of GI evaluation
--- NOTE | 2024-11-23 14:40 | P.PNANES_ITS ---
[facility] Disclaimer: The information contained in this section may have been updated after the patient was seen, as this information can be updated by other users. Medical History Asthma HLD (hyperlipidemia) HTN (hypertension) GERD (gastroesophageal reflux disease) Acute encephalopathy Transient alteration of awareness Abnormal electrocardiogram [ECG] [EKG] Cerebral infarction due to thrombosis of left middle cerebral artery Polyneuropathy Anxiety Aphasia Dysphasia Vertigo Ptosis Muscle weakness Chronic back pain UTI (urinary tract infection) Family History Other Cancer Coronary artery disease Diabetes Hypertension Social History (Updated 11/22/24 @ 04:16 by Jillian Vieira RN) Smoking Status: Never smoker second hand exposure: No alcohol intake: never substance use type: denies use current occupational status: retired Travel in the last 8 weeks?: None household members: none housing: senior living caffeine: Yes Contact w/someone who lives/traveled outside US past 30 days?: No Exposure to someone with infectious disease in past 14 days?: No [facility] Anesthesia Checklist Patient Identification Patient Identification: Arm Band and Family Structural Data Admitted From: Inpatient Planned Operative Procedure/s: EGD Consent for Planned Operative Procedure(s) Verified: Yes Verified Documents: Surgical Consent and History and Physical NPO Status Verified Time NPO: 00:00 Additional verifications Patient : No Anesthesia Reactions: No Hx Blood Transfusions: No Blood Transfusion Reaction: No Cephalosporin Allergy: No Previous Colonoscopy: Yes Airway Assessment Mallampati Score:: Class II C-Spine Mobility Assessed: Yes TMJ Mobility Assessed: Yes Dentition: Poor Dentition Neurological Assessment Level of Consciousness: Appropriate, Follows Commands and Lethargic Hx Seizures: No Numbness or tingling in extremities: No Anesthesia Plan Anesthesia Risk discussed: Yes ASA Class: III Anesthesia Type: MAC Preoperative Comments Pre-Operative Comments: Multiple body failure
--- NOTE | 2024-11-23 15:12 | EXP.HP ---
History of Present Illness *Admission Date: 11/22/24 *History of present illness: Mrs. Rizvi is an 84-year-old female who was sent from the residential secondary to malaise, lethargy and pallor. In the ED, the patient's hemoglobin was 3.9 and hematocrit 15.8 and she was admitted with symptomatic anemia. She did have microcytic indices and is Hemoccult positive. There was no reported melena or hematochezia. The patient serum iron 32, iron saturation 8.26%, ferritin 6.09 and TIBC 387 were consistent with moderate iron deficiency anemia. The patient did not have any imaging of the abdomen. The patient has been on Eliquis, Plavix and aspirin at the nursing facility. [facility] Disclaimer: The information contained in this section may have been updated after the patient was seen, as this information can be updated by other users. Medical History (Updated 11/23/24 @ 15:16 by Eddy Bhat II, MD) Asthma HLD (hyperlipidemia) HTN (hypertension) GERD (gastroesophageal reflux disease) Acute encephalopathy Transient alteration of awareness Abnormal electrocardiogram [ECG] [EKG] Cerebral infarction due to thrombosis of left middle cerebral artery Polyneuropathy Anxiety Aphasia Dysphasia Vertigo Ptosis Muscle weakness Chronic back pain UTI (urinary tract infection) Family History Other Cancer Coronary artery disease Diabetes Hypertension Social History (Updated 11/22/24 @ 04:16 by Jililan Vieira RN) Smoking Status: Never smoker second hand exposure: No alcohol intake: never substance use type: denies use current occupational status: retired Travel in the last 8 weeks?: None household members: none housing: residential caffeine: Yes Contact w/someone who lives/traveled outside US past 30 days?: No Exposure to someone with infectious disease in past 14 days?: No Other Medical History Have you received the Flu Vaccine for this season: No Have you received the Pneumonia Vaccine: No Review of Systems Review of Systems Review of systems (narrative): Negative *Cardiovascular Comments: Negative *Gastrointestinal Comments: Negative *Genitourinary Comments: Negative *Musculoskeletal Comments: Negative *Neurologic Comments: Negative Meds Home Medications and Allergies Home Medications ?Medication ?Instructions ?Recorded ?Confirmed ?Type montelukast 10 mg tablet 10 mg PO HS 01/05/21 11/22/24 History levothyroxine 25 mcg tablet 25 mcg PO DAILY 09/03/21 11/22/24 History ropinirole 0.25 mg tablet 0.25 mg PO HS 09/03/21 11/22/24 History atorvastatin 40 mg tablet 40 mg PO HS 10/16/22 11/22/24 History acetaminophen 500 mg tablet 500 mg PO Q6HP PRN Pain or fever 10/17/22 11/22/24 History polyethylene glycol 3350 17 gram 17 g PO DAILY 10/17/22 11/22/24 History oral powder packet brimonidine 0.1 % eye drops 1 drp ophthalmic (eye) BID 11/15/22 11/22/24 History (Alphagan P) docusate sodium 100 mg capsule 100 mg PO DAILY 11/15/22 11/22/24 History (Colace) omeprazole 20 mg capsule,delayed 20 mg PO DAILY 11/15/22 11/22/24 History release lisinopril 10 mg tablet 10 mg PO DAILY #90 tabs 05/28/23 11/22/24 Rx clopidogrel 75 mg tablet (Plavix) 75 mg PO DAILY #90 tabs 05/29/23 11/22/24 Rx tramadol 50 mg tablet 50 mg PO QID pain #120 tabs 12/16/23 11/22/24 Rx allopurinol 100 mg tablet 100 mg PO DAILY #30 tabs 03/09/24 11/22/24 Rx apixaban 5 mg tablet (Eliquis) 5 mg PO BID #30 tabs 03/09/24 11/22/24 Rx baclofen 10 mg tablet 10 mg PO HS 03/09/24 11/22/24 History duloxetine 30 mg capsule,delayed 30 mg PO DAILY 03/09/24 11/22/24 History release escitalopram oxalate 5 mg tablet 5 mg PO DAILY 03/09/24 11/22/24 History pregabalin 100 mg capsule 100 mg PO TID 03/09/24 11/22/24 History vit C 250 mg-vit E 90 mg-zinc 40 1 tab PO DAILY 03/09/24 11/22/24 History mg-copper 1 [id number] capsule (PreserVision AREDS-2) aripiprazole 2 mg tablet (Abilify) 2.5 mg PO DAILY 11/22/24 11/22/24 History aspirin 81 mg tablet 81 mg PO DAILY 11/22/24 11/22/24 History loratadine 10 mg tablet (Claritin) 10 mg PO DAILY 11/22/24 11/22/24 History melatonin 3 mg tablet 3 mg PO HS 11/22/24 11/22/24 History metoprolol succinate 25 mg 25 mg PO DAILY 11/22/24 11/22/24 History tablet,extended release 24 hr New Prescriptions to Start Prescriptions: Allergies Allergy/AdvReac Type Severity Reaction Status Date / Time Sulfa (Sulfonamide Allergy Mild unkno Verified 11/22/24 02:09 Antibiotics) (SULFA (SULFONAMIDE ANTIBIOTICS)) Exam Data for Last 24 hours Vital signs and Labs for Last 24 Hours: Temp Pulse Resp BP Pulse Ox O2 Del Method O2 Flow Rate 97 F L 79 16 143/43 H 99 Nasal Cannula 2 11/23/24 14:57 11/23/24 14:57 11/23/24 14:57 11/23/24 14:57 11/23/24 14:57 11/23/24 13:00 11/23/24 13:00 Laboratory Results - last 24 hr 11/22/24 02:05: Blood Type O Positive, Antibody Screen Negative, Crossmatch (AHG) See Detail 11/22/24 22:30: Stool Occult Blood Positive A 11/23/24 07:30: WBC 6.3, RBC 2.58 L, Hgb 5.3 L*, Hct 19.5 L*, MCV 75.6 L, MCH 20.9 L, MCHC 27.7 L, RDW 19.4 H, Plt Count 214, MPV 10.9 H, Neut % (Auto) 64.0, Lymph % (Auto) 18.2, [place] % (Auto) 12.4 H, Eos % (Auto) 3.5, Baso % (Auto) 0.3, Neut # (Auto) 4.0, Lymph # (Auto) 1.1, [place] # (Auto) 0.8, Eos # (Auto) 0.2, Baso # (Auto) 0.0, Sodium 139, Potassium 3.3 L, Chloride 102, Carbon Dioxide 29, Anion Gap 11.3, BUN 13 D, Creatinine 0.80, Estimated Creat Clear 54, Estimated GFR 68, Est GFR ( Amer) 82, Glucose 104 H, Calcium 8.5, Total Bilirubin 0.8, AST 33 D, ALT 15, Alkaline Phosphatase 108, Total Protein 6.1 L, Albumin 3.5, Globulin 2.6, Albumin/Globulin Ratio 1.3 I & O for Last 24 hours: Intake & Output 11/20/24 11/21/24 11/22/24 11/23/24 23:59 23:59 23:59 23:59 Intake Total 820 / 1000 540 / 540 Output Total 0 / 0 1290 / 1290 Balance 820 / 1000 -750 / -750 Weight 188 lb 3.2 oz 185 lb 14.4 oz *Routine HEENT Exam Head: Present normocephalic Eye: Present EOMI and PERRL ENT: Present mucous membranes moist *Routine Neck Exam Neck: Present supple *Routine Respiratory Exam Respiratory: Present CTA bilaterally *Routine Cardiovascular Exam Cardiovascular: Present RRR *Routine Abdominal Exam Abdominal: Present soft and normoactive bowel sounds; Absent tenderness *Routine Rectal Exam Rectal:: deferred *Routine Genitalia Exam Genitalia:: deferred *Routine Extremities Exam Extremities: Absent cyanosis, clubbing or edema *Routine Skin Exam Skin: Present warm; Absent rash *Routine Neurological Exam Neurological: Present alert and oriented X3 Assessment and Plan *Assessment and plan (1) Iron deficiency anemia: Status: Acute Category: Medical Code(s): D50.9 - Iron deficiency anemia, unspecified (2) Positive occult stool blood test: Status: Acute Category: Medical Code(s): R19.5 - Other fecal abnormalities Plan A/P: 1. Profound iron deficiency anemia with Hemoccult positive stool is the preprocedural diagnosis. The patient will be anesthetized/sedated using MAC sedation. The patient has been seen and examined. Cardiac and lung assessment prior to the examination is stable. Proceed with planned diagnostic EGD.
--- NOTE | 2024-11-23 15:17 | P.PCN_ITS ---
[facility] Procedure Note Date: 11/23/24 Time: 15:43 Procedure Note:: Upper Endoscopy Procedure Report: Esophagogastroduodenoscopy with cold biopsies and TTS balloon dilation Endoscopost: Eddy Bhat II, MD Referring Physician: Rodo Manzo MD Date of Procedure: November 23, 2024 Equipment: Olympus GIF-1100 standard upper endoscope Sedation: MAC sedation Indications: Mrs. Rizvi is an 84-year-old inpatient female who is here for diagnostic upper endoscopy. She was sent from the correction secondary to malaise, lethargy and pallor. In the ED, the patient's hemoglobin was 3.9 and hematocrit 15.8 and she was admitted with symptomatic anemia. She did have microcytic indices and is Hemoccult positive. The patient does report some dark bowel movements. She has had some generalized abdominal discomfort. She does report constipation. Her last colonoscopy was many years ago. The patient serum iron 32, iron saturation 8.26%, ferritin 6.09 and TIBC 387 were consistent with moderate iron deficiency anemia. The patient did not have any imaging of the abdomen. The patient has been on Eliquis, Plavix and aspirin at the nursing facility. Procedure: Prior to the procedure, a history and physical exam was performed, and patient's medications and allergies were reviewed. The risks, benefits and alternatives of the sedation and procedure were discussed with the patient. All questions were answered and informed consent was obtained. The patient was brought to the procedure room. Patient identification and proposed procedure were verified by the physician and the nurse. The patient was placed in a left lateral decubitus position and the scope was passed under direct vision. Throughout the procedure, the patient's blood pressure, pulse, and oxygen saturations were monitored continuously. The upper GI endoscopy was accomplished without difficulty. The patient tolerated the procedure well. Findings: The scope was passed directly into the upper esophagus and advanced to the third portion of the duodenum. The post bulbar duodenum and duodenal bulb were normal with normal mucosa and conniventes. The scope was withdrawn through a normal duodenal bulb and pylorus into the stomach. The antrum of the stomach was normal. There was some mild chronic gastritis of the body and fundus of the stomach. Cold biopsies were taken along the lesser curvature of the stomach to rule out H. pylori. Upon retroflexion there was a very small sliding 1 to 2 cm hiatal hernia. The scope was then withdrawn into the esophagus. There was no evidence of reflux esophagitis or Cabrera's. There were a couple of esophageal webs and the esophagus was dilated to 18 mm (54 [place]) with a TTS hydrostatic balloon with minimal resistance. The remainder of the esophageal mucosa was normal. Impression: 1. Mild chronic proximal gastritis Plan: There was no etiology for the patient's profound iron deficiency anemia and Hemoccult positive stool. I would recommend diagnostic colonoscopy and this will be based on patient and family's desire to proceed further to get answers. I would recommend Venofer iron infusion and will check CEA level.
--- NOTE | 2024-11-23 16:08 | P.PN_ITS ---
Subjective *Date: 11/23/24 *Time: 16:08 Interval history: Pleasantly demented on exam today. No active distress. Son at bedside, no acute concerns. Pending EGD. Exam Data for Last 24 hours Vital signs and Labs for Last 24 Hours: Temp Pulse Resp BP Pulse Ox O2 Del Method O2 Flow Rate 97 F L 79 16 143/43 H 99 Nasal Cannula 2 11/23/24 14:57 11/23/24 14:57 11/23/24 14:57 11/23/24 14:57 11/23/24 14:57 11/23/24 13:00 11/23/24 13:00 Laboratory Results - last 24 hr 11/22/24 02:05: Blood Type O Positive, Antibody Screen Negative, Crossmatch ([facility]) See Detail 11/22/24 22:30: Stool Occult Blood Positive A 11/23/24 07:30: WBC 6.3, RBC 2.58 L, Hgb 5.3 L*, Hct 19.5 L*, MCV 75.6 L, MCH 20.9 L, MCHC 27.7 L, RDW 19.4 H, Plt Count 214, MPV 10.9 H, Neut % (Auto) 64.0, Lymph % (Auto) 18.2, [place] % (Auto) 12.4 H, Eos % (Auto) 3.5, Baso % (Auto) 0.3, Neut # (Auto) 4.0, Lymph # (Auto) 1.1, [place] # (Auto) 0.8, Eos # (Auto) 0.2, Baso # (Auto) 0.0, Sodium 139, Potassium 3.3 L, Chloride 102, Carbon Dioxide 29, Anion Gap 11.3, BUN 13 D, Creatinine 0.80, Estimated Creat Clear 54, Estimated GFR 68, Est GFR ( Amer) 82, Glucose 104 H, Calcium 8.5, Total Bilirubin 0.8, AST 33 D, ALT 15, Alkaline Phosphatase 108, Total Protein 6.1 L, Albumin 3.5, Globulin 2.6, Albumin/Globulin Ratio 1.3 I & O for Last 24 hours: Intake & Output 11/20/24 11/21/24 11/22/24 11/23/24 23:59 23:59 23:59 23:59 Intake Total 820 / 1000 540 / 540 Output Total 0 / 0 1290 / 1290 Balance 820 / 1000 -750 / -750 Weight 85.366 kg 84.323 kg Constitutional Constitutional: no acute distress Comments: Pleasantly demented. *Routine HEENT Exam Head: Present normocephalic Eye: Present EOMI and PERRL ENT: Present mucous membranes moist *Routine Neck Exam Neck: Present supple; Absent lymphadenopathy *Routine Respiratory Exam Respiratory: Present CTA bilaterally *Routine Cardiovascular Exam Cardiovascular: Present RRR *Routine Abdominal Exam Abdominal: Present soft and normoactive bowel sounds; Absent tenderness *Routine Extremities Exam Extremities: Present edema; Absent cyanosis or clubbing *Routine Skin Exam Skin: Present warm; Absent rash *Routine Neurological Exam Neurological: Present alert Assessment and Plan *Assessment and plan (1) Anemia: Status: Acute Qualifiers: Anemia type: unspecified type Qualified Code(s): D64.9 - Anemia, unspecified Category: Medical Code(s): D64.9 - Anemia, unspecified (2) Pulmonary embolism: Status: Acute Category: Medical Code(s): I26.99 - Other pulmonary embolism without acute cor pulmonale (3) Right hemiplegia: Status: Chronic Category: Medical Code(s): G81.91 - Hemiplegia, unspecified affecting right dominant side (4) CVA, old, cognitive deficits: Status: Acute Category: Medical Code(s): I69.319 - Unspecified symptoms and signs involving cognitive functions following cerebral infarction (5) Hyperlipidemia: Status: Acute Qualifiers: Hyperlipidemia type: unspecified Qualified Code(s): E78.5 - Hyperlipidemia, unspecified Category: Medical Code(s): E78.5 - Hyperlipidemia, unspecified (6) Hypertension: Status: Acute Qualifiers: Hypertension type: unspecified Qualified Code(s): I10 - Essential (primary) hypertension Category: Medical Code(s): I10 - Essential (primary) hypertension Plan Ms. Rizvi is a 84-year-old female with with past medical history of CVA with right-sided neurologic deficits history of PE, hypothyroidism, depression who presents to the hospital from custodial due to fatigue and pale coloration. On further evaluation patient was found to have anemia and was admitted for the same with a hemoglobin of 3.9. #Acute on chronic microcytic anemia #Iron deficiency anemia #GI bleed ? Presented with progressive fatigue, and pale coloration. Initial hemoglobin 3.9, MCV 73.5. FOBT positive. ? Cardiology recommends discontinuing aspirin, Plavix, Eliquis for CVA due to profound anemia and GI bleed. ? 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 Hemoglobin improved to 5.3 after first PRBC transfusion. ? Low iron level 32, ferritin 6.01 on 11/22/2024. ? GI consulted, s/p EGD with only mild gastritis. Recommends diagnostic colonoscopy pending goals of care discussion with family. Will follow-up on CEA level. ? Given IV Venofer 200 mg x 2. ? Transition from IV to p.o. Protonix 40 mg. ? Pending transport of second PRBC from [place] due to antibody testing. Follow-up post transfusion H&H. ? Follow-up morning CBC. Chronic medical conditions History of CVA with right-sided weakness Paraplegia History of PE on Eliquis history of CAD ? Hold aspirin, Plavix, Eliquis. Continue home duloxetine, pregabalin, Requip. #Hypothyroidism ? Continue home levothyroxine 25 mcg. Follow-up TFTs. DVT prophylaxis-SCDs only due to GI bleed
[2024-11-23 16:34] LABS: Hematocrit 28.2 % (37.0-47.0)
[2024-11-23 16:39] LABS: Hemoglobin 8.6 g/dL (12.2-16.2)
[2024-11-23] MEDS: ROPINIROLE HCL 0.25 MG TABLET PO (20:19)
[2024-11-23] MEDS: BACLOFEN 10MG TABLET 10 MG PO (20:19)
[2024-11-23] MEDS: PANTOPRAZOLE 40MG TABLET 40 MG PO (20:20)
[2024-11-23] MEDS: PEG-ELECTROLYTE SOLN 4000ML BOTTLE 4000 ML PO (20:22)
--- NOTE | 2024-11-23 20:30 | PC.NURSE ---
patient started bowel prep drink with PM medications - took a couple sips and refuses to drink anymore. Primary nurse Nazario RN notified, will encourage drinks t/o the night.
[2024-11-24] VITALS (7 sets, daily range): BP systolic 130–140; BP diastolic 56–86; PULSE 84–94; RESP 16–20; TEMP 36.6–36.8; O2SAT 93–98; BMI 29.6
--- NOTE | 2024-11-24 05:48 | PC.NURSE ---
Pt has remained confused only alert to self. She has been turned throughout the shift. Attempted multiple times for pt to drink bowel prep. She was able to drink about a cup before refusing anymore. She has remained very lethargic. Currently resting with bed alarm in place.
[2024-11-24] MEDS: LEVOTHYROXINE 25MCG (0.025MG) TAB 25 MCG PO (06:26)
[2024-11-24 09:18] LABS: Hematocrit 29.0 % (37.0-47.0); Hemoglobin 8.6 g/dL (12.2-16.2); Immature Granulocytes % 3.0 %; Mean Corpuscular HGB Conc 29.7 g/dL (31.8-35.4); Mean Corpuscular Hemoglobin 24.2 pg (27.0-31.2); Mean Corpuscular Volume 81.7 fl (81-99); Nucleated Red Blood Cells % 1.9 %; Platelet Count 208 K/mm3 (142-424); Red Blood Count 3.55 M/mm3 (4.20-5.40); Red Cell Distribution Width-SD 57.6 fL; White Blood Count 7.9 K/mm3 (4.8-10.8)
[2024-11-24 09:33] LABS: Albumin Level 3.2 g/dl (3.5-5.0); Chloride 102 mmol/L (98-107); Potassium 3.1 mmoL/L (3.5-5.1); Sodium 140 mmol/L (136-145)
[2024-11-24 09:36] LABS: Alanine Aminotransferase 13 U/L (12-78); Albumin/Globulin Ratio 1.3 (1.1-1.8); Alkaline Phosphatase 109 U/L (38-126); Anion Gap 10.1 mEq/L (5-15); Aspartate Amino Transferase 38 U/L (14-36); Bilirubin,Total 0.9 mg/dl (0.2-1.3); Blood Urea Nitrogen 7 mg/dl (7-17); Calcium 8.5 mg/dl (8.4-10.2); Carbon Dioxide 31 mmol/L (22.0-30.0); Creatinine Clearance Estimated 53 mL/min (50-200); Creatinine,Serum 0.70 mg/dl (0.52-1.04); Estimated Glomerular Filt Rate 79 ml/min (>60); GFR (African American) 96 ML/MIN (>60); Globulin 2.5 g/dL (1.3-3.2); Glucose 101 mg/dl (74-100); Total Protein,Serum 5.7 g/dl (6.3-8.2)
[2024-11-24] MEDS: ALLOPURINOL 100MG TABLET 100 MG PO (09:57)
[2024-11-24] MEDS: ESCITALOPRAM 10MG TABLET 5 MG PO (09:57)
[2024-11-24] MEDS: PREGABALIN 100MG CAPSULE 100 MG PO (09:57)
[2024-11-24 09:58] LABS: Thyroid Stimulating Hormone 2.62 uIU/mL (0.465-4.68)
[2024-11-24 10:39] LABS: Vitamin B12 563 pg/mL (239-931)
--- NOTE | 2024-11-24 11:54 | P.PN_ITS ---
Subjective Subjective Date: 11/24/24 Time: 11:54 Principal diagnosis: marked Anemia Interval history: 84 yo WF in bed sleeping. Family member in room. Voices no concerns at this time. Exam Data for Last 24 hours Vital signs and Labs for Last 24 Hours: Temp Pulse Resp BP Pulse Ox O2 Del Method O2 Flow Rate 98.2 F 90 20 140/56 L 98 Nasal Cannula 1 11/24/24 11:38 11/24/24 11:38 11/24/24 11:38 11/24/24 11:38 11/24/24 11:38 11/24/24 11:38 11/24/24 11:38 Laboratory Results - last 24 hr 11/22/24 02:05: Blood Type O Positive, Antibody Screen Negative, Antibody Identification Inconclusive, Crossmatch ([facility]) See Detail 11/23/24 16:30: Hgb 8.6 L D, Hct 28.2 L 11/24/24 08:41: WBC 7.9 D, RBC 3.55 L D, Hgb 8.6 L, Hct 29.0 L, MCV 81.7, MCH 24.2 L, MCHC 29.7 L, RDW 20.0 H, Plt Count 208, MPV 11.0 H, Neut % (Auto) 67.8, Lymph % (Auto) 14.6, [place] % (Auto) 9.9 H, Eos % (Auto) 3.7, Baso % (Auto) 1.0, Neut # (Auto) 5.3, Lymph # (Auto) 1.2, [place] # (Auto) 0.8, Eos # (Auto) 0.3, Baso # (Auto) 0.1, Sodium 140, Potassium 3.1 L, Chloride 102, Carbon Dioxide 31 H, Anion Gap 10.1, BUN 7 D, Creatinine 0.70, Estimated Creat Clear 53, Estimated GFR 79, Est GFR ( Amer) 96, Glucose 101 H, Calcium 8.5, Total Bilirubin 0.9, AST 38 H, ALT 13, Alkaline Phosphatase 109, Total Protein 5.7 L, Albumin 3.2 L, Globulin 2.5, Albumin/Globulin Ratio 1.3, Vitamin B12 563, TSH 2.62 I & O for Last 24 hours: Intake & Output 11/21/24 11/22/24 11/23/24 11/24/24 11:59 11:59 11:59 11:59 Intake Total 210 / 210 790 / 790 460 / 460 Output Total 1290 / 1290 250 / 250 Balance 210 / 210 -500 / -500 210 / 210 Weight 188 lb 3.2 oz 185 lb 14.4 oz 184 lb 3 oz Constitutional Constitutional: no acute distress *Routine Cardiovascular Exam Cardiovascular: Present RRR Progress Note: A&P Assessment and plan (1) Anemia: Status: Acute (2) Right hemiplegia: Status: Chronic (3) CVA, old, cognitive deficits: Status: Acute (4) Hyperlipidemia: Status: Acute (5) Hypertension: Status: Acute Assessment and Plan Assessment and Plan for All Diagnoses:: 1. Profound anemia with possible GI bleed -Aspirin, Plavix and Eliquis have been stopped . -Blood transfusion is complete. Hgb now 8.6 -EGD showed only mild chronic proximal gastritis 2. Old CVA with right hemiplegia and generalized weakness -Resides in half-way 3. Old pulmonary embolus, 02/2024 -[place] to be provoked due to sedentary status and pneumonia -will stop eliquis Nothing to add. If Hgb remains stable, then consider restarting plavix for history of CVA. Please call if needed.
[2024-11-24] MEDS: BUMETANIDE 1MG/4ML VIAL 1 MG IV (12:23)
--- NOTE | 2024-11-24 14:33 | EXP.PN ---
Subjective *Date: 11/24/24 *Time: 14:33 Interval history: Patient resting comfortably today and appears clinically improved. The patient did refuse her bowel preparation last evening for colonoscopy. The patient has received Venofer iron infusions. Exam Data for Last 24 hours Vital signs and Labs for Last 24 Hours: Temp Pulse Resp BP Pulse Ox O2 Del Method O2 Flow Rate 98.2 F 90 20 140/56 L 98 Nasal Cannula 1 11/24/24 11:38 11/24/24 12:00 11/24/24 11:38 11/24/24 11:38 11/24/24 11:38 11/24/24 13:00 11/24/24 11:38 Laboratory Results - last 24 hr 11/22/24 02:05: Antibody Identification Inconclusive, Crossmatch ([facility]) See Detail 11/23/24 16:30: Hgb 8.6 L D, Hct 28.2 L 11/24/24 08:41: WBC 7.9 D, RBC 3.55 L D, Hgb 8.6 L, Hct 29.0 L, MCV 81.7, MCH 24.2 L, MCHC 29.7 L, RDW 20.0 H, Plt Count 208, MPV 11.0 H, Neut % (Auto) 67.8, Lymph % (Auto) 14.6, [place] % (Auto) 9.9 H, Eos % (Auto) 3.7, Baso % (Auto) 1.0, Neut # (Auto) 5.3, Lymph # (Auto) 1.2, [place] # (Auto) 0.8, Eos # (Auto) 0.3, Baso # (Auto) 0.1, Sodium 140, Potassium 3.1 L, Chloride 102, Carbon Dioxide 31 H, Anion Gap 10.1, BUN 7 D, Creatinine 0.70, Estimated Creat Clear 53, Estimated GFR 79, Est GFR ( Amer) 96, Glucose 101 H, Calcium 8.5, Total Bilirubin 0.9, AST 38 H, ALT 13, Alkaline Phosphatase 109, Total Protein 5.7 L, Albumin 3.2 L, Globulin 2.5, Albumin/Globulin Ratio 1.3, Vitamin B12 563, TSH 2.62 I & O for Last 24 hours: Intake & Output 11/21/24 11/22/24 11/23/24 11/24/24 23:59 23:59 23:59 23:59 Intake Total 820 / 1000 540 / 640 100 / 100 Output Total 0 / 0 1290 / 1540 650 / 650 Balance 820 / 1000 -750 / -900 -550 / -550 Weight 188 lb 3.2 oz 185 lb 14.4 oz 184 lb 3 oz Constitutional Constitutional: no acute distress *Routine HEENT Exam Head: Present normocephalic Eye: Present EOMI and PERRL ENT: Present mucous membranes moist *Routine Neck Exam Neck: Present supple; Absent lymphadenopathy *Routine Respiratory Exam Respiratory: Present CTA bilaterally *Routine Cardiovascular Exam Cardiovascular: Present RRR *Routine Abdominal Exam Abdominal: Present soft and normoactive bowel sounds; Absent tenderness *Routine Extremities Exam Extremities: Absent cyanosis, clubbing or edema *Routine Skin Exam Skin: Present warm; Absent rash *Routine Neurological Exam Neurological: Present alert and oriented X3 Assessment and Plan *Assessment and plan (1) Iron deficiency anemia: Status: Acute Category: Medical Code(s): D50.9 - Iron deficiency anemia, unspecified (2) Positive occult stool blood test: Status: Acute Category: Medical Code(s): R19.5 - Other fecal abnormalities Plan 1. Iron deficiency anemia with Hemoccult positive stool. It has been many years since last colonoscopy. The patient did refuse the bowel prep. Her hemoglobin hematocrit are markedly improved at 8.6 and 29.0. She did have an elevated sed rate of 131. Her C-reactive protein was elevated at 153.3. I think [facility] as long as she is tolerating food. She should complete Venofer infusions. I do feel that there is some need still to do a colonoscopy. I will obtain her CEA level which was ordered. If the patient redevelops iron deficiency with anemia, we will then need to readdress. If she cannot tolerate oral bowel prep, we may need to do this with NG tube. I have discussed this with the patient and family.
--- NOTE | 2024-11-24 15:16 | EXP.DC.SUM ---
General Admission date:: 11/22/24 HPI HPI HPI: Mrs. Rizvi is an 84-year-old female who was sent from the group home secondary to malaise, lethargy and pallor. In the ED, the patient's hemoglobin was 3.9 and hematocrit 15.8 and she was admitted with symptomatic anemia. She did have microcytic indices and is Hemoccult positive. There was no reported melena or hematochezia. The patient serum iron 32, iron saturation 8.26%, ferritin 6.09 and TIBC 387 were consistent with moderate iron deficiency anemia. The patient did not have any imaging of the abdomen. The patient has been on Eliquis, Plavix and aspirin at the nursing facility. Hospital Course Hospital Course Hospital Course: Ms. Rizvi is a 84-year-old female with with past medical history of CVA with right-sided neurologic deficits history of PE, hypothyroidism, depression who presents to the hospital from group home due to fatigue and pale coloration. On further evaluation patient was found to have profound anemia and was admitted for the same with a hemoglobin of 3.9. #Acute on chronic microcytic anemia #Iron deficiency anemia #GI bleed ? Presented with progressive fatigue, and pale coloration. Initial hemoglobin 3.9, MCV 73.5. FOBT positive. ? 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 Hemoglobin stable at 8.6 x 2 days after 2 units PRBC transfusion. ? Low iron level 32, ferritin 6.01 on 11/22/2024. Given IV Venofer 200 mg x 2. ? GI consulted, s/p EGD with only mild gastritis. Recommends diagnostic colonoscopy, but patient did not tolerate GoLytely bowel prep. Discussed extensively with family, will reevaluate on an outpatient basis if patient becomes anemic again. ? Cardiology recommends discontinuing aspirin, Eliquis but continuing Plavix 75 mg for CVA due to profound anemia and GI bleed. ? Recommend repeat CBC on 11/30/2024. If patient becomes anemic again, will need strong consideration for colonoscopy. ? Discharged with ferrous sulfate 325 mg twice daily, MiraLAX 17 g. #Hypertension ? Discontinued home lisinopril, started bumetanide 0.5 mg daily for lower extremity edema. Continue home metoprolol succinate 25 mg. History of CVA with right-sided weakness Paraplegia History of PE on Eliquis history of CAD ? Cardiology recommends discontinuing aspirin, Eliquis but continuing Plavix 75 mg for CVA due to profound anemia and GI bleed. Continue home duloxetine, pregabalin, Requip. #Hypothyroidism ? Continue home levothyroxine 25 mcg. TFTs stable. Total time spent on discharge: 32 minutes on chart review, counseling, documentation, and direct care with patient. Exam Data for Last 24 hours Vital signs and Labs for Last 24 Hours: Temp Pulse Resp BP Pulse Ox O2 Del Method O2 Flow Rate 98.2 F 90 20 140/56 L 98 Nasal Cannula 1 11/24/24 11:38 11/24/24 12:00 11/24/24 11:38 11/24/24 11:38 11/24/24 11:38 11/24/24 15:00 11/24/24 11:38 Laboratory Results - last 24 hr 11/22/24 02:05: Antibody Identification Inconclusive 11/23/24 16:30: Hgb 8.6 L D, Hct 28.2 L 11/24/24 08:41: WBC 7.9 D, RBC 3.55 L D, Hgb 8.6 L, Hct 29.0 L, MCV 81.7, MCH 24.2 L, MCHC 29.7 L, RDW 20.0 H, Plt Count 208, MPV 11.0 H, Neut % (Auto) 67.8, Lymph % (Auto) 14.6, [place] % (Auto) 9.9 H, Eos % (Auto) 3.7, Baso % (Auto) 1.0, Neut # (Auto) 5.3, Lymph # (Auto) 1.2, [place] # (Auto) 0.8, Eos # (Auto) 0.3, Baso # (Auto) 0.1, Sodium 140, Potassium 3.1 L, Chloride 102, Carbon Dioxide 31 H, Anion Gap 10.1, BUN 7 D, Creatinine 0.70, Estimated Creat Clear 53, Estimated GFR 79, Est GFR ( Amer) 96, Glucose 101 H, Calcium 8.5, Total Bilirubin 0.9, AST 38 H, ALT 13, Alkaline Phosphatase 109, Total Protein 5.7 L, Albumin 3.2 L, Globulin 2.5, Albumin/Globulin Ratio 1.3, Vitamin B12 563, TSH 2.62 I & O for Last 24 hours: Intake & Output 11/21/24 11/22/24 11/23/24 11/24/24 23:59 23:59 23:59 23:59 Intake Total 820 / 1000 540 / 640 100 / 100 Output Total 0 / 0 1290 / 1540 650 / 650 Balance 820 / 1000 -750 / -900 -550 / -550 Weight 85.366 kg 84.323 kg 83.546 kg Constitutional Constitutional: no acute distress Comments: Pleasantly demented. *Routine HEENT Exam Head: Present normocephalic Eye: Present EOMI and PERRL ENT: Present mucous membranes moist *Routine Neck Exam Neck: Present supple; Absent lymphadenopathy *Routine Respiratory Exam Respiratory: Present CTA bilaterally *Routine Cardiovascular Exam Cardiovascular: Present RRR *Routine Abdominal Exam Abdominal: Present soft and normoactive bowel sounds; Absent tenderness *Routine Extremities Exam Extremities: Present edema; Absent cyanosis or clubbing *Routine Skin Exam Skin: Present warm; Absent rash *Routine Neurological Exam Neurological: Present alert Results Data Completed and Pending Labs on day of discharge: Labs from last 24 hours 11/24/24 11/23/24 11/22/24 08:41 16:30 02:05 WBC 7.9 D RBC 3.55 L D Hgb 8.6 L 8.6 L D Hct 29.0 L 28.2 L MCV 81.7 MCH 24.2 L MCHC 29.7 L RDW 20.0 H Plt Count 208 MPV 11.0 H Neut % (Auto) 67.8 Lymph % (Auto) 14.6 [place] % (Auto) 9.9 H Eos % (Auto) 3.7 Baso % (Auto) 1.0 Neut # (Auto) 5.3 Lymph # (Auto) 1.2 [place] # (Auto) 0.8 Eos # (Auto) 0.3 Baso # (Auto) 0.1 Sodium 140 Potassium 3.1 L Chloride 102 Carbon Dioxide 31 H Anion Gap 10.1 BUN 7 D Creatinine 0.70 Estimated Creat Clear 53 Estimated GFR 79 Est GFR ( Amer) 96 Glucose 101 H Calcium 8.5 Total Bilirubin 0.9 AST 38 H ALT 13 Alkaline Phosphatase 109 Total Protein 5.7 L Albumin 3.2 L Globulin 2.5 Albumin/Globulin Ratio 1.3 Vitamin B12 563 TSH 2.62 Antibody Identification Inconclusive DS: Diagnosis Discharge Diagnosis (1) Iron deficiency anemia: Status: Acute Code(s): D50.9 - Iron deficiency anemia, unspecified (2) Positive occult stool blood test: Status: Acute Code(s): R19.5 - Other fecal abnormalities Meds Home Medications and Allergies Home Medications ?Medication ?Instructions ?Recorded ?Confirmed ?Type montelukast 10 mg tablet 10 mg PO HS 01/05/21 11/22/24 History levothyroxine 25 mcg tablet 25 mcg PO DAILY 09/03/21 11/22/24 History ropinirole 0.25 mg tablet 0.25 mg PO HS 09/03/21 11/22/24 History atorvastatin 40 mg tablet 40 mg PO HS 10/16/22 11/22/24 History acetaminophen 500 mg tablet 500 mg PO Q6HP PRN Pain or fever 10/17/22 11/22/24 History polyethylene glycol 3350 17 gram 17 g PO DAILY 10/17/22 11/22/24 History oral powder packet brimonidine 0.1 % eye drops 1 drp ophthalmic (eye) BID 11/15/22 11/22/24 History (Alphagan P) docusate sodium 100 mg capsule 100 mg PO DAILY 11/15/22 11/22/24 History (Colace) omeprazole 20 mg capsule,delayed 20 mg PO DAILY 11/15/22 11/22/24 History release clopidogrel 75 mg tablet (Plavix) 75 mg PO DAILY #90 tabs 05/29/23 11/22/24 Rx tramadol 50 mg tablet 50 mg PO QID pain #120 tabs 12/16/23 11/22/24 Rx allopurinol 100 mg tablet 100 mg PO DAILY #30 tabs 03/09/24 11/22/24 Rx baclofen 10 mg tablet 10 mg PO HS 03/09/24 11/22/24 History duloxetine 30 mg capsule,delayed 30 mg PO DAILY 03/09/24 11/22/24 History release escitalopram oxalate 5 mg tablet 5 mg PO DAILY 03/09/24 11/22/24 History pregabalin 100 mg capsule 100 mg PO TID 03/09/24 11/22/24 History vit C 250 mg-vit E 90 mg-zinc 40 1 tab PO DAILY 03/09/24 11/22/24 History mg-copper 1 [id number] capsule (PreserVision AREDS-2) aripiprazole 2 mg tablet (Abilify) 2.5 mg PO DAILY 11/22/24 11/22/24 History loratadine 10 mg tablet (Claritin) 10 mg PO DAILY 11/22/24 11/22/24 History melatonin 3 mg tablet 3 mg PO HS 11/22/24 11/22/24 History metoprolol succinate 25 mg 25 mg PO DAILY 11/22/24 11/22/24 History tablet,extended release 24 hr bumetanide 0.5 mg tablet 0.5 mg PO DAILY 30 days #30 tabs 11/24/24 Rx ferrous sulfate 325 mg (65 mg 325 mg PO BID #60 tabs 11/24/24 Rx iron) tablet New Prescriptions to Start Prescriptions: bumetanide Modesto Melton ferrous sulfate Modesto Melton Allergies Allergy/AdvReac Type Severity Reaction Status Date / Time Sulfa (Sulfonamide Allergy Mild unkno Verified 11/22/24 02:09 Antibiotics) (SULFA (SULFONAMIDE ANTIBIOTICS)) Discharge Plan Disposition Patient Disposition: [facility] Condition: Fair Discharge Order Discharge Orders: Discharge Order (Routine); Ordered 11/24/24 Ordered By: Modesto Melton Follow up Plan Follow up with: Kat Gusman APRN [Nurse Practitioner, Gastroenterology] - 12/16/24 12:00 pm Prescriptions/Medication Reconciliation: New bumetanide 0.5 mg tablet 0.5 mg PO DAILY 30 Days Qty: 30 0RF ferrous sulfate 325 mg (65 mg iron) tablet 325 mg PO BID Qty: 60 0RF Continued Alphagan P 0.1 % drops 1 drp ophthalmic (eye) BID docusate sodium [Colace] 100 mg capsule 100 mg PO DAILY omeprazole 20 mg capsule,delayed release(DR/EC) 20 mg PO DAILY clopidogrel [Plavix] 75 mg tablet 75 mg PO DAILY Qty: 90 3RF tramadol 50 mg tablet 50 mg PO QID Qty: 120 0RF montelukast 10 MG tablet 10 mg PO HS levothyroxine 25 MCG tablet 25 mcg PO DAILY ropinirole 0.25 MG tablet 0.25 mg PO HS atorvastatin 40 mg tablet 40 mg PO HS polyethylene glycol 3350 17 gram Powder In Packet 17 g PO DAILY acetaminophen 500 mg Tablet 500 mg PO Q6HP PRN (Reason: Pain or fever) escitalopram oxalate 5 mg Tablet 5 mg PO DAILY pregabalin 100 mg capsule 100 mg PO TID PreserVision AREDS-2 250-90-40-1 mg Capsule 1 tab PO DAILY baclofen 10 mg tablet 10 mg PO HS duloxetine 30 mg capsule,delayed release(DR/EC) 30 mg PO DAILY allopurinol 100 mg tablet 100 mg PO DAILY Qty: 30 0RF melatonin 3 mg Tablet 3 mg PO HS loratadine [Claritin] 10 mg Tablet 10 mg PO DAILY aripiprazole [Abilify] 2 mg Tablet 2.5 mg PO DAILY metoprolol succinate 25 mg tablet extended release 24 hr 25 mg PO DAILY Discontinued lisinopril 10 mg tablet 10 mg PO DAILY Qty: 90 3RF Rx Instructions: May hold for systolic BP <90 Eliquis 5 mg tablet 5 mg PO BID Qty: 30 0RF aspirin 81 mg Tablet 81 mg PO DAILY Problem Reconciliation Problems Reviewed?: Yes Patient Discharge Instructions Patient Instructions: Anemia Print Language: Ivorian Providers Primary Care Provider: Provider,Referral Admit Provider: Jaxson Nogueira Attending Provider: Jaxson Nogueira
[2024-11-24 18:01] LABS: CEA 2.9 ng/mL (0.0-4.7)
[2024-11-24] MEDS: POTASSIUM CHLORIDE 20MEQ TAB 40 MEQ PO (18:08)
--- NOTE | 2024-11-24 20:43 | PC.NURSE ---
patient left the floor via EMS stretcher
== END 2024-11-24 20:43 | DRG 812 ==
LOC: ER 02:51 → 2ND 03:58
PROVIDERS: Internal Medicine; Internal Medicine Gastroenterology; Student in an Organized Health Care Education/Training Program; Admitting Provider Internal Medicine Adolescent Medicine; Emergency Provider Emergency Medicine; Visit Provider Internal Medicine Adolescent Medicine
PROC: 0DJ08ZZ Inspection of Upper Intestinal Tract, Via Natural or Artificial Opening Endoscopic (ICD-10-PCS; principal; 2024-11-23 15:00)
DX: D50.9 Iron deficiency anemia, unspecified (principal); G82.20 Paraplegia, unspecified; I69.351 Hemiplegia and hemiparesis following cerebral infarction affecting right dominant side; K92.2 Gastrointestinal hemorrhage, unspecified; I10 Essential (primary) hypertension; E03.9 Hypothyroidism, unspecified; F32.A Depression, unspecified; I25.10 Atherosclerotic heart disease of native coronary artery without angina pectoris; K29.50 Unspecified chronic gastritis without bleeding; E78.5 Hyperlipidemia, unspecified; Z86.711 Personal history of pulmonary embolism; I69.319 Unspecified symptoms and signs involving cognitive functions following cerebral infarction; Z79.899 Other long term (current) drug therapy; Z79.890 Hormone replacement therapy; Z79.02 Long term (current) use of antithrombotics/antiplatelets; Z79.01 Long term (current) use of anticoagulants; Z79.82 Long term (current) use of aspirin; Z88.2 Allergy status to sulfonamides
CPT/HCPCS: 36415; 36430; 71045; 80048; 80053; 82272; 82378; 82607; 82728; 82803; 83540; 83550; 84443; 85014; 85018; 85025; 85610; 85730; 86850; 86870; 97162; 97166; 99285; C1726; G0328; J1756; J1939; J2003; J2371; J2470; J2704; P9016